=== PATIENT | female | born 1985 | race Caucasian/White ===

== ENCOUNTER 2020-07-24 12:47 | Outpatient (REF) | payer MEDICAID, SELFPAY ==
[2020-07-24 14:41] LABS: Hematocrit 38.1 % (37-47); Hemoglobin 12.2 g/dl (12.0-16.0); Mean Corpuscular Volume 93.8 fL (80-98); Platelet Count 293 X10*3/uL (160-400); Red Blood Count 4.06 X10*6/uL (4.20-5.50); Red Cell Distribution Width 12.2 % (11.0-16.0); White Blood Count 8.7 X10*3/uL (4.8-10.8)
[2020-07-24 15:26] LABS: HCG Quantitative < 2 mIU/mL; Thyroid Stimulating Hormone 1.75 mIU/mL (0.32-4.0)
[2020-07-25 22:47] LABS: CA-125 18 U/mL (<35)
== END 2020-07-24 12:48 | disposition home or self-care (01) ==
LOC: HO.LAB 12:47
PROVIDERS: PCP Internal Medicine; Visit Provider Obstetrics & Gynecology
DX: N83.292 Other ovarian cyst, left side (principal); N92.1 Excessive and frequent menstruation with irregular cycle
CPT/HCPCS: 36415; 84443; 84702; 85027; 86304

== ENCOUNTER 2020-08-02 09:42 | Outpatient (REF) | payer MEDICAID, SELFPAY ==
[2020-08-08 07:21] LABS: HPV mRNA E6/E7 rflx Not Detected (Not Detected)
== END 2020-08-02 09:43 | disposition home or self-care (01) ==
LOC: HO.LAB 09:42
PROVIDERS: Visit Provider Advanced Practice Midwife
DX: Z01.419 Encounter for gynecological examination (general) (routine) without abnormal findings (principal); N64.4 Mastodynia; Z20.2 Contact with and (suspected) exposure to infections with a predominantly sexual mode of transmission
CPT/HCPCS: 87624; 87625; 88142

== ENCOUNTER 2020-08-06 09:51 | Outpatient (REF) | payer MEDICAID, SELFPAY | END 2020-08-06 09:52 | disposition home or self-care (01) | LOC: HO.LAB 09:51 | PROVIDERS: Visit Provider Obstetrics & Gynecology | DX: N92.1 Excessive and frequent menstruation with irregular cycle (principal); R31.29 Other microscopic hematuria | CPT/HCPCS: 58100; 81025; 88305 ==

== ENCOUNTER → 2020-08-22 13:30 | Outpatient (BNVA) | payer MEDICAID, SELFPAY | PROVIDERS: Visit Provider Obstetrics & Gynecology | DX: Z76.89 Persons encountering health services in other specified circumstances (principal) ==

== ENCOUNTER 2020-10-17 14:07 | Outpatient (REF) | payer MEDICAID, SELFPAY ==
--- NOTE | 2020-10-17 14:11 | US_ITS ---
EXAMINATION: ULTRASOUND PELVIS CLINICAL INFORMATION: Left ovarian cyst. COMPARISON: None TECHNIQUE: Transabdominal and transvaginal ultrasound of the pelvis is performed. FINDINGS: On transabdominal ultrasound the uterus is retroverted and retroflexed measuring 7.4 cm in length, 4.5 cm in AP and 5.4 cm in transverse dimension. The endometrial thickness is 0.4 cm. The uterus is heterogeneous but no focal lesion seen. Right ovary measures 4.6 x 2.6 x 3.0 cm and volume 18.7 mL. There is an irregular shaped cyst measuring 2.2 x 2.3 x 1.1 cm with internal debris likely a complex cyst. Previously complex cyst measured 2.1 x 1.3 x 1.2 cm. A second complex cyst or paraovarian cyst previously is not visualized. However there is a hyperechoic area seen in the ovary measuring 0.6 x 0.5 x 0.4 cm which could be from resolved previously visualized complex cyst. The left ovary measures 5.5 x 2.3 x 2.6 cm and volume 17.2 mL. There is an anechoic cyst with internal echoes measuring 3.9 x 2.1 x 3.1 cm suggestive of a complex cyst. Previous complex cyst measured 2.6 x 1.6 x 2.4 cm with minimal enlargement on the present scan. A small corpus luteal cyst is seen measuring 1.2 x 1.2 x 1.2 cm. There is no free fluid in cul-de-sac. US/US pelvic complete IMPRESSION: 1. Unremarkable uterus. 2. Bilateral complex ovarian cyst. The right complex cyst is stable. The left lateral complex cyst appears slightly increased in size. 3. There is a hyperechoic area within the left ovary likely resolved previously noted paraovarian cyst or new complex cyst. 4. Recommend follow up ultrasound pelvis after 2-3 cycles.
== END 2020-10-17 14:08 | disposition home or self-care (01) ==
LOC: HO.US 14:07
PROVIDERS: Visit Provider Obstetrics & Gynecology
DX: N83.292 Other ovarian cyst, left side (principal)
CPT/HCPCS: 76830; 76856

== ENCOUNTER → 2020-10-31 14:35 | Outpatient (BNVA) | payer MEDICAID, SELFPAY | PROVIDERS: Visit Provider Obstetrics & Gynecology | DX: N83.291 Other ovarian cyst, right side (principal); N83.292 Other ovarian cyst, left side | CPT/HCPCS: 99212 ==

== ENCOUNTER 2020-11-02 11:03 | Outpatient (REF) | payer MEDICAID, SELFPAY ==
[2020-11-03 09:27] LABS: CA-125 26 U/mL (<35)
[2020-11-05 08:03] LABS: HIV AB/AG Nonreactive (Nonreactive); HIV Num 1 0.05 S/CO (0.00-0.99); ~HepC Num1 0.16 S/CO (0.00-0.79); ~Hepatitis C Antibody Nonreactive (Nonreactive)
[2020-11-05 08:24] LABS: HBsAGNum1 0.13 S/CO (0.00-0.99); Hepatitis B Surface Antigen Negative (Negative)
[2020-11-05 14:24] LABS: Syphilis Screen Nonreactive (Nonreactive)
== END 2020-11-02 11:04 | disposition home or self-care (01) ==
LOC: HO.LAB 11:03
PROVIDERS: Advanced Practice Midwife; PCP Internal Medicine; Visit Provider Obstetrics & Gynecology
DX: N83.292 Other ovarian cyst, left side (principal); Z20.2 Contact with and (suspected) exposure to infections with a predominantly sexual mode of transmission
CPT/HCPCS: 36415; 86304; 86780; 86803; 87340; 87389

== ENCOUNTER → 2021-02-11 11:03 | Outpatient (BNVA) | payer MEDICAID, SELFPAY | PROVIDERS: Visit Provider Obstetrics & Gynecology ==

== ENCOUNTER → 2022-03-27 09:06 | Outpatient (BNVA) | payer MEDICAID, SELFPAY | PROVIDERS: PCP Internal Medicine | DX: N32.81 Overactive bladder (principal); R31.29 Other microscopic hematuria; F17.210 Nicotine dependence, cigarettes, uncomplicated | CPT/HCPCS: 51798; 99202 ==

== ENCOUNTER 2022-05-16 11:56 | Outpatient (REF) | payer MEDICAID, SELFPAY ==
[2022-05-16 15:58] LABS: CT PCR NOT DETECTED (Not Detect.); NG PCR NOT DETECTED (Not Detect.)
[2022-05-22 15:21] LABS: HPV mRNA E6/E7 rflx Not Detected (Not Detected)
== END 2022-05-16 11:57 | disposition home or self-care (01) ==
LOC: HO.LAB 11:56
PROVIDERS: Visit Provider Advanced Practice Midwife
DX: Z01.419 Encounter for gynecological examination (general) (routine) without abnormal findings (principal); Z11.51 Encounter for screening for human papillomavirus (HPV)
CPT/HCPCS: 87491; 87591; 87624; 88142

== ENCOUNTER 2022-05-19 11:19 | Outpatient (REF) | payer MEDICAID, SELFPAY ==
--- NOTE | ~2022-05-19 | US_ITS ---
EXAMINATION: US PELVIS CLINICAL INFORMATION: Pelvic and perineal pain. COMPARISON: Ultrasound pelvis 10/17/2020. TECHNIQUE: Ultrasound of the pelvis is performed using both transabdominal and transvaginal transducers along with Doppler. Transvaginal imaging is performed due to inadequate visualization transabdominally. FINDINGS: Uterus: The uterus is retroverted, retroflexed and measures 7.7 cm in length, 4.0 cm AP and 4.6 cm in transverse dimension. The double wall endometrial thickness is 1.0 cm. The uterus is smooth in contour and has normal myometrial echogenicity. There is a lesion in the right posterior fundus measuring 1.3 x 1.1 x 1.3 cm. There is an anechoic simple cysts in the body of uterus measuring 0.3 x 0.2 x 0.4 cm. Small nabothian cysts seen in the cervix Adnexa: Both ovaries are visualized. There is normal color flow to the adnexa. There is no ovarian torsion. There is no pelvic ascites or fluid collection. There are bilateral cystic structures in the adnexa likely paraovarian cyst or hydrosalpinx. The right adnexa tubular structure measures 6.9 x 3.9 x 5.7 cm and left adnexal tube structure measures 5.3 x 5.3 x 3.6 cm. Right ovary measures 2.8 x 2.8 x 1.9 cm and volume 7.8 mL. There is a dominant follicle. Left ovary measures 1.8 x 2.3 x 1.8 cm and volume 3.9 mL. No focal lesion seen. The bladder wall is trabeculated. There is no free fluid. US/US pelvic and transvaginal IMPRESSION: Bilateral paraovarian cyst or hydrosalpinx in the adnexa. The uterus has a solitary fibroid and a myometrial cyst. Unremarkable left ovary. Enlarged right ovary with likely dominant follicle.
== END 2022-05-19 11:20 | disposition home or self-care (01) ==
LOC: HO.US 11:19
PROVIDERS: Visit Provider Advanced Practice Midwife
DX: R10.2 Pelvic and perineal pain (principal)
CPT/HCPCS: 76830; 76856

== ENCOUNTER → 2022-05-27 10:41 | Outpatient (BNVA) | payer MEDICAID, SELFPAY | PROVIDERS: PCP Internal Medicine; Visit Provider Advanced Practice Midwife | DX: Z71.2 Person consulting for explanation of examination or test findings (principal) | CPT/HCPCS: 99212 ==

== ENCOUNTER 2022-06-04 11:44 | Outpatient (REF) | payer MEDICAID, SELFPAY ==
--- NOTE | ~2022-06-04 | US_ITS ---
EXAMINATION: US RETROPERITONEAL LIMITED (RENAL ONLY) CLINICAL INFORMATION: Microscopic hematuria. COMPARISON: CT abdomen and pelvis 02/03/2020. TECHNIQUE: Real-time imaging of the kidneys. FINDINGS: RIGHT KIDNEY: 10.0 x 3.8 x 3.9 cm (SAG x AP x TRV). The kidney is normal in size, contour, and echogenicity. Renal cortical thickness is normal. No calculi or focal parenchymal lesions. No hydronephrosis. LEFT KIDNEY: 10.7 x 5.3 x 5.4 cm (SAG x AP x TRV). The kidney is normal in size, contour, and echogenicity. Renal cortical thickness is normal. No calculi or focal parenchymal lesions. No hydronephrosis. US/US renal BI IMPRESSION: Normal appearance of both kidneys..
== END 2022-06-04 11:45 | disposition home or self-care (01) ==
LOC: HO.US 11:44
DX: R31.29 Other microscopic hematuria (principal)
CPT/HCPCS: 76775

== ENCOUNTER 2023-05-25 08:03 | Outpatient (REF) | payer MEDICAID, SELFPAY ==
--- NOTE | ~2023-05-25 | US_ITS ---
EXAMINATION: US RETROPERITONEAL LIMITED (RENAL ONLY) CLINICAL INFORMATION: Other microscopic hematuria. COMPARISON: Bilateral renal ultrasound dated 06/04/2022. CT abdomen and pelvis with contrast dated 02/03/2020. TECHNIQUE: Real-time imaging of the kidneys. Limited visualization due to bowel gas. FINDINGS: RIGHT KIDNEY: 10.8 x 4.3 x 6.0 cm (SAG x AP x TRV). No hydronephrosis. No renal calculi. Renal cortical thickness is normal. Limited visualization. LEFT KIDNEY: 10.4 x 5.0 x 6.4 cm (SAG x AP x TRV). No hydronephrosis. No renal calculi. Renal cortical thickness is normal. Limited visualization. US/US renal BI IMPRESSION: No hydronephrosis. No renal calculi. Limited visualization.
== END 2023-05-25 08:04 | disposition home or self-care (01) ==
LOC: HO.US 08:03
PROVIDERS: Visit Provider Nurse Practitioner Family
DX: R31.29 Other microscopic hematuria (principal)
CPT/HCPCS: 76775

== ENCOUNTER 2023-05-28 10:03 | Outpatient (AMB) | payer MEDICAID, SELFPAY ==
--- NOTE | 2023-05-28 10:23 | A.OFFVIS_ITS ---
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 Present ([place]) Allergies ampicillin Allergy (Unknown, Verified 05/28/23 10:30) rash Penicillins [PCN] Allergy (Unknown, Verified 05/28/23 10:30) RASH tuberculin, purified protein deriva [TB TEST] Allergy (Unknown, Verified 05/28/23 10:30) UNK Medication List - Last Reconciled 05/28/23 by Paula Downing CNM cholecalciferol (vitamin D3) 50 mcg PO DAILY ibuprofen 800 mg PO Q8H PNV,calcium [id number] acid 27 mg iron- 1 mg ( Vitamins Plus Low Iron) 1 tab PO DAILY Is last menstrual period known: No (Last month at the end of the month) Post menopausal: No HPI 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 She had her Pap smear done last year and it was negative previous to that it was unsatisfactory but she has no history of abnormal Paps. She had been seen for multiple visits by other providers in this office and had been referred to [facility] for complex ovarian cyst. She says the only thing she ended up taking was an antibiotic for 7 days that was a big pill she did not want to take control pills because she wanted to conceive at that time and she is sort of giving up on that at this time. She says she has with her current partner for 4 years she says she has been having pain in her cervix for 4 years. She says it is there all the time but she also says it comes and goes and she does not notice a pattern although she says it is not when she has her period. She is not contraceptive thing and does not want to contraceptive. She had her only child 21 years ago. [facility] Medical History Chronic pelvic pain in female Complex cyst of both ovaries Surgical History History of surgery of head Family History Maternal Grandmother Diabetes Mother Diabetes Social History (Updated 05/28/23 @ 10:32 by MATHIEU Ledezma) Household Members Other:: daughter Housing: House Alcohol intake: never Patient Tobacco Use Status: Current everyday Tobacco user Cigarettes Per Day: 3 Sexual orientation: Straight/Heterosexual Gender identity: Female Female Reproductive History Menstrual Age of Menarche: 12 Duration of menses: 8-10 days control method: none Total pregnancies: 2 Full term: 1 Number of Living Children: 1 Ab induced: 1 Date of last pap smear: 05/19/22 (negative) History of abnormal pap smear: No Physical Exam Vital Signs: Last Vital Signs BP 114/76 05/28/23 10:25 BMI result Body Mass Index 31.2 Const General: healthy appearing, comfortable, no acute distress, well developed and alert Nutritional Appearance: average body habitus Orientation/consciousness: patient oriented x3 Limitations: no limitations HEENT Head: Yes normocephalic Neck Neck: Yes normal visual inspection Chest Chest palpation & inspection: normal inspection of the chest Breast/axilla inspection: normal inspection of the breasts and normal inspection of the axillae Breast/axilla palpation: normal palpation of the breasts and normal palpation of the axillae Resp Effort & Inspection: normal respiratory effort GI Inspection: Yes normal to inspection, No Abdominal wall edema and No distended Palpation (GI): Soft to palpation and nontender General: Yes bladder normal to palpation External Female Exam: normal external appearance and normal appearance of the urethra Speculum Exam - Vagina: normal appearance of the vagina, normal palpation and normal vaginal discharge Speculum Exam - Cervix: normal appearance of the cervix, normal palpation and nontender Bimanual exam- vagina & uterus: normal bimanual exam, normal palpation, uterine size normal, bladder normal to palpation, consistency normal, normal palpation, uterine mobility normal, uterine shape normal, No Cervical tenderness present, non-tender (Retroverted. Appropriately tender with palpation of corpus/fundus posterio), no cervical motion tenderness and other (Uterus is markedly retroverted , patient is appropriatetly tender at corpus) Bimanual Exam- Adnexa, other: normal adnexae, no masses, normal and No adnexal tenderness Neuro General: patient oriented x3 Results Reviewed Results Reviewed: Previous visits by other providers previous ultrasounds previous Pap smears and previous endometrial biopsies all reviewed.. Assessment & Plan Assessment & Plan (1) Complex cyst of both ovaries: Comment: Persistent with hydrosalpinx Code(s): N83.291 - Other ovarian cyst, right side; N83.292 - Other ovarian cyst, left side (2) Pelvic pain: Code(s): R10.2 - Pelvic and perineal pain (3) Well woman exam with routine gynecological exam: Code(s): Z01.419 - Encounter for gynecological examination (general) (routine) without abnormal findings (4) Dyspareunia in female: Comment: Most likely related to retroverted uterus, previous ultrasound findings appreciated. Code(s): N94.10 - Unspecified dyspareunia Plan -----Discussed in this visit the following: healthy balanced diet, regular and consistent exercise, getting recommended health screens, doing the best she can for her particular health concerns, kegel exercises, pap smear screening and followup recommendations, mammography screening and SBE, normal changes in cycles in her life stage--- . She has her mammogram appointment already set up for after her birthday in [birth year]. She did inquire as to whether not I recommended panty liners and I do not and I gave her the reasons why. I showed her with an anatomical display model why when the body of the uterus is bumped into posteriorly as in with relations that it is so uncomfortable just as it is during a pelvic exam for almost anybody with her retroverted uterus the body of the uterus is much more sensitive than the cervix. Discussed the most likely finding that there is no pathology with her uterus though we will be checking with the ultrasound to see if there is any change with her previously noted complex cysts for which she declined control pill treatment from [facility]. Additionally hydrosalpinx was noted on ultrasound in the past and that certainly could could contribute to discomfort as well but that interventions to manage those things would be invasive and clearly she has dec ided against those be previously. I am ordering a follow-up ultrasound and we will see her after suggested changes in position with intercourse but also if she gets pain not related intercourse in any way to write down when it happens and keep track. We will see her after the ultrasound to review. She noted that the pain did start 4 years ago when she began with this partner and that is when she is again seeking as well. Orders: Orders Bacterial Vaginosis Panel Today Z01.419 - Encounter for gynecological examination (general) (routine) without abnormal findings CT NG by PCR Today Z01.419 - Encounter for gynecological examination (general) (routine) without abnormal findings US pelvic and transvaginal Today N83.291 - Other ovarian cyst, right side, N83.292 - Other ovarian cyst, left side, N94.10 - Unspecified dyspareunia, R10.2 - Pelvic and perineal pain, Z01.419 - Encounter for gynecological examination (general) (routine) without abnormal findings Coding Level of Care Code New Pt Prev Care 18-39yr([id number] Diagnoses Complex cyst of both ovaries N83.291; N83.292 Pelvic pain R10.2 Well woman exam with routine gynecological exam Z01.419 Dyspareunia in female N94.10
[2023-05-28 10:25] VITALS: BP 114/76; BMI 31.2
== END 2023-05-28 11:16 | disposition home or self-care (01) ==
LOC: HO.HWS 10:03
PROVIDERS: PCP Registered Nurse; Visit Provider Advanced Practice Midwife
DX: N83.291 Other ovarian cyst, right side (principal); N83.292 Other ovarian cyst, left side; R10.2 Pelvic and perineal pain; Z01.419 Encounter for gynecological examination (general) (routine) without abnormal findings; N94.10 Unspecified dyspareunia
CPT/HCPCS: 99385

== ENCOUNTER 2023-05-28 10:03 | Outpatient (REF) | payer MEDICAID, SELFPAY ==
[2023-05-29 04:16] LABS: CT PCR NOT DETECTED (Not Detect.); NG PCR NOT DETECTED (Not Detect.)
[2023-05-29 15:42] LABS: BV Int Neg Control Negative (Negative); BV Int Pos Control Positive (Positive)
== END 2023-05-28 10:04 | disposition home or self-care (01) ==
LOC: HO.LNP 10:03
PROVIDERS: PCP Registered Nurse; Visit Provider Advanced Practice Midwife
DX: Z01.419 Encounter for gynecological examination (general) (routine) without abnormal findings (principal); N83.291 Other ovarian cyst, right side; N83.292 Other ovarian cyst, left side; R10.2 Pelvic and perineal pain; N94.10 Unspecified dyspareunia; Z79.899 Other long term (current) drug therapy
CPT/HCPCS: 0353U; 87480; 87510; 87660; 99385

== ENCOUNTER 2023-06-05 10:15 | Outpatient (REF) | payer MEDICAID, SELFPAY ==
[2023-06-05 17:23] LABS: Urine Cytology See Pathology rpt
== END 2023-06-05 10:16 | disposition home or self-care (01) ==
LOC: HO.LNP 10:15
PROVIDERS: Visit Provider Nurse Practitioner Family
DX: R31.29 Other microscopic hematuria (principal); F17.200 Nicotine dependence, unspecified, uncomplicated
CPT/HCPCS: 81003; 88112; 99212

== ENCOUNTER 2023-06-05 10:15 | Outpatient (AMB) | payer MEDICAID, SELFPAY ==
--- NOTE | 2023-06-05 10:18 | MHC.OFFVIS ---
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 Tony. She presents to the office today for follow-up of her microscopic hematuria. In discussion with the patient today she reports to be doing and feeling well. She denies any urinary issues or concerns at this time. She does report a longstanding smoking history since the age of [age] years old on and off. She reports smoking 1-2 packs per day. However more recently has been limiting herself to 2 cigarettes a day. She denies any known chemical exposure. She denies urinary urgency, urinary frequency, incontinence, nocturia, hematuria, dysuria, foul smelling urine, changes to urinary stream, flank pain, fever, and or chills. She is happy with her current voiding parameters. Discussed further microscopic hematuria workup versus surveillance monitoring. Discussed risks and benefits of surveillance monitoring verses further microscopic hematuria workup. In office urinalysis today with 2+ microscopic hematuria. Patient otherwise denies any issues or concerns at this time. [facility] Medical History Chronic pelvic pain in female Complex cyst of both ovaries Surgical History History of surgery of head Family History Maternal Grandmother Diabetes Mother Diabetes Social History (Updated 05/28/23 @ 10:32 by MATHIEU Ledezma) Household Members Other:: daughter Housing: House Alcohol intake: never Patient Tobacco Use Status: Current everyday Tobacco user Cigarettes Per Day: 3 Sexual orientation: Straight/Heterosexual Gender identity: Female Female Reproductive History Menstrual Age of Menarche: 12 Review of Systems Const All systems reviewed & are unremarkable except as noted in HPI and below Physical Exam Const General: cooperative, comfortable, no acute distress, well developed, alert and awake Orientation/consciousness: patient oriented x3 HEENT Head: Yes normal to inspection, Yes normocephalic and Yes atraumatic Ears: hearing grossly normal bilaterally Eyes General: appearance normal, both eyes and all related structures Neck Neck: Yes normal visual inspection and Yes trachea midline Chest Chest palpation & inspection: normal inspection of the chest Resp Effort & Inspection: normal respiratory effort and able to speak in complete sentences Cardio Rate: regular rate GI Inspection: Yes normal to inspection General: Yes no CVA tenderness Back/Spine/Pelvis Back: no CVA tenderness Skin General skin exam: no rashes or lesions noted Neuro General: patient oriented x3 Extrem General: Yes normal to inspection Psych Appearance: grossly normal and well kempt Mental Status: mental status grossly normal Speech and movement: Normal speech and movement present and Clear speech present Affect: normal affect Attitude: cooperative Thought process: Normal thought process present Thought content: Normal thought content present Insight: Good insight present (Psych) Judgement: Good judgement present (Psych) Results AMB Urinalysis, Automated UA Leukoctes 0 Roopa/uL Last Edit by Sudarshan Man on 06/05/23 10:39 UA Nitrite Last Edit by Sudarshan Man on 06/05/23 10:39 UA Urobilinogen 0.2 mg/dL Last Edit by Sudarshan Man on 06/05/23 10:39 UA Protein 0 mg/dL Last Edit by Sudarshan Man on 06/05/23 10:39 UA pH 6.0 Last Edit by Sudarshan Man on 06/05/23 10:39 UA Blood 80 Zeb/uL Last Edit by Sudarshan Man on 06/05/23 10:39 UA Specific [place] 1.020 Last Edit by Sudarshan Man on 06/05/23 10:39 UA Ketone Negative Last Edit by Sudarshan Man on 06/05/23 10:39 UA Bilirubin 0 mg/dL Last Edit by Sudarshan Man on 06/05/23 10:39 UA Glucose 0 mg/dL Last Edit by Sudarshan Man on 06/05/23 10:39 Assessment & Plan Assessment & Plan (1) Microscopic hematuria: Code(s): R31.29 - Other microscopic hematuria (2) Nicotine dependence: Code(s): F17.200 - Nicotine dependence, unspecified, uncomplicated Plan In office urinalysis results reviewed with the patient today; will send for urine cytology. Discussed at length importance of quitting smoking for overall health and well-being. Discussed at length surveillance monitoring verses further microscopic hematuria workup. Will obtain CT urogram for further assessment evaluation. BUN and creatinine ordered for imaging. Discussed, educated, instructed on the importance of drinking plenty of water daily. Patient denies any bothersome urinary issues or concerns at this time. Follow-up in office cystoscopy with imaging to be completed prior; or sooner with any issues, concerns, and or questions. Orders: Orders Urine Cytology Today R31.29 - Other microscopic hematuria Blood Urea Nitrogen Today R31.29 - Other microscopic hematuria Creatinine Today R31.29 - Other microscopic hematuria CT urogram Today F17.200 - Nicotine dependence, unspecified, uncomplicated, R31.29 - Other microscopic hematuria AMB Urinalysis Automated Today Z13.9 - Encounter for screening, unspecified Patient Instructions: The patient had an opportunity to ask questions regarding the treatment plan. All questions were answered. Physical exam, labs, and imaging were discussed and reviewed in detail. As well as risks, benefits, and discussion of treatment choices. No major barriers to understanding were identified. The patient expressed understanding and agreement with the above treatment plan. The patient was made aware they should contact our office by phone for worsening of their current condition, the appearance of new symptoms, or with any questions or concerns. Compliance is encouraged with any medications and follow up testing that is ordered. It is a privilege to be allowed the opportunity to participate in? your urological care.? Again, if you have any questions or concerns If you have any questions or concerns please do not hesitate to contact me. The office is [phone]. This note is constructed using voice recognition software. While every effort has been made to ensure accuracy car framer errors may have been included. Yours sincerely, LUCITA Johnson Coding Level of Care Code New Pt Level 3 (22325) Diagnoses Microscopic hematuria R31.29 Nicotine dependence F17.200
== END 2023-06-05 10:50 | disposition home or self-care (01) ==
PROVIDERS: PCP Registered Nurse; Visit Provider Nurse Practitioner Family
DX: R31.29 Other microscopic hematuria (principal); F17.200 Nicotine dependence, unspecified, uncomplicated; Z13.9 Encounter for screening, unspecified
CPT/HCPCS: 99203

== ENCOUNTER 2023-06-23 10:27 | Outpatient (REF) | payer MEDICAID, SELFPAY ==
--- NOTE | ~2023-06-23 | US_ITS ---
EXAMINATION: US PELVIS CLINICAL INFORMATION: Pelvic pain, ovarian cyst. COMPARISON: Ultrasound pelvis 05/19/2022. TECHNIQUE: Ultrasound of the pelvis is performed using both transabdominal and transvaginal transducers along with Doppler. Transvaginal imaging is performed due to inadequate visualization transabdominally. FINDINGS: Uterus: The uterus is retroverted, retroflexed and measures 8.3 x 4.5 x 5.7 cm. 1.6 x 1.2 x 1.2 cm fibroid was not identified on the prior exam. 2.3 x 2.4 x 2.0 cm fibroid previously measured 1.3 x 0.2 x 0.4 cm. Small amount of free fluid in the pelvis. Endometrial thickness is 1.2 cm. Small nabothian cysts in the cervix. Right ovary is seen only on transabdominal ultrasound images and measures 2.2 x 1.7 x 2.4 cm, volume 4.7 mL. Visualization of the right ovary is limited. 5.5 x 4.9 x 5.6 cm right adnexal tubular/complex cystic, septated structure redemonstrated adjacent to the right ovary, previously 6.9 x 3.9 x 5.7 cm. Left ovary measures 3.2 x 2.1 x 2.5 cm, volume 8.8 mL. Mildly complex 1.9 x 0.7 x 1.5 cm left ovarian cyst with a few low-level internal echoes was not previously identified. Correlation with menstrual history recommended to determine further management, although this is likely physiologic and, in this case, in a premenopausal patient, there would be no indication for followup imaging. Left adnexal tubular/complex cystic, septated structure measures 5.4 x 5.2 x 4.6 cm, previously 5.3 x 5.3 x 3.6 cm. US/US pelvic and transvaginal IMPRESSION: 1. Persistent large bilateral adnexal tubular/complex cystic structures. Differential considerations include hydrosalpinx or paraovarian/ovarian cyst. MRI could be considered for further evaluation. 2. Fibroid uterus. 3. Endometrial thickness is 1.2 cm. 4. Limited visualization of the right ovary. 5. Mildly complex 1.9 cm left ovarian cyst was not previously identified. Recommend gynecologic consultation and correlation with menstrual history to determine further management.
== END 2023-06-23 10:28 | disposition home or self-care (01) ==
LOC: HO.US 10:27
PROVIDERS: PCP Registered Nurse; Visit Provider Advanced Practice Midwife
DX: N94.10 Unspecified dyspareunia (principal); N83.291 Other ovarian cyst, right side; N83.292 Other ovarian cyst, left side; R10.2 Pelvic and perineal pain
CPT/HCPCS: 76830; 76856

== ENCOUNTER 2023-07-01 14:58 | Outpatient (REF) | payer MEDICAID, SELFPAY ==
--- NOTE | ~2023-07-01 | CT_ITS ---
EXAMINATION: CT ABDOMEN AND PELVIS WITHOUT AND WITH CONTRAST CLINICAL INFORMATION: Microscopic hematuria COMPARISON: Renal ultrasound from 05/25/[address] scan of the abdomen and pelvis from 02/03/2020 TECHNIQUE: Noncontrast CT of the abdomen and pelvis is performed followed by split bolus contrast-enhanced images using 85 mL Omnipaque 350 contrast.? Postcontrast imaging is performed during the combined nephrogram and excretion phase. Sagittal and coronal reformatted images were obtained on the technologist's workstation for both the precontrast and postcontrast phases. This CT examination was performed using dose optimization techniques as appropriate, variously including the following: *Automated exposure control *Adjustment of mA and/or kV according to patient size (this includes techniques or standardized protocols for targeted exams where dose is matched to indication/reason for exam; i.e. extremities or head) *Use of iterative reconstruction technique DLP: 807 mGy-cm FINDINGS: LUNG BASES: The visualized lung bases are unremarkable. LIVER, GALLBLADDER, AND BILIARY TREE: The liver is normal in size, shape, and attenuation. No focal hepatic lesion or biliary ductal dilatation is present. The gallbladder is unremarkable with no evidence of radiopaque gallstones, gallbladder wall thickening, or obvious pericholecystic inflammatory changes. PANCREAS: Unremarkable. SPLEEN: Unremarkable. ADRENAL GLANDS: Unremarkable. KIDNEYS AND URETERS: The kidneys are normal in size, shape, and attenuation. No hydronephrosis, hydroureter, or calculi seen. No perinephric stranding. BLADDER: Unremarkable. GASTROINTESTINAL TRACT: The small and large bowel are unremarkable. The appendix is unremarkable. ABDOMINAL WALL: No significant hernia is appreciated. LYMPH NODES: Normal. VASCULAR: Unremarkable. PELVIC VISCERA: There is stable appearance of retroverted uterus and several adnexal cysts with septations mostly on the left, the largest cystic component in front of the uterus measured 5.0 x 3.5 cm AVM component to the left of the uterus measured 3.0 x 2.9 cm findings most likely due to hydrosalpinx and stable. Right adnexa is unremarkable. There is no fluid in the pelvis. OSSEUS STRUCTURES: Unremarkable. CT/CT urogram IMPRESSION: Chronic hydrosalpinx on the left. Unremarkable kidneys ureters and urinary bladder.
[2023-07-01] MEDS: iohexoL 350 MG/ML 100 ML INFUS..BTL IV (16:00)
== END 2023-07-01 14:59 | disposition home or self-care (01) ==
LOC: HO.CT 14:58
PROVIDERS: PCP Registered Nurse; Visit Provider Nurse Practitioner Family
DX: R31.29 Other microscopic hematuria (principal); F17.200 Nicotine dependence, unspecified, uncomplicated
CPT/HCPCS: 74178; Q9967

== ENCOUNTER 2023-07-15 12:46 | Outpatient (AMB) | payer MEDICAID, SELFPAY ==
--- NOTE | 2023-07-15 12:54 | A.OFFVIS_ITS ---
Intake Intake Visit Reasons: cysto/CT Intake Note: Patient presents today for a CYSTOSCOPY Procedure, CT Scan booked on 07/01/2023: Meds: None Allergies to Antibiotic: Ampicillin & Penicillin Blood Thinner: None Urinalysis test cleared for Cysto Disposable Uro-G Cystoscope Cannula: Lot: [id number] Exp: 02/15/2025 Plc Controls Engineer Required: Yes Plc Controls Engineer Language: [place] Information Interpreted: non-clinical & clinical Accompanied by: Self / Same As Patient Allergies ampicillin Allergy (Unknown, Verified 07/15/23 12:55) rash Penicillins [PCN] Allergy (Unknown, Verified 07/15/23 12:55) RASH tuberculin, purified protein deriva [TB TEST] Allergy (Unknown, Verified 07/15/23 12:55) UNK HPI cysto/CT HPI Details Carolyn Araya is a 37-year-old female who presents today to the office for a follow up Cysto/CT scan. 07/15/23 ? A certified building maintenance supervisor was present during the visit. The patient was previously last seen by Kerri Mondragon NP, on 06/05/23 for microscopic hematuria and nephrolithiasis. Co-morbidity nicotine dependence since the age of [age] years old on and off. She reports smoking 1-2 packs per day. However, more recently, she has been limiting herself to two cigarettes a day. She has occasional urinary incontinence with urgency, which is not significantly bothersome, and wears a pad every day. She noticed an occasional odor from her urine, but when checked, she was told she did not have a UTI. I have discussed that it may be that the urine is concentrated, and I have encouraged her to increase her water intake. We discussed avoiding dietary bladder irritants today. 07/01/23 ? CT urogram result reviewed -- The kidneys are normal in size, shape, and attenuation. No hydronephrosis, hydroureter, or calculi seen. 06/10/23: Urine Cytology result reviewed -- Negative for high-grade urothelial carcinoma. Evaluation today-- Blood: 0 Zeb/uL, leukocytes: 0. Proteins: 15 ml/dl. Cystoscopy findings? There is a mild bladder wall thickening. There is no suspicious bladder lesions noted. Plan: The patient will follow up in one year with Kerri Mondragon, and will monitor urinalysis, and repeat urine cytology PRN. PFSH Medical History (Updated 07/15/23 @ 14:12 by Rafat Walter) Bladder wall thickening Chronic pelvic pain in female Complex cyst of both ovaries Surgical History (Updated 07/15/23 @ 12:56 by MATHIEU Gorman) Hx of cystoscopy History of surgery of head Family History Maternal Grandmother Diabetes Mother Diabetes Social History Household Members Other:: daughter Housing: House Alcohol intake: never Patient Tobacco Use Status: Current everyday Tobacco user Cigarettes Per Day: 3 Sexual orientation: Straight/Heterosexual Gender identity: Female Female Reproductive History Menstrual Age of Menarche: 12 Review of Systems Const All systems reviewed & are unremarkable except as noted in HPI and below Reports no additional complaints Eyes Reports no additional complaints ENT Reports no additional complaints Card Reports no additional complaints Resp Reports no additional complaints GI Reports no additional complaints Musc Reports no additional complaints Skin/Breast Reports system reviewed and no additional complaints, except as documented Neuro Reports no additional complaints Psych Reports no additional complaints Endo Reports no additional complaints Rojas/Lymph Reports no additional complaints Aller/Immun Reports no additional complaints Physical Exam Const General: healthy appearing, no acute distress and well developed Orientation/consciousness: patient oriented x3 HEENT Head: Yes normocephalic and Yes atraumatic Eyes Conjunctivae: conjunctivae normal Neck Neck: Yes normal visual inspection Chest Chest palpation & inspection: normal inspection of the chest Resp Effort & Inspection: normal respiratory effort Cardio Rate: regular rate GI Inspection: Yes normal to inspection Other: pelvic floor well supported. Skin General skin exam: no rashes or lesions noted Neuro General: patient oriented x3 Extrem General: Yes no pedal edema Psych Appearance: grossly normal Affect: normal affect Office Procedures Cystoscopy Consent Discussed risk and benefit or proposed procedure with the patient. Information consent for procedure given to the patient. Discussed technical aspects, risks, benefits and alternatives in full. Addressed all of the patient's questions and concerns regarding the procedure. The patient demonstrated knowledge and understanding. They wish to proceed with this procedure. Preparation The patient was prepped in the usual manner. A shotblast operator was present and in the room. Genitalia was prepped with betadine solution in a sterile manner. Lidocaine Jelly 2% was placed into the urethra and 16Fr flexible Olympus cystoscope was inserted into the meatus after adequate lubrication. Procedure Time out per protocol performed. Bladder Inspection Bladder Inspection: The bladder was inspected in its entirety with utilization retroflexion displaying: Tumor(s): none visualized Trabeculation: mild to moderate Mucosal Erthema: N/A Orifices: normal shape and position Urethra: normal Cystoscopy findings: no suspicious bladder lesions visualized [id number] DISPOSABLE SCOPE URO-G FLEXIBLE SCOPE Procedure code (CPT) selection complete Office Meds lidocaine HCl 2 % mucosal jelly in applicator Performing Provider: Jaren Hunter MD [facility] Administered by: Tricia Soto RN on 07/15/23 13:47 Dose Route Admin Location Dispensed Lot Number Expiration Date NDC Telehealth Nurse 10 mL intra-urethral 20 mL naproxen 500 mg tablet Performing Provider: Jaren Hunter MD Performing Location[facility] Administered by: Tricia Soto RN on 07/15/23 13:47 Dose Route Admin Location Dispensed Lot Number Expiration Date NDC Telehealth Nurse 500 mg PO 1 tab ciprofloxacin HCl 500 mg tablet Performing Provider: Jaren Hunter MD Performing Location: [facility] Administered by: Tricia Soto RN on 07/15/23 13:47 Dose Route Admin Location Dispensed Lot Number Expiration Date NDC Telehealth Nurse 500 mg PO 1 tab Results AMB Urinalysis, Automated UA Leukoctes 0 Roopa/uL Last Edit by MATHIEU Gorman on 07/15/23 13:22 UA Nitrite Negative Last Edit by MATHIEU Gorman on 07/15/23 13:22 UA Urobilinogen 0.2 mg/dL Last Edit by MATHIEU Gorman on 07/15/23 13:2 2 UA Protein 15 mg/dL Last Edit by Brittany Valentine A on 07/15/23 13:22 UA pH 7.0 Last Edit by Brittany Valentine Virgie on 07/15/23 13:22 UA Blood 0 Zeb/uL Last Edit by Brittany Valentine A on 07/15/23 13:22 UA Specific [place] 1.020 Last Edit by Brittany [facility] on 07/15/23 13: 22 UA Ketone Positive Last Edit by Brittany [facility] on 07/15/23 13:22 5 mg/dL Brittany Valentine 07/15/23 13:22 UA Bilirubin 1 mg/dL Last Edit by Brittany Valentine Virgie on 07/15/23 13:22 1+ Brittany Valentine 07/15/23 13:22 UA Glucose 0 mg/dL Last Edit by Brittany Valentine Virgie on 07/15/23 13:22 Results Reviewed Results Reviewed: Laboratory Last Values Urine pH (Auto) 7.0 07/15/23 12:56 Specific [place] (Auto) 1.020 07/15/23 12:56 Urine Protein (Auto) 15 mg/dL 07/15/23 12:56 Glucose (UA)(Auto) 0 mg/dL 07/15/23 12:56 Urine Ketones (Auto) Positive 07/15/23 12:56 Urine Blood (Auto) 0 Zeb/uL 07/15/23 12:56 Urine Nitrite (Auto) Negative 07/15/23 12:56 Urine Bilirubin (Auto) 1 mg/dL 07/15/23 12:56 Urine Urobilinogen (Auto) 0.2 mg/dL 07/15/23 12:56 Leukocyte Esterase (Auto) 0 Roopa/uL 07/15/23 12:56 07/01/23: CT ABDOMEN AND PELVIS WITHOUT AND WITH CONTRAST. FINDINGS: LUNG BASES: The visualized lung bases are unremarkable. LIVER, GALLBLADDER, AND BILIARY TREE: The liver is normal in size, shape, and attenuation. No focal hepatic lesion or biliary ductal dilatation is present. The gallbladder is unremarkable with no evidence of radiopaque gallstones, gallbladder wall thickening, or obvious pericholecystic inflammatory changes. PANCREAS: Unremarkable. SPLEEN: Unremarkable. ADRENAL GLANDS: Unremarkable. KIDNEYS AND URETERS: The kidneys are normal in size, shape, and attenuation. No hydronephrosis, hydroureter, or calculi seen. No perinephric stranding. BLADDER: Unremarkable. GASTROINTESTINAL TRACT: The small and large bowel are unremarkable. The appendix is unremarkable. ABDOMINAL WALL: No significant hernia is appreciated. LYMPH NODES: Normal. VASCULAR: Unremarkable. PELVIC VISCERA: There is stable appearance of retroverted uterus and several adnexal cysts with septations mostly on the left, the largest cystic component in front of the uterus measured 5.0 x 3.5 cm AVM component to the left of the uterus measured 3.0 x 2.9 cm findings most likely due to hydrosalpinx and stable. Right adnexa is unremarkable. There is no fluid in the pelvis. OSSEUS STRUCTURES: Unremarkable. IMPRESSION: Chronic hydrosalpinx on the left. Unremarkable kidneys ureters and urinary bladder. 06/23/23: US PELVIC FINDINGS: Uterus: The uterus is retroverted, retroflexed and measures 8.3 x 4.5 x 5.7 cm. 1.6 x 1.2 x 1.2 cm fibroid was not identified on the prior exam. 2.3 x 2.4 x 2.0 cm fibroid previously measured 1.3 x 0.2 x 0.4 cm. Small amount of free fluid in the pelvis. Endometrial thickness is 1.2 cm. Small nabothian cysts in the cervix. Right ovary is seen only on transabdominal ultrasound images and measures 2.2 x 1.7 x 2.4 cm, volume 4.7 mL. Visualization of the right ovary is limited. 5.5 x 4.9 x 5.6 cm right adnexal tubular/complex cystic, septated structure redemonstrated adjacent to the right ovary, previously 6.9 x 3.9 x 5.7 cm. Left ovary measures 3.2 x 2.1 x 2.5 cm, volume 8.8 mL. Mildly complex 1.9 x 0.7 x 1.5 cm left ovarian cyst with a few low-level internal echoes was not previously identified. Correlation with menstrual history recommended to determine further management, although this is likely physiologic and, in this case, in a premenopausal patient, there would be no indication for followup imaging. Left adnexal tubular/complex cystic, septated structure measures 5.4 x 5.2 x 4.6 cm, previously 5.3 x 5.3 x 3.6 cm. IMPRESSION: 1. Persistent large bilateral adnexal tubular/complex cystic structures. Differential considerations include hydrosalpinx or paraovarian/ovarian cyst. MRI could be considered for further evaluation. 2. Fibroid uterus. 3. Endometrial thickness is 1.2 cm. 4. Limited visualization of the right ovary. 5. Mildly complex 1.9 cm left ovarian cyst was not previously identified. 06/10/23: Urine Cytology result reviewed. Collected: 06/05/23 and Received: 06/10/23 Finding: Negative for high-grade urothelial carcinoma. Assessment & Plan Assessment & Plan (1) Microscopic hematuria: Code(s): R31.29 - Other microscopic hematuria (2) Bladder wall thickening: Code(s): N32.89 - Other specified disorders of bladder (3) Urinary urgency: Code(s): R39.15 - Urgency of urination (4) Sensation of pressure in bladder area: Code(s): R39.89 - Other symptoms and signs involving the genitourinary system Plan The patient will follow up in one year with Kerri Mondragon, and will monitor urinalysis, and repeat urine cytology PRN. Orders: Orders AMB Urinalysis Automated Today Z13.9 - Encounter for screening, unspecified AMB Cystoscopy Today R31.29 - Other microscopic hematuria Patient Instructions: The patient had an opportunity to ask questions regarding treatment plan. All questions were answered. Imaging, Laboratory studies and physical exam results were discussed and reviewed in detail. No major barriers to understanding were identified. The patient expressed understanding and agreement with the above treatment plan. The patient is aware they should contact our office by phone for worsening of their current condition or the appearance of new symptoms. Compliance is encouraged with any medications and followup testing that is ordered. It is a privilege to be allowed the opportunity to participate in the urologic care of your patient. If you have any questions or concerns regarding treatment for the above conditions please do not hesitate to contact me. The office telephone contact is [phone]. This note is constructed in part using voice recognition software. While every effort has been made to ensure accuracy civil clerk errors may have been included. Yours sincerely, Jaren Hunter MD Coding Level of Care Code Procedure Only Diagnoses Microscopic hematuria R31.29 Bladder wall thickening N32.89 Urinary urgency R39.15 Sensation of pressure in bladder area R39.89 CPT Codes Cystoscopy - CPT: 09495-[id number] ([id number])
== END 2023-07-15 14:12 | disposition home or self-care (01) ==
PROVIDERS: PCP Registered Nurse; Visit Provider Urology
DX: R31.29 Other microscopic hematuria (principal); N32.89 Other specified disorders of bladder; R39.15 Urgency of urination; R39.89 Other symptoms and signs involving the genitourinary system; Z13.9 Encounter for screening, unspecified
CPT/HCPCS: 52000

== ENCOUNTER → 2023-07-15 12:46 | Outpatient (BNVA) | payer MEDICAID, SELFPAY | PROVIDERS: PCP Registered Nurse; Visit Provider Urology | DX: R31.29 Other microscopic hematuria (principal); R39.15 Urgency of urination; R39.89 Other symptoms and signs involving the genitourinary system; N32.89 Other specified disorders of bladder | CPT/HCPCS: 52000; 81003 ==

== ENCOUNTER 2023-07-28 08:41 | Outpatient (REF) | payer MEDICAID, SELFPAY ==
--- NOTE | ~2023-07-28 | US_ITS ---
EXAMINATION: MM DIAGNOSTIC DIGITAL BREAST TOMOSYNTHESIS, BILATERAL CLINICAL INFORMATION: Patient complains of diffuse bilateral breast pain. COMPARISON: Mammography: This study is a baseline mammogram. MAMMOGRAM: TECHNIQUE: Digital breast tomosynthesis is performed in both the craniocaudal and mediolateral oblique views along with computer-aided detection (CAD). Synthesized 2D images are generated from the tomosynthesis. Bilateral views of each breast were also performed. FINDINGS: There are scattered areas of fibroglandular density (ACR BI-RADS breast composition Category b). There are no significant masses, abnormal calcifications, or other abnormalities. ULTRASOUND: Bilateral whole breast sonography was performed. FINDINGS: There are no solid masses. There are a few clustered benign cysts in the 1:00 region of the left breast, 2 cm from the nipple. This group of cysts spans approximately 2.2 cm. The individual cysts in this region are all less than 5 mm in size each. There is no focal tenderness over this portion of the breast when the patient is scanned. US/US breast BI limited mamm only IMPRESSION: No mammographic or sonographic signs of malignancy. Incidental, small benign cysts in the 1:00 region of the left breast. Clinical follow-up for the patient's complaint of diffuse bilateral breast pain is advised. ASSESSMENT: BI-RADS BI-RADS 2 - Benign Findings RECOMMENDATION: 1 year F/U Results were provided to the patient at time of visit by the technologist. This patient's information was entered into a reminder system with a target due date for their next mammogram.
== END 2023-07-28 08:42 | disposition home or self-care (01) ==
LOC: HO.MAMMO 08:41
PROVIDERS: PCP Registered Nurse; Visit Provider Registered Nurse
DX: N64.4 Mastodynia (principal)
CPT/HCPCS: 76642; 77062; 77066

== ENCOUNTER → 2023-07-28 09:00 | Outpatient (BNV) | payer MEDICAID, SELFPAY | PROVIDERS: PCP Registered Nurse; Visit Provider Radiology Diagnostic Radiology | DX: N64.4 Mastodynia (principal) | CPT/HCPCS: 76642; 77062; 77066 ==

== ENCOUNTER 2023-08-14 10:19 | Outpatient (AMB) | payer MEDICAID, SELFPAY ==
--- NOTE | 2023-08-14 10:41 | A.OFFVIS_ITS ---
Intake Vital Signs 08/14/23 10:43 Height 5 ft 3 in Weight 183 lb BMI 32.4 BP 118/70 Intake Visit Reasons: US follow up Allergies ampicillin Allergy (Unknown, Verified 08/14/23 10:50) rash Penicillins [PCN] Allergy (Unknown, Verified 08/14/23 10:50) RASH tuberculin, purified protein deriva [TB TEST] Allergy (Unknown, Verified 08/14/23 10:50) UNK Is last menstrual period known: Yes Last menstrual period: 07/25/23 HPI US follow up HPI Details Patient is here to review the ultrasound which was done to explore some of her issues which it turns out she already knew about. She has complex structures and her tubes and a small cyst in 1 ovary that was present along with a thickened lining of the uterus however that was 3 days before the start of her period on June 26. She also had a period in July from July 24 to . She has been trying to get she has a retroverted uterus she has fibroids that were noted in this ultrasound. In discussing that she should have follow-up with Dr. Meneses for the next step to see what is going on with her tubes and discussed the fibroids. The patient stated that she already knew about these things and that she had been to [facility] reproductive endocrinology and they had done the test to see if the dye would passed through her tubes and it did not pass. She said that they told her that the only thing to do is tying her tubes. [facility] she is [facility] . She said that they told her there is nothing to do. She does think that there is a surgery to change her retroverted uterus to an anteverted uterus because her friend in [place] had that surgery. And she is interested in that. She says ever since she has been with this partner sex has been more uncomfortable. She does have children. She says her periods are not heavy so if she had fibroids they would be very heavy so she is finding that fact in conflict [facility] Medical History (Updated 08/14/23 @ 11:21 by Paula Downing CNM) Bladder wall thickening Chronic pelvic pain in female Complex cyst of both ovaries Surgical History Hx of cystoscopy History of surgery of head Family History Maternal Grandmother Diabetes Mother Diabetes Social History Household Members Other:: daughter Housing: House Alcohol intake: never Patient Tobacco Use Status: Current everyday Tobacco user Cigarettes Per Day: 3 Sexual orientation: Straight/Heterosexual Gender identity: Female Female Reproductive History Menstrual Age of Menarche: 12 Duration of menses: 6-7 days Date of last menstrual period: 07/25/23 Physical Exam Vital Signs: Last Vital Signs BP 118/70 08/14/23 10:43 BMI result Body Mass Index 32.4 Results Reviewed Results Reviewed: [address] [address] Ultrasound Report Signed Patient: Carolyn Campbell MR#: [id number] : 1985 Acct:[id number] Age/Sex: 37 / F ADM Date: 06/23/23 Loc: HO.US Attending Dr: Paula Downing CNM Ordering Physician: Puala Downing CNM Date of Service: 06/23/23 Procedure(s): US pelvic and transvaginal Accession Number(s): [id number] cc: Paula Downing CNM; Eulalia Tony~ EXAMINATION: US PELVIS CLINICAL INFORMATION: Pelvic pain, ovarian cyst. COMPARISON: Ultrasound pelvis 05/19/2022. TECHNIQUE: Ultrasound of the pelvis is performed using both transabdominal and transvaginal transducers along with Doppler. Transvaginal imaging is performed due to inadequate visualization transabdominally. FINDINGS: Uterus: The uterus is retroverted, retroflexed and measures 8.3 x 4.5 x 5.7 cm. 1.6 x 1.2 x 1.2 cm fibroid was not identified on the prior exam. 2.3 x 2.4 x 2.0 cm fibroid previously measured 1.3 x 0.2 x 0.4 cm. Small amount of free fluid in the pelvis. Endometrial thickness is 1.2 cm. Small nabothian cysts in the cervix. Right ovary is seen only on transabdominal ultrasound images and measures 2.2 x 1.7 x 2.4 cm, volume 4.7 mL. Visualization of the right ovary is limited. 5.5 x 4.9 x 5.6 cm right adnexal tubular/complex cystic, septated structure redemonstrated adjacent to the right ovary, previously 6.9 x 3.9 x 5.7 cm. Left ovary measures 3.2 x 2.1 x 2.5 cm, volume 8.8 mL. Mildly complex 1.9 x 0.7 x 1.5 cm left ovarian cyst with a few low-level internal echoes was not previously identified. Correlation with menstrual history recommended to determine further management, although this is likely physiologic and, in this case, in a premenopausal patient, there would be no indication for followup imaging. Left adnexal tubular/complex cystic, septated structure measures 5.4 x 5.2 x 4.6 cm, previously 5.3 x 5.3 x 3.6 cm. US/US pelvic and transvaginal IMPRESSION: 1. Persistent large bilateral adnexal tubular/complex cystic structures. Differential considerations include hydrosalpinx or paraovarian/ovarian cyst. MRI could be considered for further evaluation. 2. Fibroid uterus. 3. Endometrial thickness is 1.2 cm. 4. Limited visualization of the right ovary. 5. Mildly complex 1.9 cm left ovarian cyst was not previously identified. Recommend gynecologic consultation and correlation with menstrual history to determine further management. Dictated By: Zuleyma Schmitt MD Signed By: <Electronically signed by Zuleyma Schmitt MD in OV> 06/24/23 1545 DD/ 1115 Assessment & Plan Assessment & Plan (1) Encounter to discuss test results: Code(s): Z71.2 - Person consulting for explanation of examination or test findings (2) Complex cyst of both ovaries: Comment: Persistent with hydrosalpinx; 08/14/23-patient states she was at [facility] reproductive endocrinology 2021 and they did a hysterosalpingogram but the dye did not pass and they told her there was nothing to be done. Code(s): N83.291 - Other ovarian cyst, right side; N83.292 - Other ovarian cyst, left side (3) Bladder wall thickening: Code(s): N32.89 - Other specified disorders of bladder (4) Dyspareunia in female: Comment: Most likely related to retroverted uterus, previous ultrasound findings appreciated. Code(s): N94.10 - Unspecified dyspareunia (5) Sensation of pressure in bladder area: Code(s): R39.89 - Other symptoms and signs involving the genitourinary system Plan Patient is here to review the ultrasound which was done to explore some of her issues which it turns out she already knew about. She has complex structures and her tubes and a small cyst in 1 ovary that was present along with a thickened lining of the uterus however that was 3 days before the start of her period on June 26. She also had a period in July from July 24 to . She has been trying to get she has a retroverted uterus she has fibroids that were noted in this ultrasound. In discussing that she should have follow-up with Dr. Meneses for the next step to see what is going on with her tubes and discussed the fibroids. The patient stated that she already knew about these things and that she had been to [facility] reproductive endocrinology and they had done the test to see if the dye would passed through her tubes and it did not pass. She said that they told her that the only thing to do is tying her tubes. She has [employer] and she is seeking a . She said that they told her there is nothing to do. She does think that there is a surgery to change her retroverted uterus to an anteverted uterus because her friend in [place] had that surgery. And she is interested in that. She says ever since she has been with this partner sex has been more uncomfortable. She does have children. She says her periods are not heavy so if she had fibroids they would be very heavy so she is finding that fact in conflict She thinks the doctors at [facility] just did not want to do anything I did tell her that IVF is an expensive procedure and most insurances do not cover and [facility] probably does not and that is unfortunately a reality Patient has been seen by other specialties as well including Urology for abdominal issues and there is a note about bladder wall thickening but the patient states she was told to come back in a year. I did tell the patient that I did not think there was a surgery just to change the direction of the uterus but that sometimes when other surgeries are done scar tissue can sometimes alter the position anatomically but usually with other effects as well Coding Level of Care Code Est Pt Level 3 (50875) Diagnoses Encounter to discuss test results Z71.2 Complex cyst of both ovaries N83.291; N83.292 Bladder wall thickening N32.89 Dyspareunia in female N94.10 Sensation of pressure in bladder area R39.89
[2023-08-14 10:43] VITALS: BP 118/70; BMI 32.4
== END 2023-08-14 12:14 | disposition home or self-care (01) ==
PROVIDERS: PCP Registered Nurse; Visit Provider Advanced Practice Midwife
DX: Z71.2 Person consulting for explanation of examination or test findings (principal); N83.291 Other ovarian cyst, right side; N83.292 Other ovarian cyst, left side; N32.89 Other specified disorders of bladder; N94.10 Unspecified dyspareunia; R39.89 Other symptoms and signs involving the genitourinary system
CPT/HCPCS: 99213

== ENCOUNTER → 2023-08-14 10:19 | Outpatient (BNVA) | payer MEDICAID, SELFPAY | PROVIDERS: PCP Registered Nurse; Visit Provider Advanced Practice Midwife | DX: Z71.2 Person consulting for explanation of examination or test findings (principal); N83.291 Other ovarian cyst, right side; N83.292 Other ovarian cyst, left side; N32.89 Other specified disorders of bladder; N94.10 Unspecified dyspareunia; R39.89 Other symptoms and signs involving the genitourinary system | CPT/HCPCS: 99212 ==

== ENCOUNTER 2023-08-21 12:22 | Outpatient (REF) | payer MEDICAID, SELFPAY ==
--- NOTE | ~2023-08-21 | XR_ITS ---
EXAMINATION: XR LUMBOSACRAL SPINE CLINICAL INFORMATION: Lower back pain. COMPARISON: None available. TECHNIQUE: AP and lateral views of the lumbar spine and lateral view of the lumbosacral junction. FINDINGS: Vertebral body heights and alignment are normal. The lower thoracic and lumbar disc spaces are well-maintained. No acute fracture or spondylolisthesis is seen. There is multi-level mild lower thoracic and lumbar spondylosis. The posterior elements are intact. There is facet arthropathy at L5-S1. The paravertebral soft tissues are unremarkable. XR/XR lumbar spine 2-3V IMPRESSION: 1. No acute fracture or spondylolisthesis is seen. 2. The lower thoracic and lumbar disc spaces are well-maintained. 3. There is multi-level mild thoracolumbar spondylosis. 4. There is facet arthropathy at L5-S1.
== END 2023-08-21 12:23 | disposition home or self-care (01) ==
LOC: HO.XRAY 12:22
PROVIDERS: PCP Registered Nurse; Visit Provider Registered Nurse
DX: M54.50 Low back pain, unspecified (principal)
CPT/HCPCS: 72100

== ENCOUNTER 2023-10-12 11:07 | Outpatient (AMB) | payer MEDICAID, SELFPAY ==
--- NOTE | 2023-10-12 11:10 | MHC.OFFVIS ---
Intake Vital Signs 10/12/23 11:17 Height 5 ft 3 in Weight 183 lb BMI 32.4 BP 122/78 Intake Visit Reasons: Consult for thickened lining of uterus Inside Outside Sales Representative Required: Yes Inside Outside Sales Representative Language: Software Tester Name: Tristan [id number] Information Interpreted: non-clinical & clinical Tooth Cutter Contact Wheel: Tooth Cutter Contact Wheel Present (Aidyn) Allergies ampicillin Allergy (Unknown, Verified 10/12/23 11:18) rash Penicillins [PCN] Allergy (Unknown, Verified 10/12/23 11:18) RASH tuberculin, purified protein deriva [TB TEST] Allergy (Unknown, Verified 10/12/23 11:18) UNK Is last menstrual period known: Yes Last menstrual period: 09/18/23 Post menopausal: No Patient : No HPI HPI Comments History of Present Illness Details Presenting referred from Paula Downing CNM regarding abnormal pelvic ultrasound findings. The patient is complaining of 3 year history of pelvic pain no associated vaginal discharge, urinary or GI symptoms. Pelvic ultrasound done in 06/27 showed the following: Uterus: The uterus is retroverted, retroflexed and measures 8.3 x 4.5 x 5.7 cm. 1.6 x 1.2 x 1.2 cm fibroid was not identified on the prior exam. 2.3 x 2.4 x 2.0 cm fibroid previously measured 1.3 x 0.2 x 0.4 cm. Small amount of free fluid in the pelvis. Endometrial thickness is 1.2 cm. Small nabothian cysts in the cervix. Right ovary is seen only on transabdominal ultrasound images and measures 2.2 x 1.7 x 2.4 cm, volume 4.7 mL. Visualization of the right ovary is limited. 5.5 x 4.9 x 5.6 cm right adnexal tubular/complex cystic, septated structure redemonstrated adjacent to the right ovary, previously 6.9 x 3.9 x 5.7 cm. Left ovary measures 3.2 x 2.1 x 2.5 cm, volume 8.8 mL. Mildly complex 1.9 x 0.7 x 1.5 cm left ovarian cyst with a few low-level internal echoes was not previously identified. Correlation with menstrual history recommended to determine further management, although this is likely physiologic and, in this case, in a premenopausal patient, there would be no indication for followup imaging. Left adnexal tubular/complex cystic, septated structure measures 5.4 x 5.2 x 4.6 cm, previously 5.3 x 5.3 x 3.6 cm. GC/CT were done in 05/27 were negative The patient was seen by [facility] for evaluation infertility and was diagnose bilateral hydrosalpinx, according to the patient attempted cannulation of bilateral fallopian tubes failed, the recommendation was for bilateral salpingectomy and infertility treatment, the PD thinking about [facility] Medical History (Updated 10/12/23 @ 11:19 by Don Meneses MD) Bladder wall thickening Chronic pelvic pain in female Complex cyst of both ovaries Surgical History Hx of cystoscopy History of surgery of head Family History Maternal Grandmother Diabetes Mother Diabetes Social History Household Members Other:: daughter Housing: House Alcohol intake: never Patient Tobacco Use Status: Current everyday Tobacco user Cigarettes Per Day: 3 Sexual orientation: Straight/Heterosexual Gender identity: Female Female Reproductive History Menstrual Age of Menarche: 12 Date of last menstrual period: 09/18/23 control method: none Review of Systems Const All systems reviewed & are unremarkable except as noted in HPI and below Physical Exam Vital Signs: Last Vital Signs BP 122/78 10/12/23 11:17 BMI result Body Mass Index 32.4 General: Yes no CVA tenderness External Female Exam: normal external appearance and normal appearance of the urethra Speculum Exam - Vagina: normal appearance of the vagina, normal palpation, no lesions and no masses Speculum Exam - Cervix: normal appearance of the cervix, normal palpation, no lesions, no masses and nontender Bimanual exam- vagina & uterus: normal bimanual exam, normal palpation, uterine size normal, normal palpation, uterine shape normal, No Cervical tenderness present and non-tender Bimanual Exam- Adnexa, other: normal adnexae Back/Spine/Pelvis Back: no CVA tenderness Results AMB Test Urine AMB Test Urine Negative Last Edit by MATHIEU Ledezma on 10/12/23 11:24 Assessment & Plan Assessment & Plan (1) Adnexal mass: Comment: Bilateral adnexal complex structures possible Hydrosalpinx/ paraovarian/complex ovarian cysts Code(s): N94.89 - Other specified conditions associated with female genital organs and menstrual cycle Plan: UPT done in the office was negative Discussed with the patient the finding on ultrasound showing bilateral adnexal structures. Discussed with the patient the Ultrasound findings, the main limitation of transvaginal ultrasonography alone as a diagnostic tool to distinguish benign from malignant masses relates to its lack of specificity and low positive predictive value for cancer. The differential diagnosis discussed with the patient includes the following but not limited to: benign and malignant gynecological and non-gynecological causes. L Will order pelvic MRI and treat accordingly Instructions given the patient to schedule a 2 week follow-up MRI appointment. All questions were answered & the patient verbalized understanding and agreed with the plan. (2) Uterine myoma: Code(s): D25.9 - Leiomyoma of uterus, unspecified Plan: Discussed with the patient the results of the ultrasound and the size of the myomas has increased in size from 2.2 cm in February of 2020 up to 3.4 cm in 01/24. Discussed with the patient risk of myosarcoma and symptoms that are caused by myomas including but not limited to pelvic pain, pressure symptoms, abnormal uterine bleeding. In addition discussed with the patient options of treatment for myomas including: Serial ultrasounds periodically to follow-up on the size of the myoma while targeting the treatment against fibroids related symptoms ( control pills, Mirena IUD, progesterone treatment, GnRH agonist/antagonist) versus surgical treatment including myomectomy or hysterectomy once the patient completes her family. All pros and cons, risks and benefits of all options were discussed with the patient. The patient understands that delay in surgical treatment in case of myosarcoma can affect her prognosis, after further discussion, the patient decided to think about it and get back to us next visit Orders: Orders AMB HCG Urine Test Today Z32.02 - Encounter for test, result negative MR pelvis wo/w con Today N83.299 - Other ovarian cyst, unspecified side Coding Level of Care Code Est Pt Level 3 (35845) Diagnoses Adnexal mass N94.89 Uterine myoma D25.9
[2023-10-12 11:17] VITALS: BP 122/78; BMI 32.4
== END 2023-10-12 11:39 | disposition home or self-care (01) ==
LOC: HO.HWS 11:07
PROVIDERS: PCP Registered Nurse; Visit Provider Obstetrics & Gynecology
DX: N94.89 Other specified conditions associated with female genital organs and menstrual cycle (principal); D25.9 Leiomyoma of uterus, unspecified; Z32.02 Encounter for pregnancy test, result negative
CPT/HCPCS: 99213

== ENCOUNTER → 2023-10-12 11:07 | Outpatient (BNVA) | payer MEDICAID, SELFPAY | PROVIDERS: PCP Registered Nurse; Visit Provider Obstetrics & Gynecology | DX: D25.9 Leiomyoma of uterus, unspecified (principal); N94.89 Other specified conditions associated with female genital organs and menstrual cycle | CPT/HCPCS: 81025; 99212 ==

== ENCOUNTER 2023-11-25 09:50 | Outpatient (REF) | payer MEDICAID, SELFPAY ==
--- NOTE | ~2023-11-25 | MR_ITS ---
EXAMINATION: MRI PELVIS WITH AND WITHOUT CONTRAST CLINICAL INFORMATION: Reason for Exam N83.299 - Other ovarian cyst, unspecified side COMPARISON: CT urogram 07/01/2023 Pelvic ultrasound 06/23/2023 TECHNIQUE: Multiple routine MRI sequences through the pelvis were obtained on a high-field 1.5 Lise MRI before and after the uneventful administration of 8.5 mL of Gadavist gadolinium-based IV contrast. FINDINGS: UTERUS: The uterus is retroverted. The uterus measures 8.1 x 4.2 x 5.3 cm. Junctional zone is preserved. The endometrial stripe measures 4 mm in thickness. Fundal posterior fibroid measures 1.1 x 1.0 x 1.2 cm. Anterior subserosal fibroid measures 2.2 x 2.2 x 2.3 cm. CERVIX: Nabothian cyst. VAGINA: Unremarkable. RIGHT OVARY: The right ovary is unremarkable. Dilated tubular structure in the right adnexa measuring up to 4.0 cm with evidence of T1 hyperintensity. No thick septations or mural nodules or abnormal enhancement. LEFT OVARY: The left ovary is unremarkable. Dilated tubular structure in the left adnexa measuring up to 3.1 cm with evidence of T1 hyperintensity. No thick septations or mural nodules or abnormal enhancement. KIDNEYS: Two normally positioned kidneys are seen. No hydronephrosis. BLADDER: Decompressed. PELVIC FREE FLUID: Small ascites. LYMPH NODES: No pathologically enlarged lymph nodes. MR/MR pelvis wo/w con IMPRESSION: Pedunculated anterior subserosal fibroid measures 2.3 x 2.3 x 2.3 cm. Bilateral hematosalpinx.
[2023-11-25] MEDS: gadobutroL 10 ML VIAL IVPUSH (10:39)
== END 2023-11-25 09:51 | disposition home or self-care (01) ==
LOC: HO.MRI 09:50
PROVIDERS: PCP Registered Nurse; Visit Provider Obstetrics & Gynecology
DX: N83.209 Unspecified ovarian cyst, unspecified side (principal)
CPT/HCPCS: 72197; A9585

== ENCOUNTER 2023-12-15 14:40 | Outpatient (REF) | payer MEDICAID, SELFPAY ==
[2023-12-15 16:33] LABS: Mean Corpuscular HGB Conc 32.5 g/dl (31.0-35.0); Red Cell Distribution Width 13.8 % (11.0-16.0); SCAN SMEAR FLAG 1
[2023-12-15 16:35] LABS: Basophils Absolute Auto 0.1 X10*3/uL (0.0-0.2); Basophils Percent Auto 0.8 % (0-2); Eosinophils Absolute Auto 0.2 X10*3/uL (0.0-0.4); Eosinophils Percent Auto 1.6 % (0-4); Hematocrit 41.8 % (37.0-47.0); Hemoglobin 13.6 g/dl (12.0-16.0); Imm Gran Abs Auto 0.04 X10*3/uL (0.00-0.03); Imm Gran Pct Auto 0.4 % (0.0-0.4); Lymphocytes Absolute Auto 2.8 X10*3/uL (1.2-4.9); MANUAL DIFF FLAG SCAN; Mean Corpuscular Hemoglobin 28.6 pg (27.0-33.0); Mean Corpuscular Volume 87.8 fL (80.0-98.0); Mean Platelet Volume 13.2 fL (9.4-12.3); Monocytes Absolute Auto 0.5 X10*3/uL (0.1-1.2); Monocytes Percent Auto 5.2 % (2-11); Neutrophils Absolute Auto 6.6 x10*3/uL (2.0-8.3); Platelet Count 286 X10*3/uL (160-400); Red Blood Count 4.76 X10*6/uL (4.20-5.50); White Blood Count 10.2 X10*3/uL (4.8-10.8)
[2023-12-15 16:39] LABS: PLT ABN DIST 1
[2023-12-15 17:16] LABS: SLIDE REVIEW VERIFIED
[2023-12-15 17:36] LABS: Alanine Aminotransferase 19 U/L (0-31); Albumin Level 4.7 g/dL (3.5-5.0); Alkaline Phosphatase 101 U/L (39-117); Anion Gap 9 (12-20); Aspartate Amino Transferase 20 U/L (5-31); Bilirubin Total 0.2 mg/dL (0.0-1.0); Blood Urea Nitrogen 9 mg/dL (9-16); Carbon Dioxide 28 mmol/L (22-29); Chloride 106 mmol/L (96-108); Cholesterol 213 mg/dL (<200); Estimated Glomerular Filt Rate > 60; Glucose Random 101 mg/dL (60-115); HDL Cholesterol 42 mg/dL (>40); LDL Cholesterol Calculated 132 mg/dL (<100); Potassium 3.9 mmol/L (3.3-5.1); Sodium 139 mmol/L (135-145); Total Protein 8.1 g/dL (6.5-8.0); Triglycerides 198 mg/dL (<150)
[2023-12-16 04:52] LABS: HIV AB/AG Nonreactive (Nonreactive); HIV Num 1 0.05 S/CO (0.00-0.99); ~HepC Num1 0.14 S/CO (0.00-0.79); ~Hepatitis C Antibody Nonreactive (Nonreactive)
[2023-12-16 05:48] LABS: CT PCR NOT DETECTED (Not Detect.); NG PCR NOT DETECTED (Not Detect.)
[2023-12-17 07:39] LABS: RPR Rapid Plasma Reagin NON-REACTIVE (NON-REACTIVE)
== END 2023-12-15 14:41 | disposition home or self-care (01) ==
LOC: HO.HHCL 14:40
PROVIDERS: Visit Provider Nurse Practitioner Family
DX: Z00.00 Encounter for general adult medical examination without abnormal findings (principal); R10.84 Generalized abdominal pain; N64.4 Mastodynia
CPT/HCPCS: 0353U; 36415; 80053; 80061; 85025; 86592; 86803; 87389

== ENCOUNTER 2023-12-16 13:52 | Outpatient (REF) | payer MEDICAID, SELFPAY | END 2023-12-16 13:53 | disposition home or self-care (01) | LOC: HO.HHCLNP 13:52 | PROVIDERS: Visit Provider Nurse Practitioner Family | DX: R10.84 Generalized abdominal pain (principal) | CPT/HCPCS: 87338 ==

== ENCOUNTER 2023-12-22 10:26 | Outpatient (AMB) | payer MEDICAID, SELFPAY ==
--- NOTE | 2023-12-22 10:27 | MHC.OFFVIS ---
Intake Vital Signs 12/22/23 10:29 Height 5 ft 3 in BP 110/68 Intake Visit Reasons: MRI Results Banquet Supervisor Required: Yes Banquet Supervisor Language: Forensic Engineer Name: Harleen MURDOCK Information Interpreted: non-clinical & clinical Accompanied by: Self / Same As Patient Allergies ampicillin Allergy (Unknown, Verified 12/22/23 10:29) rash Penicillins [PCN] Allergy (Unknown, Verified 12/22/23 10:29) RASH tuberculin, purified protein deriva [TB TEST] Allergy (Unknown, Verified 12/22/23 10:29) UNK Is last menstrual period known: Yes Last menstrual period: 11/23/23 HPI HPI Comments History of Present Illness Details Presenting for follow-up after pelvic MRI. Doing well with no complaints. Pelvic MRI showed the following: IMPRESSION: Pedunculated anterior subserosal fibroid measures 2.3 x 2.3 x 2.3 cm. Bilateral hematosalpinx. The patient does not have any pelvic pain abnormal uterine bleeding or pelvic pressure PFSH Medical History Bladder wall thickening Chronic pelvic pain in female Complex cyst of both ovaries Surgical History Hx of cystoscopy History of surgery of head Family History Maternal Grandmother Diabetes Mother Diabetes Social History Household Members Other:: daughter Housing: House Alcohol intake: never Patient Tobacco Use Status: Current everyday Tobacco user Cigarettes Per Day: 3 Sexual orientation: Straight/Heterosexual Gender identity: Female Female Reproductive History Menstrual Age of Menarche: 12 Date of last menstrual period: 11/23/23 Review of Systems Const All systems reviewed & are unremarkable except as noted in HPI and below Reports as per HPI and Reports no additional complaints GI Reports no additional complaints Reports no additional complaints Physical Exam Vital Signs: Last Vital Signs BP 110/68 12/22/23 10:29 Assessment & Plan Assessment & Plan (1) Uterine myoma: Code(s): D25.9 - Leiomyoma of uterus, unspecified Plan: Discussed with the patient the findings on pelvic ultrasound & the risk of myosarcoma; discussed with the patient the options of treatment including expectant management versus hysterectomy; the pros and cons, risks benefits of each approach were discussed with the patient including the fact that in cases of myosarcoma, surgical treatment can lead to early diagnosis and positively affects the prognosis; after further discussion, the patient decided to proceed with expectant management. Will repeat pelvic ultrasound periodically. Instructions given to patient to call in case any of the following occurs: pressure symptoms, abnormal uterine bleeding, pelvic pain; and to schedule a future office follow-up appointment for reassessment and to order a repeat ultrasound . All questions answered, the patient verbalized understanding and agreed with the plan . (2) Hydrosalpinx: Comment: Bilateral Code(s): N70.11 - Chronic salpingitis Plan: Discussed with the patient the finding on MRI showing bilateral hydrosalpinx, differential diagnosis discussed with the patient including adhesions, history of PID or other, instructions given the patient to call in case of fever above 100.4, pelvic pain then will treat accordingly. All questions answered, the patient verbalized understanding. Coding Level of Care Code Est Pt Level 3 (02514) Diagnoses Uterine myoma D25.9 Hydrosalpinx N70.11
[2023-12-22 10:29] VITALS: BP 110/68
== END 2023-12-22 16:17 | disposition home or self-care (01) ==
LOC: HO.HWS 10:26
PROVIDERS: PCP Registered Nurse; Visit Provider Obstetrics & Gynecology
DX: D25.9 Leiomyoma of uterus, unspecified (principal); N70.11 Chronic salpingitis
CPT/HCPCS: 99213

== ENCOUNTER → 2023-12-22 10:26 | Outpatient (BNVA) | payer MEDICAID, SELFPAY | PROVIDERS: PCP Registered Nurse; Visit Provider Obstetrics & Gynecology | DX: D25.9 Leiomyoma of uterus, unspecified (principal); N70.11 Chronic salpingitis | CPT/HCPCS: 99212 ==

== ENCOUNTER 2023-12-23 10:17 | Outpatient (AMB) | payer MEDICAID, SELFPAY ==
--- NOTE | 2023-12-23 07:16 | MHC.OFFVIS ---
Intake Vital Signs 12/23/23 10:20 Height 5 ft 3 in Weight 183 lb BMI 32.4 BP 120/82 Blood Pressure Location Lt brachial Position Sitting Respiration 12 Pulse 88 Pulse Source Pulse Oximeter Pulse Oximetry (%) 99 Oxygen Delivery Method Room Air Intake Visit Reasons: Spondylosis Thoracolumbar Region Calender Roll Operator Required: Yes Calender Roll Operator Name: Senia Allergies ampicillin Allergy (Unknown, Verified 12/23/23 10:22) rash Penicillins [PCN] Allergy (Unknown, Verified 12/23/23 10:22) RASH tuberculin, purified protein deriva [TB TEST] Allergy (Unknown, Verified 12/23/23 10:22) UNK Medication List - Last Reconciled 12/23/23 by Kenisha Rawls LPN cholecalciferol (vitamin D3) 50 mcg PO DAILY [id number] fum-folic ac-om3 [id number] mg-mcg-mg (One Daily ) pkgs PO HPI Spondylosis Thoracolumbar Region HPI Details A certified shirt trimmer was present during the visit. 38-year-old female who presents today to the office for evaluation of low back pain. She presents with more than 3 month history of low back pain. She had an x-ray that showed lumbar facet arthritis around L5-S1. She was referred to physical therapy, which did not help her. She describes the pain as a sharp stabbing pain, greater than 7/10 in intensity. She denies any injury or trauma, bladder dysfunction or paresthesia. Pain is mostly localized to the right lower back area. It does not radiate down her lower extremities. History is notable for 1 vaginal delivery. [facility] Medical History Bladder wall thickening Chronic pelvic pain in female Complex cyst of both ovaries Surgical History Hx of cystoscopy History of surgery of head Family History Maternal Grandmother Diabetes Mother Diabetes Social History Household Members Other:: daughter Housing: House Alcohol intake: never Patient Tobacco Use Status: Current everyday Tobacco user Cigarettes Per Day: 3 Sexual orientation: Straight/Heterosexual Gender identity: Female Female Reproductive History Menstrual Age of Menarche: 12 Review of Systems Const All systems reviewed & are unremarkable except as noted in HPI and below Physical Exam Vital Signs: Last Vital Signs Pulse 88 12/23/23 10:20 Resp 12 12/23/23 10:20 BP 120/82 12/23/23 10:20 Pulse Ox 99 12/23/23 10:20 Oxygen Delivery Method Room Air 12/23/23 10:20 BMI result Body Mass Index 32.4 On exam today: Appears afebrile. Alert and oriented. Mood and affect appropriate. Follows and participates in conversation appropriately. Respiratory effort is unlabored. Able to transition from sit to stand unassisted. Ambulates with bilaterally normal heel strike and toe off. Able to stand and walk on toes and heels. There is tenderness to superficial as well as deep palpation overlying the right sacroiliac joint. No significant tenderness overlying the left sacroiliac joint. DERIK, SI joint thrust and SI joint compression, Gaenslen's and SI joint distraction are all positive. Results Reviewed Results Reviewed: 11/25/23: MRI PELVIS WITH AND WITHOUT CONTRAST FINDINGS: Personal review of the pelvic MRI shows high intensity signal within the right SI joint cavity. 08/21/23: XR LUMBOSACRAL SPINE FINDINGS: Vertebral body heights and alignment are normal. The lower thoracic and lumbar disc spaces are well-maintained. No acute fracture or spondylolisthesis is seen. There is multi-level mild lower thoracic and lumbar spondylosis. The posterior elements are intact. There is facet arthropathy at L5-S1. The paravertebral soft tissues are unremarkable. IMPRESSION: 1. No acute fracture or spondylolisthesis is seen. 2. The lower thoracic and lumbar disc spaces are well-maintained. 3. There is multi-level mild thoracolumbar spondylosis. 4. There is facet arthropathy at L5-S1. Assessment & Plan Assessment & Plan (1) Sacroiliac joint dysfunction: Code(s): M53.3 - Sacrococcygeal disorders, not elsewhere classified Plan I recommended trying an SI joint compression belt. We will plan for a diagnostic SI join injection with local anesthetic. If she has a positive response to the diagnostic injection we will plan for a steroid injection 2-3 weeks later. Recommended continuing combination of bracing and injection therapy at this time. Scribed for Dr. Buchanan by Jackeline Fish, nuclear medicine medical director, on 12/23/2023. I, Dr. Buchanan, have personally reviewed and agree with the information entered by the scribe. Coding Level of Care Code New Pt Level 4 (47039) Diagnoses Sacroiliac joint dysfunction M53.3
[2023-12-23 10:20] VITALS: BP 120/82; PULSE 88; RESP 12; O2SAT 99; BMI 32.4
== END 2023-12-23 10:40 | disposition home or self-care (01) ==
LOC: HO.PMC 10:17
PROVIDERS: PCP Registered Nurse; Referring Provider Registered Nurse; Visit Provider Internal Medicine
DX: M53.3 Sacrococcygeal disorders, not elsewhere classified (principal)
CPT/HCPCS: 99204

== ENCOUNTER → 2023-12-23 10:17 | Outpatient (BNVA) | payer MEDICAID, SELFPAY | PROVIDERS: PCP Registered Nurse; Referring Provider Registered Nurse; Visit Provider Internal Medicine | DX: M47.815 Spondylosis without myelopathy or radiculopathy, thoracolumbar region (principal); M53.3 Sacrococcygeal disorders, not elsewhere classified | CPT/HCPCS: 99202 ==

== ENCOUNTER 2024-01-05 12:28 | Outpatient (REF) | payer MEDICAID, SELFPAY ==
[2024-01-05 19:26] LABS: Anion Gap 12 (12-20); Blood Urea Nitrogen 10 mg/dL (9-16); Calcium 9.6 mg/dL (8.4-10.2); Carbon Dioxide 24 mmol/L (22-29); Chloride 107 mmol/L (96-108); Estimated Glomerular Filt Rate > 60; Glucose Random 92 mg/dL (60-115); Sodium 139 mmol/L (135-145)
[2024-01-08 08:04] LABS: TS Negative Control Passed; TS Panel A 38; TS Panel B 32; TS Positive Control Passed; TSpotTB Positive (Negative)
== END 2024-01-05 12:29 | disposition home or self-care (01) ==
LOC: HO.HHCL 12:28
PROVIDERS: Visit Provider Nurse Practitioner Family
DX: Z00.00 Encounter for general adult medical examination without abnormal findings (principal); N64.4 Mastodynia; Z11.1 Encounter for screening for respiratory tuberculosis
CPT/HCPCS: 36415; 80048; 86481

== ENCOUNTER 2024-01-11 14:24 | Outpatient (REF) | payer MEDICAID, SELFPAY | END 2024-01-11 14:25 | disposition home or self-care (01) | LOC: HO.HHCLNP 14:24 | PROVIDERS: Visit Provider Nurse Practitioner Family | DX: A04.8 Other specified bacterial intestinal infections (principal) | CPT/HCPCS: 87338 ==

== ENCOUNTER 2024-01-19 13:07 | Outpatient (REF) | payer MEDICAID, SELFPAY ==
--- NOTE | ~2024-01-19 | XR_ITS ---
EXAMINATION: XR CHEST CLINICAL INFORMATION: Positive T Spot, high risk of TB COMPARISON: None available. TECHNIQUE: 2 views of the chest were obtained. FINDINGS: No significant abnormality is noted involving the heart, lungs, mediastinum, bony thorax or soft tissues. XR/XR chest 2V IMPRESSION: Unremarkable examination.
== END 2024-01-19 13:08 | disposition home or self-care (01) ==
LOC: HO.HHCX 13:07
PROVIDERS: Visit Provider Nurse Practitioner Family
DX: Z91.89 Other specified personal risk factors, not elsewhere classified (principal)
CPT/HCPCS: 71046

== ENCOUNTER 2024-02-11 06:15 | Outpatient (REF) | payer MEDICAID, SELFPAY | END 2024-02-11 06:16 | disposition home or self-care (01) | LOC: CF 06:15 | PROVIDERS: Visit Provider Internal Medicine | DX: Z13.89 Encounter for screening for other disorder (principal) ==

== ENCOUNTER 2024-02-22 14:30 | Outpatient (REF) | payer MEDICAID, SELFPAY ==
[2024-02-23 08:59] LABS: Bacterial Vaginosis PCR POSITIVE (Negative); Candida Group PCR DETECTED (Not Detect); Candida glab krusei PCR NOT DETECTED (Not Detect); Trichomonas vaginalis PCR NOT DETECTED (Not Detect)
[2024-02-23 10:23] LABS: CT PCR NOT DETECTED (Not Detect.); NG PCR NOT DETECTED (Not Detect.)
== END 2024-02-22 14:31 | disposition home or self-care (01) ==
LOC: HO.CHCLNP 14:30
PROVIDERS: Visit Provider Registered Nurse
DX: N89.8 Other specified noninflammatory disorders of vagina (principal)
CPT/HCPCS: 0352U; 0353U

== ENCOUNTER 2024-02-23 09:55 | Outpatient (REF) | payer MEDICAID, SELFPAY | END 2024-02-23 09:56 | disposition home or self-care (01) | LOC: HO.CHCLNP 09:55 | PROVIDERS: Visit Provider Registered Nurse | DX: A04.8 Other specified bacterial intestinal infections (principal) | CPT/HCPCS: 87338 ==

== ENCOUNTER 2024-02-25 06:07 | Outpatient (REF) | payer MEDICAID, SELFPAY ==
--- NOTE | ~2024-02-25 | FL_ITS ---
EXAMINATION: XR FLUOROSCOPY WITH IMAGES CLINICAL INFORMATION: Sacrococcygeal disorders. COMPARISON: None available. TECHNIQUE: Fluoroscopy Supervised By: Dr. Sergio Buchanan. Fluoroscopy Time: 0.1 minute. Cumulative Dose: 1.38 mGy. DAP: 0.32979 Gycm2. Images: 2. FINDINGS: Intraoperative fluoroscopy and spot films were performed during a procedure in the OR. A needle is seen overlying the region of the right SI joint. Please see Dr. Sergio Buchanan's report for complete details. FL/FL guidance in treatment room IMPRESSION: Intraoperative fluoroscopy and spot films were obtained. Please see Dr. Sergio Buchanan's report for complete details.
== END 2024-02-25 06:08 | disposition home or self-care (01) ==
LOC: CF 06:07
PROVIDERS: Visit Provider Internal Medicine
DX: M53.3 Sacrococcygeal disorders, not elsewhere classified (principal)
CPT/HCPCS: 27096; J2795; Q9967

== ENCOUNTER 2024-02-25 07:39 | Outpatient (AMB) | payer MEDICAID, SELFPAY ==
--- NOTE | 2024-02-25 08:08 | A.OFFVIS_ITS ---
Vital Signs 02/25/24 08:52 02/25/24 08:53 Height 5 ft 3 in Weight 183 lb BMI 32.4 BP 116/68 122/78 Blood Pressure Location Lt brachial Lt brachial Position Sitting Sitting Respiration 18 18 Pulse 64 68 Pulse Source Pulse Oximeter Pulse Oximeter Pulse Oximetry (%) 98 96 Oxygen Delivery Method Room Air Room Air Comment Pre-Op Post-Op Intake Visit Reasons: RIGHT DIAGNOSTIC SIJ INJECTION Allergies ampicillin Allergy (Unknown, Verified 12/23/23 10:22) rash Penicillins [PCN] Allergy (Unknown, Verified 12/23/23 10:22) RASH tuberculin, purified protein deriva [TB TEST] Allergy (Unknown, Verified 12/23/23 10:22) UNK HPI HPI RIGHT DIAGNOSTIC SIJ INJECTION: Details: Patient presents for scheduled procedure. Denies any recent cough, cold, infection, fever or other significant changes in medical history since last office visit. [facility] Medical History Bladder wall thickening Chronic pelvic pain in female Complex cyst of both ovaries Surgical History Hx of cystoscopy History of surgery of head Family History Maternal Grandmother Diabetes Mother Diabetes Social History Household Members Other:: daughter Housing: House Alcohol intake: never Patient Tobacco Use Status: Current everyday Tobacco user Cigarettes Per Day: 3 Sexual orientation: Straight/Heterosexual Gender identity: Female Female Reproductive History Menstrual Age of Menarche: 12 Physical Exam Vital Signs: Last Vital Signs Pulse 68 02/25/24 08:53 Resp 18 02/25/24 08:53 BP 122/78 02/25/24 08:53 Pulse Ox 96 02/25/24 08:53 Oxygen Delivery Method Room Air 02/25/24 08:53 BMI result Body Mass Index 32.4 Office Procedures Joint Injection/Drain Joint Injection/Drain Details: Diagnostic Sacroiliac Joint Injection, Right The procedure, its benefits, and its risks were explained and written informed consent was obtained from the patient. Immediately prior to starting the procedure, a time-out safety check was conducted. The patient's identification, procedure name, procedure site, and procedure laterality were confirmed with the patient. ? Patient was placed prone on the fluoroscopy table and the lumbosacral area was prepped using ChloraPrep and draped with sterile drapein standard fashion. The C-arm was rotated in a contralateral oblique fashion until the medial border of the iliac crest no longer foreshadowed the posterior sacroiliac joint line. The skin and subcutaneous tissue was anesthetized using 1 mL of 0.75% plain lidocaine with 1.5-inch 25-gauge needle in the middle region of the joint line.? A 3.5-inch 22-gauge spinal needle with small bend on the tip was slowly advanced towards the joint line, coaxial to the x-ray beam. Once bony content was obtained, the needle was easily slid into the intra-articular space.? Intra- articular needle position was confirmed using lateral fluoroscopy.? A total volume of 2.5mL of solution 0.5% ropivacaine was injected intra-articularly. The stylet was reinserted and needle was removed. The patient tolerated the procedure well. Patient denied any lower extremity weakness or numbness. Patient was observed for 30 min and was discharged after fulfilling the standard discharge criteria. Coding 70732 - Sacroiliac Procedure code (CPT) selection complete Assessment & Plan Assessment & Plan (1) Sacroiliac joint dysfunction: Code(s): M53.3 - Sacrococcygeal disorders, not elsewhere classified Category: Medical Plan Patient is status post right diagnostic sacroiliac joint injection. Patient tolerated procedure well and was discharged home in stable condition with discharge instructions. All questions were answered. We will follow-up via telephone or in clinic to assess response to therapy. A follow-up appointment was made during today's visit. Orders: Orders FL guidance in treatment room Today M53.3 - Sacrococcygeal disorders, not elsewhere classified Coding Level of Care Code Procedure Only Diagnoses Sacroiliac joint dysfunction M53.3 CPT Codes Coding - Joint 9: 42278 - Sacroiliac ([id number])
[2024-02-25 08:52] VITALS: BP 116/68; PULSE 64; RESP 18; O2SAT 98; BMI 32.4
[2024-02-25 08:53] VITALS: BP 122/78; PULSE 68; RESP 18; O2SAT 96
== END 2024-02-25 08:57 | disposition home or self-care (01) ==
LOC: HO.PMCPRC 07:39
PROVIDERS: PCP Registered Nurse; Visit Provider Internal Medicine
DX: M53.3 Sacrococcygeal disorders, not elsewhere classified (principal)
CPT/HCPCS: 27096

== ENCOUNTER 2024-02-26 09:49 | Outpatient (AMB) | payer MEDICAID, SELFPAY ==
--- NOTE | 2024-02-26 09:52 | MHC.OFFVIS ---
Vital Signs 02/26/24 09:53 Height 5 ft 3 in Weight 174 lb BMI 30.8 BP 132/80 Blood Pressure Location Rt brachial Position Sitting Respiration 14 Pulse 62 Pulse Source Pulse Oximeter Pulse Oximetry (%) 100 Oxygen Delivery Method Room Air Intake Visit Reasons: RIGHT DIAGNOSTIC SIJ INJECTION Ornamental Metal Fabricator Apprentice Required: Yes Ornamental Metal Fabricator Apprentice Name: Senia #[id number] Allergies ampicillin Allergy (Unknown, Verified 02/26/24 09:55) rash Penicillins [PCN] Allergy (Unknown, Verified 02/26/24 09:55) RASH tuberculin, purified protein deriva [TB TEST] Allergy (Unknown, Verified 02/26/24 09:55) UNK Medication List - Last Reconciled 02/26/24 by Kenisha Rawls LPN cholecalciferol (vitamin D3) 50 mcg PO DAILY [id number] fum-folic ac-om3 [id number] mg-mcg-mg (One Daily ) pkgs PO HPI HPI RIGHT DIAGNOSTIC SIJ INJECTION: Details: 38-year-old female who presents today to the office for a right diagnostic SIJ injection. A certified assistant store manager operations was present during the visit. The patient reports 50% relief following the procedure. She has not started using the compression belts yet. Past procedures 02/25/24: Diagnostic Sacroiliac Joint Injection, Right: 50% relief. [facility] Medical History Bladder wall thickening Chronic pelvic pain in female Complex cyst of both ovaries Surgical History Hx of cystoscopy History of surgery of head Family History Maternal Grandmother Diabetes Mother Diabetes Social History Household Members Other:: daughter Housing: House Alcohol intake: never Patient Tobacco Use Status: Current everyday Tobacco user Cigarettes Per Day: 3 Sexual orientation: Straight/Heterosexual Gender identity: Female Female Reproductive History Menstrual Age of Menarche: 12 Review of Systems Const All systems reviewed & are unremarkable except as noted in HPI and below Physical Exam Vital Signs: Last Vital Signs Pulse 62 02/26/24 09:53 Resp 14 02/26/24 09:53 BP 132/80 02/26/24 09:53 Pulse Ox 100 02/26/24 09:53 Oxygen Delivery Method Room Air 02/26/24 09:53 BMI result Body Mass Index 30.8 General: Appears afebrile. Alert and oriented. Mood and affect appropriate. Follows and participates in conversation appropriately. Respiratory effort is unlabored. Able to transition from sit to stand unassisted. Ambulates with bilaterally normal heel strike and toe off. Results Reviewed Results Reviewed: No imaging is available for review. Assessment & Plan Assessment & Plan (1) Sacroiliac joint dysfunction: Code(s): M53.3 - Sacrococcygeal disorders, not elsewhere classified Category: Medical Plan Will schedule her for a right therapeutic sacroiliac joint injection. Discussed the risks and benefits of the procedure with the patient in detail. All questions were answered. The patient is on board with the plan. Justification for interventional therapy: ? Patient with average pain > 6/10 ? Patient unable to tolerate physical therapy due to pain. ? Diagnostic injection provided 50% relief . Patient has a good understanding of their pain condition and has appropriate mental and social support Scribed for Dr. Buchanan by Rafat Walter, quality engineer medical device, on 02/26/2024. I, Dr. Buchanan, have personally reviewed and agree with the information entered by the scribe. Coding Level of Care Code Est Pt Level 3 (84957) Diagnoses Sacroiliac joint dysfunction M53.3
[2024-02-26 09:53] VITALS: BP 132/80; PULSE 62; RESP 14; O2SAT 100; BMI 30.8
== END 2024-02-26 10:24 | disposition home or self-care (01) ==
PROVIDERS: PCP Registered Nurse; Visit Provider Internal Medicine
DX: M53.3 Sacrococcygeal disorders, not elsewhere classified (principal)
CPT/HCPCS: 99213

== ENCOUNTER → 2024-02-26 09:49 | Outpatient (BNVA) | payer MEDICAID, SELFPAY | PROVIDERS: PCP Registered Nurse; Visit Provider Internal Medicine | DX: M53.3 Sacrococcygeal disorders, not elsewhere classified (principal) | CPT/HCPCS: 99212 ==

== ENCOUNTER 2024-03-07 11:21 | Outpatient (REF) | payer MEDICAID, SELFPAY | END 2024-03-07 11:22 | disposition home or self-care (01) | LOC: HO.LNP 11:21 | PROVIDERS: PCP Registered Nurse; Visit Provider Obstetrics & Gynecology | DX: N93.9 Abnormal uterine and vaginal bleeding, unspecified (principal) | CPT/HCPCS: 81025; 99212 ==

== ENCOUNTER 2024-03-07 11:21 | Outpatient (AMB) | payer MEDICAID, SELFPAY ==
[2024-03-07 11:22] VITALS: BP 114/70; BMI 30.8
--- NOTE | 2024-03-07 11:22 | MHC.OFFVIS ---
Vital Signs 03/07/24 11:22 Height 5 ft 3 in Weight 174 lb BMI 30.8 BP 114/70 Blood Pressure Location Lt brachial Position Sitting Intake Visit Reasons: AUB Allergies ampicillin Allergy (Unknown, Verified 03/07/24 11:27) rash Penicillins [PCN] Allergy (Unknown, Verified 03/07/24 11:27) RASH tuberculin, purified protein deriva [TB TEST] Allergy (Unknown, Verified 03/07/24 11:27) UNK HPI Comments Details: Presenting complaining of irregular menstrual cycles over the last few months. Last co testing was in 05/26 was negative Last mammogram was in 07/27 was BI-RADS 2 [facility] Medical History Bladder wall thickening Chronic pelvic pain in female Complex cyst of both ovaries Surgical History Hx of cystoscopy History of surgery of head Family History Maternal Grandmother Diabetes Mother Diabetes Social History Household Members Other:: daughter Housing: House Alcohol intake: never Patient Tobacco Use Status: Current everyday Tobacco user Cigarettes Per Day: 3 Sexual orientation: Straight/Heterosexual Gender identity: Female Female Reproductive History Menstrual Age of Menarche: 12 Review of Systems Const All systems reviewed & are unremarkable except as noted in HPI and below Physical Exam Vital Signs: Last Vital Signs BP 114/70 03/07/24 11:22 BMI result Body Mass Index 30.8 General: Yes no CVA tenderness External Female Exam: normal external appearance and normal appearance of the urethra Speculum Exam - Vagina: normal appearance of the vagina, normal palpation, no lesions and no masses Speculum Exam - Cervix: normal appearance of the cervix, normal palpation, no lesions, no masses and nontender Bimanual exam- vagina & uterus: normal bimanual exam, normal palpation, uterine size normal, normal palpation, uterine shape normal, No Cervical tenderness present and non-tender Bimanual Exam- Adnexa, other: normal adnexae Back/Spine/Pelvis Back: no CVA tenderness Results AMB Test Urine AMB Test Urine Negative Last Edit by Yulisa Landis CMA on 03/07/24 11:28 Results Reviewed Results Reviewed: Laboratory Last Values Tst Clinic Negative 03/07/24 11:28 Assessment & Plan Assessment & Plan (1) Abnormal uterine bleeding: Code(s): N93.9 - Abnormal uterine and vaginal bleeding, unspecified Category: Medical Plan: GC and chlamydia taken CBC, TSH, prolactin, HCG, and pelvic ultrasound ordered. Discussed with the patient the different causes of abnormal bleeding including thyroid disorders, uterine and ovarian pathology, endometrial hyperplasia, carcinoma and other potential causes. Discussed with the patient the work up including CBC (to r/o anemia), TSH, prolactin, pelvic Ultrasound, endometrial biopsy to r/o endometrial pathology. All questions answered and the patient verbalized understanding. Instructed the patient to schedule an appointment for an endometrial biopsy in 2 weeks. Orders: Orders TSH reflex Free T4 Today N93.9 - Abnormal uterine and vaginal bleeding, unspecified Complete Blood Count no Diff Today N93.9 - Abnormal uterine and vaginal bleeding, unspecified US pelvic and transvaginal Today N93.9 - Abnormal uterine and vaginal bleeding, unspecified CT NG by PCR Today N93.9 - Abnormal uterine and vaginal bleeding, unspecified AMB HCG Urine Test Today Z32.02 - Encounter for test, result negative Prolactin Today N93.9 - Abnormal uterine and vaginal bleeding, unspecified HCG Quantitative Today N93.9 - Abnormal uterine and vaginal bleeding, unspecified Coding Level of Care Code Est Pt Level 3 (89511) Diagnoses Abnormal uterine bleeding N93.9
== END 2024-03-07 11:47 | disposition home or self-care (01) ==
PROVIDERS: PCP Registered Nurse; Referring Provider Registered Nurse; Visit Provider Obstetrics & Gynecology
DX: N93.9 Abnormal uterine and vaginal bleeding, unspecified (principal); Z32.02 Encounter for pregnancy test, result negative
CPT/HCPCS: 99213

== ENCOUNTER 2024-03-07 11:49 | Outpatient (REF) | payer MEDICAID, SELFPAY ==
[2024-03-07 12:41] LABS: Hematocrit 37.4 % (37.0-47.0); Hemoglobin 12.2 g/dl (12.0-16.0); Mean Corpuscular HGB Conc 32.6 g/dl (31.0-35.0); Mean Corpuscular Hemoglobin 29.2 pg (27.0-33.0); Mean Corpuscular Volume 89.5 fL (80.0-98.0); Mean Platelet Volume 12.3 fL (9.4-12.3); Platelet Count 285 X10*3/uL (160-400); Red Blood Count 4.18 X10*6/uL (4.20-5.50); Red Cell Distribution Width 13.6 % (11.0-16.0); White Blood Count 8.9 X10*3/uL (4.8-10.8)
[2024-03-07 13:29] LABS: HCG Quantitative < 2 mIU/mL; TSH reflex Free T4 1.07 uIU/mL (0.32-4.0)
[2024-03-07 16:06] LABS: CT PCR NOT DETECTED (Not Detect.); NG PCR NOT DETECTED (Not Detect.)
[2024-03-09 01:03] LABS: Prolactin 7.9 ng/mL
== END 2024-03-07 11:50 | disposition home or self-care (01) ==
LOC: HO.LAB 11:49
PROVIDERS: PCP Registered Nurse; Visit Provider Obstetrics & Gynecology
DX: N93.9 Abnormal uterine and vaginal bleeding, unspecified (principal)
CPT/HCPCS: 0353U; 81025; 84146; 84443; 84702; 85027; 99212

== ENCOUNTER 2024-03-09 12:17 | Outpatient (REF) | payer MEDICAID, SELFPAY | END 2024-03-09 12:18 | disposition home or self-care (01) | LOC: HO.MRI 12:17 | PROVIDERS: PCP Registered Nurse; Visit Provider Registered Nurse | DX: Z13.89 Encounter for screening for other disorder (principal) ==

== ENCOUNTER 2024-03-15 11:20 | Outpatient (REF) | payer MEDICAID, SELFPAY ==
--- NOTE | ~2024-03-15 | US_ITS ---
EXAMINATION: US PELVIS CLINICAL INFORMATION: Abnormal uterine and vaginal bleeding, last menstrual period 02/29/2024. COMPARISON: MR pelvis 11/25/2023, ultrasound 06/23/2023, CT urogram 07/01/2023, pelvic ultrasound 06/23/2023. TECHNIQUE: Ultrasound of the pelvis is performed using both transabdominal and transvaginal transducers along with Doppler. Transvaginal imaging is performed due to inadequate visualization transabdominally. FINDINGS: The uterus is retroverted and measures 8.8 x 4.6 x 5.4 cm, volume of 114 mL. Endometrium is echogenic with thickness of 16 mm. 0.8 x 0.6 x 0.9 cm fibroid, previously 1.6 x 1.2 x 1.2 cm. 1.4 x 1.7 x 1.3 cm fibroid was not measured on prior ultrasound. 3.0 x 1.9 x 2.4 cm possible fibroid versus ovary previously measured 2.3 x 2.4 x 2.0 cm. Discrete right ovarian tissue not visualized with confidence. Redemonstration of a dilated tubular structure in the right adnexa. Structure felt to represent the left ovary measures 3.5 x 1.8 x 2.5 cm, volume 8.5 mL. Redemonstration of dilated large tubular structure in the left adnexa. US/US pelvic and transvaginal IMPRESSION: 1. Large tubular structures in the bilateral adnexal regions. Pelvic MR of 11/25/2023 demonstrated dilated tubular structures in the bilateral adnexa felt to represent hematosalpinges. Discrete right ovarian tissue not visualized with confidence. 2. Endometrium is echogenic with thickness of 16 mm. 3. Fibroid uterus. This study was presented today, April 11, 2024, for interpretation. Stat results provided at this time as requested by referring provider.
== END 2024-03-15 11:21 | disposition home or self-care (01) ==
LOC: HO.US 11:20
PROVIDERS: PCP Registered Nurse; Visit Provider Obstetrics & Gynecology
DX: N93.9 Abnormal uterine and vaginal bleeding, unspecified (principal)
CPT/HCPCS: 76830; 76856

== ENCOUNTER 2024-03-17 06:15 | Outpatient (REF) | payer MEDICAID, SELFPAY | END 2024-03-17 06:16 | disposition home or self-care (01) | LOC: CF 06:15 | PROVIDERS: Visit Provider Internal Medicine | DX: Z13.89 Encounter for screening for other disorder (principal) ==

== ENCOUNTER 2024-03-31 06:16 | Outpatient (REF) | payer MEDICAID, SELFPAY ==
--- NOTE | ~2024-03-31 | FL_ITS ---
EXAMINATION: XR FLUOROSCOPY WITH IMAGES CLINICAL INFORMATION: Sacrococcygeal disorder. COMPARISON: None available. TECHNIQUE: Fluoroscopy Supervised By: Dr. Buchanan. Fluoroscopy Time: 0.1 min. Cumulative Dose: 2.48 mGy. DAP: 0.190 Gycm2. Images: 2. FINDINGS: Intraoperative fluoroscopy and spot films were performed during a procedure in the OR. The needle overlies the mid right SI joint. Please correlate with Dr. Buchanan' report for complete details. FL/FL guidance in treatment room IMPRESSION: Intraoperative fluoroscopy and spot films were obtained. Please see Dr. Buchanan' report for complete details.
== END 2024-03-31 06:17 | disposition home or self-care (01) ==
LOC: CF 06:16
PROVIDERS: Visit Provider Internal Medicine
DX: M53.3 Sacrococcygeal disorders, not elsewhere classified (principal)
CPT/HCPCS: 27096; J2795; J3301

== ENCOUNTER 2024-04-05 13:38 | Outpatient (REF) | payer MEDICAID, SELFPAY ==
--- NOTE | ~2024-04-05 | MR_ITS ---
EXAMINATION: MR BREAST WITHOUT AND WITH CONTRAST, BILATERAL CLINICAL INFORMATION: left breat burning sensation COMPARISON: 05/28/2023 TECHNIQUE: Imaging was performed with a dedicated breast coil. Prior to the administration of contrast, bilateral axial T1 and bilateral axial T2 weighted sequences were obtained. After the uneventful administration of?8 mL of Gadavist, dynamic contrast-enhanced VIBRANT series through the breasts in the axial plane were performed. Subtracted images were performed and reviewed. A delayed sagittal sequence through both breasts was acquired. Additionally, CAD post-processing, including maximum intensity projections, 3-D reconstructions and kinetic analysis, were performed an independent workstation and reviewed by the interpreting radiologist is a portion of this exam. FINDINGS: The patient's fibroglandular tissue is heterogeneously dense and demonstrates significant background enhancement. Scattered T2 hyperintense masses in the bilateral breasts, consistent with cysts. LEFT BREAST: No suspicious masslike or non-masslike enhancement. No abnormal skin thickening or nipple retraction. Review of the T2 weighted images and kinetic images reveals no additional suspicious findings. RIGHT BREAST: No suspicious masslike or non-masslike enhancement. No abnormal skin thickening or nipple retraction. Review of the T2 weighted images and kinetic images reveals no additional suspicious findings. There is no suspicious internal mammary chain or axillary adenopathy. Limited views of the chest and abdomen are unremarkable. MR/MR breast BI wo/w con IMPRESSION: Significant background parenchymal enhancement somewhat limits evaluation of this exam. No MR specific evidence of malignancy. ASSESSMENT: LEFT BREAST: BI-RADS 1-Negative RIGHT BREAST: BI-RADS 1-Negative RECOMMENDATIONS: Clinical follow-up. Continued annual mammographic surveillance.
[2024-04-05] MEDS: gadobutroL 10 ML VIAL IVPUSH (14:41)
== END 2024-04-05 13:39 | disposition home or self-care (01) ==
LOC: HO.MRI 13:38
PROVIDERS: PCP Registered Nurse; Visit Provider Registered Nurse
DX: N64.4 Mastodynia (principal)
CPT/HCPCS: 77049; A9585

== ENCOUNTER 2024-04-29 10:21 | Outpatient (AMB) | payer MEDICAID, SELFPAY ==
--- NOTE | 2024-04-29 10:32 | A.OFFVIS_ITS ---
Vital Signs 04/29/24 10:36 Height 5 ft 3 in Weight 173 lb BMI 30.6 BP 134/82 Blood Pressure Location Lt brachial Position Sitting Pulse 61 Pulse Source Pulse Oximeter Pulse Oximetry (%) 98 Oxygen Delivery Method Room Air Intake Visit Reasons: RIGHT THERAPEUTIC SIJ INJECTION Intake Note: Pain today 12/12 Data Processing Systems Project Planner Required: Yes Data Processing Systems Project Planner Language: Jordanian Accompanied by: Self / Same As Patient Allergies ampicillin Allergy (Unknown, Verified 04/29/24 10:36) rash Penicillins [PCN] Allergy (Unknown, Verified 04/29/24 10:36) RASH tuberculin, purified protein deriva [TB TEST] Allergy (Unknown, Verified 04/29/24 10:36) UNK HPI HPI RIGHT THERAPEUTIC SIJ INJECTION: Details: 38-year-old female who presents today to the office for a right therapeutic SIJ injection. A certified product development chemist was present during the visit. The patient reports ongoing 70% relief following the procedure. She has significant relief. Past procedures 03/31/24: Sacroiliac Joint Injection, right: 70% relief. 02/25/24: Diagnostic Sacroiliac Joint Injection, Right: 50% relief. [facility] Medical History Bladder wall thickening Chronic pelvic pain in female Complex cyst of both ovaries Surgical History Hx of cystoscopy History of surgery of head Family History Maternal Grandmother Diabetes Mother Diabetes Social History Household Members Other:: daughter Housing: House Alcohol intake: never Patient Tobacco Use Status: Current everyday Tobacco user Cigarettes Per Day: 3 Sexual orientation: Straight/Heterosexual Gender identity: Female Female Reproductive History Menstrual Age of Menarche: 12 Review of Systems Const All systems reviewed & are unremarkable except as noted in HPI and below Physical Exam Vital Signs: Last Vital Signs Pulse 61 04/29/24 10:36 BP 134/82 04/29/24 10:36 Pulse Ox 98 04/29/24 10:36 Oxygen Delivery Method Room Air 04/29/24 10:36 BMI result Body Mass Index 30.6 General: Appears afebrile. Alert and oriented. Mood and affect appropriate. Follows and participates in conversation appropriately. Respiratory effort is unlabored. Able to transition from sit to stand unassisted. Ambulates with bilaterally normal heel strike and toe off. Results Reviewed Results Reviewed: No imaging is available for review. Assessment & Plan Assessment & Plan (1) Sacroiliac joint dysfunction: Code(s): M53.3 - Sacrococcygeal disorders, not elsewhere classified Category: Medical Plan Excellent response to therapeutic sacroiliac joint injection. Patient is satisfied with her level of pain relief at this point. Follow up as needed. Scribed for Dr. Buchanan by Rafat Walter medical library assistant, on 04/29/2024. I, Dr. Buchanan, have personally reviewed and agree with the information entered by the scribe. Coding Level of Care Code Est Pt Level 3 (89097) Diagnoses Sacroiliac joint dysfunction M53.3
[2024-04-29 10:36] VITALS: BP 134/82; PULSE 61; O2SAT 98; BMI 30.6
== END 2024-04-29 10:56 | disposition home or self-care (01) ==
PROVIDERS: PCP Registered Nurse; Visit Provider Internal Medicine
DX: M53.3 Sacrococcygeal disorders, not elsewhere classified (principal)
CPT/HCPCS: 99213

== ENCOUNTER → 2024-04-29 10:21 | Outpatient (BNVA) | payer MEDICAID, SELFPAY | PROVIDERS: PCP Registered Nurse; Visit Provider Internal Medicine | DX: M53.3 Sacrococcygeal disorders, not elsewhere classified (principal) | CPT/HCPCS: 99212 ==

== ENCOUNTER 2024-06-10 15:40 | Outpatient (REF) | payer MEDICAID, SELFPAY ==
[2024-06-10 18:13] LABS: Influenza A PCR NEGATIVE (Negative); Influenza B PCR NEGATIVE (Negative); Resp Syncy Virus RNA Qual PCR NEGATIVE (Negative); SARS COV2 PCR INHOUSE NEGATIVE (Negative)
[2024-06-11 03:36] LABS: CT PCR NOT DETECTED (Not Detect.); NG PCR NOT DETECTED (Not Detect.)
[2024-06-11 10:34] LABS: Bacterial Vaginosis PCR NEGATIVE (Negative); Candida Group PCR NOT DETECTED (Not Detect); Candida glab krusei PCR NOT DETECTED (Not Detect); Trichomonas vaginalis PCR NOT DETECTED (Not Detect)
== END 2024-06-10 15:41 | disposition home or self-care (01) ==
LOC: HO.CHCLNP 15:40
PROVIDERS: Visit Provider Registered Nurse
DX: R09.81 Nasal congestion (principal); N94.9 Unspecified condition associated with female genital organs and menstrual cycle
CPT/HCPCS: 0241U; 0352U; 87491; 87591

== ENCOUNTER 2024-07-11 11:27 | Outpatient (AMB) | payer MEDICAID, SELFPAY ==
--- NOTE | 2024-07-11 11:30 | MHC.OFFVIS ---
Vital Signs 07/11/24 11:32 Height 5 ft 3 in Weight 173 lb BMI 30.6 BP 110/72 Blood Pressure Location Lt brachial Position Sitting Respiration 14 Pulse 71 Pulse Source Pulse Oximeter Pulse Oximetry (%) 99 Oxygen Delivery Method Room Air Intake Visit Reasons: low back pain Laboratory Sample Carrier Required: Yes Laboratory Sample Carrier Name: [id number] Allergies ampicillin Allergy (Unknown, Verified 07/11/24 11:34) rash Penicillins [PCN] Allergy (Unknown, Verified 07/11/24 11:34) RASH tuberculin, purified protein deriva [TB TEST] Allergy (Unknown, Verified 07/11/24 11:34) UNK Medication List - Last Reconciled 07/11/24 by Kenisha Rawls LPN cholecalciferol (vitamin D3) 50 mcg PO DAILY -npfz fum-folic ac-om3 28-800-440 mg-mcg-mg (One Daily ) pkgs PO HPI HPI low back pain: Details: 38-year-old female who presents today to the office for low back pain. A certified per diem interpreter was present during the visit. The last injection provided 80% relief for three months and now her pain symptoms are starting to return on the right lower back similar to before, but less than intensity. She reports worsening of the low back pain when she tried to resume her job. She also reports burning pain in her neck region. She is amenable to repeat her last injection. She also requested some muscle relaxant medication for pain. Past procedures 03/31/24: Sacroiliac Joint Injection, right: 80% relief for three months. 02/25/24: Diagnostic Sacroiliac Joint Injection, Right: 50% relief. [facility] Medical History Bladder wall thickening Chronic pelvic pain in female Complex cyst of both ovaries Surgical History Hx of cystoscopy History of surgery of head Family History Maternal Grandmother Diabetes Mother Diabetes Social History Household Members Other:: daughter Housing: House Alcohol intake: never Patient Tobacco Use Status: Current everyday Tobacco user Cigarettes Per Day: 3 Sexual orientation: Straight/Heterosexual Gender identity: Female Female Reproductive History Menstrual Age of Menarche: 12 Review of Systems Const All systems reviewed & are unremarkable except as noted in HPI and below Physical Exam Vital Signs: Last Vital Signs Pulse 71 07/11/24 11:32 Resp 14 07/11/24 11:32 BP 110/72 07/11/24 11:32 Pulse Ox 99 07/11/24 11:32 Oxygen Delivery Method Room Air 07/11/24 11:32 BMI result Body Mass Index 30.6 General: Appears afebrile. Alert and oriented. Mood and affect appropriate. Follows and participates in conversation appropriately. Respiratory effort is unlabored. Able to transition from sit to stand unassisted. Ambulates with bilaterally normal heel strike and toe off. Results Reviewed Results Reviewed: No imaging is available for review. Assessment & Plan Assessment & Plan (1) Degenerative cervical disc: Code(s): M50.30 - Other cervical disc degeneration, unspecified cervical region Category: Medical Plan A referral was provided to physical therapy for neck pain secondary to cervical degeneration. The patient will receive a call to schedule an appointment. I also prescribed a trial of cyclobenzaprine 5 mg for neck and back pain. If her pain gets better with muscle relaxant, she can call and cancel the injection. We will schedule her for repeat right therapeutic sacroiliac joint injection. Discussed the risks and benefits of the procedure with the patient in detail. All questions were answered. The patient is on board with the plan. Justification for interventional therapy: ? Patient with average pain > 6/10 ? Patient has exhausted conservative therapy ? Patient unable to tolerate physical therapy due to pain. ? Previous injection provided 80% relief x 3 months. . Patient has a good understanding of their pain condition and has appropriate mental and social support. Scribed for Dr. Buchanan by Rafat Walter, medical driver, on 07/11/2024. I, Dr. Buchanan, have personally reviewed and agree with the information entered by the scribe. Orders: Orders PT Evaluation and Treatment 07/11/24 M50.30 - Other cervical disc degeneration, unspecified cervical region Medications: New cyclobenzaprine 5 mg PO TID PRN 90 tabs 0RF muscle spasm Coding Level of Care Code Est Pt Level 3 (61767) Diagnoses Degenerative cervical disc M50.30
[2024-07-11 11:32] VITALS: BP 110/72; PULSE 71; RESP 14; O2SAT 99; BMI 30.6
== END 2024-07-11 11:47 | disposition home or self-care (01) ==
PROVIDERS: PCP Registered Nurse; Visit Provider Internal Medicine
DX: M50.30 Other cervical disc degeneration, unspecified cervical region (principal)
CPT/HCPCS: 99213

== ENCOUNTER → 2024-07-11 11:27 | Outpatient (BNVA) | payer MEDICAID, SELFPAY | PROVIDERS: PCP Registered Nurse; Visit Provider Internal Medicine | DX: M50.30 Other cervical disc degeneration, unspecified cervical region (principal); M54.50 Low back pain, unspecified | CPT/HCPCS: 99212 ==

== ENCOUNTER 2024-10-06 14:04 | Outpatient (RCR) | payer MEDICAID, SELFPAY ==
--- NOTE | 2024-09-07 14:36 | MHC.PT.EP ---
[facility] [place] Office [place] Office [place] Office [address] Yo Valenzuela [address] [phone] F: [phone] F: [phone] F: [phone] F: [phone] Physical Therapy Plan of Care Date of Evaluation: 09/07/24 Date of Surgery: Diagnosis: Degenerative cervical disc (per MD) Cervicothoracic pain d/t postural dysfunction Assessment: Carolyn is a 39 yo Chinese speaking female who was referred by Dr. Sergio Buchanan MD of [facility], for Dx of degenerative cervical disc. PT diagnosis is cervicothoracic pain d/t postural dysfunction. Impairments include decreased cervical and thoracic ROM, decreased shoulder strength, TTP neck and upper back musculature resulting in their inability to drive, lift, or turn head without pain. 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 Pt will benefit from skilled PT to address impairments and meet their goals. Frequency and Duration: The patient will be seen 1x/week for 4 weeks Short Term Goals: 2 weeks Patient will be able to perform HEP to independently manage condition. Patient will be able to demonstrate proper neck and shoulder sitting posture to relieve symptoms while driving. Retail Brand Ambassador Goals: 4 weeks Patient will increase cervical rotation ROM to 60 deg b/l to be able to turn head while driving. Patient will increase shoulder flexion strength to 4+/5 b/l to be able to lift 10 lbs without limitation. Treatment Plan: Modalities to reduce pain, spasms and effusion. Manual therapy to restore motion and function. Therapeutic exercise to improve strength and flexibility. Neuromuscular re-education for posture and balance. Therapeutic activities to return to functional activities of daily living. Electronically signed by: Devyn Knight, PT, DPT Please sign and return to therapist. Thank you for your referral.
--- NOTE | 2024-11-15 13:54 | MHC.PT.DC ---
[facility] [place] Office [place] Office [place] Office [address] Yo Valenzuela [address] [phone] F: [phone] F: [phone] F: [phone] F: [phone] Physical Therapy Discharge Report Diagnosis: Degenerative cervical disc (per MD) Cervicothoracic pain d/t postural dysfunction Date of Surgery: Date of Evaluation: 09/07/24 Date of Discharge: 11/15/24 Treatments to Date: 3 Cancellations to Date: 1 No Shows to Date: 1 Discharge Status: Independent with HEP Patient Elected to Stop Discharge Summary: Carolyn reported some reduction of pain level in her neck with PT interventions and exercises for 3 sessions she attended, but she ceased attending PT on her own accord after PT session on 10/06/24. Electronically signed by: Devyn Knight, PT, DPT Please sign and return to therapist. Thank you for your referral.
== END 2024-11-15 13:54 | disposition home or self-care (01) ==
LOC: HO.PT 14:04
PROVIDERS: PCP Registered Nurse; Visit Provider Internal Medicine
DX: M50.30 Other cervical disc degeneration, unspecified cervical region (principal)
CPT/HCPCS: 97110; 97140; 97161; 97535

== ENCOUNTER 2024-12-05 13:18 | Outpatient (REF) | payer MEDICAID, SELFPAY ==
--- OUTSIDE RECORDS SUMMARY | 2024-12-05 15:35 | XMS_ITS | Encounter Summary ---
Author Organization [employer] Address [address] [facility] [address] [place] [address] Care Team Providers Care Workers Compensation Claims Examiner Name Role Phone Eulalia Tony Primary Care Provider Encounter Details Date Type Department Care Team ([facility] st Contact Info) Description 02/24/2024 Orders Only [facility] MED [facility] PEDS [address] [place], [place] [id number] Eulalia Tony FNP [address] [place] [address] Bacterial vaginitis (Primary Dx) Social History Tobacco Use Types Packs/Day Years Used Date Smoking Tobacco: Former Cigarettes Passive Smoke Exposure: Current Smokeless Tobacco: Never Passive Exposure Comments:katiana yfriend Alcohol Use Standard Drinks/Week Comments Not Currently 0 (1 standard drink = 0.6 oz pur e alcohol) Depression Answer Date Recorded Patient Health Questionnaire-9 Score 15 12/15/2023 Patient Health Questionnaire-9 Score 15 12/15/2023 Last PHQ-9: Questionnaire Data Not on file 0 12/15/2023 Housing Stability Answer Date Recorded What is your housing situation today? I do not have housing (Staying with others, in a hotel, in a prison, living outside on the street, on a beach, in a car, or in a park 02/22/[address] you li ve. Do you have problems with any of the following? None of the above 02/22/2024 Food Insecurity Answer Date Recorded Within the past 12 months, y ou worried that your food would run out before you got money to buy more: Often true 02/22/2024 Within the past 12 months,th e food you bought just didn't last and you didn't have enough money to get more: Often true Transportation Answer Date Recorded In the past 12 months, has l ack of transportation kept you from medical appts, meetings, work or from getting things needed for daily living? No 02/22/2024 Utilities Answer Date Recorded In the past 12 months, has t he electric, gas, oil or water company threatened to shut off services in your home? No 02/22/2024 Depression Answer Date Recorded Patient Health Questionnaire-2 Score 3 12/15/2023 Comments Unknown Sex and Gender Information Value Date Recorded Sex Assigned at Female 08/04/2022 10:16 AM EDT Legal Sex Female 10:16 AM EDT Gender Identity Female 08/04/2022 10:16 AM EDT Sexual Orientation Straight 08/04/2022 10 :16 AM EDT documented as of this encounter Plan of Treatment Upcoming Encounters Date Type Department Care Team (Late st Contact Info) Description 02/06/2025 1:15 PM EDT Office Visit [facility] MED & PEDS [address] [place] [address] Eulalia Tony FNP [address] [place] [address] documented as of this encounter Visit Diagnoses Diagnosis Bacterial vaginitis- Primary Unspecified vaginitis and vulvovaginitis documented in this encounter Additional Health Concerns Assessment Noted Time PHQ-9 Depression Total Score: 15 024 1:51 PM EDT documented as of this encounter Care Teams Workers Compensation Claims Examiner Relationship Specialty Start Date End Date Eulalia Tony FNP [address] [place] [address] PCP - General Family Medicine 02/19/23 documented as of this encounter
--- OUTSIDE RECORDS SUMMARY | 2024-12-05 15:35 | XMS_ITS | Encounter Summary ---
Author Organization [employer] Address [address] [facility] [address] [place] [address] Care Team Providers Care Automatic I Threading Machine Feeder Name Role Phone Eulalia Tony GURVINDER Primary Care Provider [phone] Encounter Details Date Type Department Care Team (Latest Contact Info) Description 12/05/2024 Travel Social History Tobacco Use Types Packs/Day Years Used Date Smoking Tobacco: Former Passive Smoke Exposure: Current Smokeless Tobacco: Never Passive Exposure Comments:katiana yfriend Alcohol Use Standard Drinks/Week Comments Not Currently 0 (1 standard drink = 0.6 oz pur e alcohol) Depression Answer Date Recorded Patient Health Questionnaire-9 Score 12 08/29/2024 Patient Health Questionnaire-9 Score 12 08/29/2024 Last PHQ-9: Questionnaire Data Not on file 1 10/29/2023 Housing Stability Answer Date Recorded What is your housing situation today? I do not have housing (Staying with others, in a hotel, in a alf, living outside on the street, on a [...] Answer Date Recorded Patient Health Questionnaire-2 Score 2 08/29/2024 Comments No Sex and Gender Information Value Date Recorded Sex Assigned at Female 08/04/2022 10:16 AM EDT Legal Sex Female 10:16 AM EDT Gender Identity Female 08/04/2022 10:16 AM EDT Sexual Orientation Straight 08/04/2022 10 :16 AM EDT documented as of this encounter Plan of Treatment Upcoming Encounters Date Type Department Care Team (Late st Contact Info) Description 02/06/2025 1:15 PM EDT Office Visit [facility] MED & PEDS [address] [place] [address] Eulalia Tony FNP [address] [place] [address] documented as of this encounter Visit Diagnoses Not on filedocumented in this encounter Additional Health Concerns Assessment Noted Time PHQ-9 Depression Total Score: 12 024 10:15 AM EST documented as of this encounter Care Teams Automatic I Threading Machine Feeder Relationship Specialty Start Date End Date Eulalia Tony FNP [address] [place] [address] PCP - General Family Medicine 02/19/23 documented as of this encounter
--- OUTSIDE RECORDS SUMMARY | 2024-12-05 15:35 | XMS_ITS | Encounter Summary ---
Author Organization [employer] Address [address] [facility] [address] [place] [address] Care Team Providers Care Roller Stitcher Name Role Phone Eulalia Tony Primary Care Provider [phone] Reason for Visit * Reason Onset Date Comments Nurse Triage 12/05/2024 Encounter Details Date Type Department Care Team ([facility] st Contact Info) Description 12/05/2024 Telephone [facility] [address] [place] [address] Eulalia Tony FNP [address] [place] [address] Nurse Triage Social History Tobacco Use Types Packs/Day Years [...] with others, in a hotel, in a fci, living outside on the street, on a [...] AM EDT documented as of this encounter Miscellaneous Notes * Telephone Encounter - Rowan Rizzo LPN - 12/05/2024 8:36 AM EST Triage call returned with BLS # [id number] Adrienne. Patient reports several months of flank pain has warsened over last several days. Patient reportsthat she has had noted scant blood in urine and has burning withurination. Patient reports that shehas been seen in the past for similar symptoms with no known cause. No fever at time of call but reports significant pain and worse laying down. Disposition reviewed and patient in agreement with plan. ASK/PCP Ashlee today at 11am @ [facility]. Reviewed with patient home care recommendations and reasonsto call back. Pt verbalized understanding and agrees. Protocol Used: Flank Pain (Adult) Protocol-Based Disposition: Go to Office or Video Visit Now Video visit not offered Positive Triage Question: * Pain or burning with passing urine (urination) * All higher-acuity triage questions were negative Care Advice Discussed: * Reasons To Call Back - Fever over 100.4 F (38.0 C) - Burning with urination or blood in urine - Pain lasts over 3 days - You become worse * Telephone Encounter - Aarti Sánchez - 12/05/2024 8:20 AM EST Symptom: Flank Pain Outcome: Schedule a same-day appointment or talk to a nurse or provider today Reason: Caller denied all higher acuity questions The caller accepted this outcome. [phone] Liberian documented in this encounter Plan of Treatment Upcoming Encounters Date Type Department Care Team ([facility] st Contact Info) Description 02/06/2025 1:15 PM EDT Office Visit [facility] MED & PEDS [address] [place] [address] Eulalia Tony FNP [address] [place] [address] documented as of this encounter Visit Diagnoses Not on filedocumented in this encounter Additional Health Concerns Assessment Noted Time PHQ-9 Depression Total Score: 12 024 10:15 AM EST documented as of this encounter Care Teams Roller Stitcher Relationship Specialty Start Date End Date Eulalia Tony FNP [address] [place] [id number] PCP - General Family Medicine 02/19/23 documented as of this encounter
--- OUTSIDE RECORDS SUMMARY | 2024-12-05 15:35 | XMS_ITS | Encounter Summary ---
Author Organization [employer] Address [address] [facility] [address] [place] [address] Care Team Providers Care Cardiology Consultant Name Role Phone PapitoEulalia calvo GURVINDER Primary Care Provider [phone] Encounter Details Date Type Department Care Team ([facility] st Contact Info) Description 11/08/2024 10:00 AM EST Office Visit [facility] MED & PEDS [address] [place] [address] Marie Torrez MD [address] [place] [address] dermatosis papulosa nigra (Primary Dx) Social History Tobacco Use Types [...] with others, in a hotel, in a [facility], living outside on the street, on a [...] AM EDT documented as of this encounter Last Filed Vital Signs Vital Sign Reading Time Taken Comments Blood Pressure 127/79 11/08/2024 9:53 AM EST Pulse 64 11/08/2024 9:53 AM EST Temperature 36.8 ??C (98.2 ??F) 11/08/2024 9:53 AM ES T Respiratory Rate 21 11/08/2024 9:53 AM EST Oxygen Saturation 100% 11/08/2024 9:53 AM EST Inhaled Oxygen Concentration - - Weight 81.2 kg (179 lb) 11/08/2024 9:53 AM EST Height 160 cm (5' 3 ) 11/08/2024 9:53 AM EST Body Mass Index 31.71 11/08/2024 9:53 AM EST documented in this encounter Progress Notes * Marie Torrez MD - 11/08/2024 10:00 AM EST Subjective Patient ID: Carolyn Araya is a 39 y.o. female who presents for No chief complaint on file.. HPI Concerned about small skin tags of the eyelid that she removes by herself Also concerned about some small similar hyperpigmented lesions under the breasts. No personal h/o cancer or family h/o cancer. Patient Active Problem List Diagnosis Trichilemmal cyst Infertility of tubal origin Overactive bladder Mood disorder ([facility]) Smoker Healthcare maintenance Ovarian cyst Hydrosalpinx Mastodynia, female Lumbar facet arthropathy Generalized abdominal pain Vertigo Fibroid SI (sacroiliac) joint dysfunction Chronic pelvic pain in female Abnormal uterine bleeding Current Outpatient Medications on File Prior to Visit Medication Sig Dispense Refill cholecalciferol (Vitamin D-3) 50 MCG (2000 UT) tablet take 1 tablet by oral route every day 90 tablet 1 fluconazole (Diflucan) 150 MG tablet Take 1 tablet by mouth 1 time for 1 dose. Repeat in 72 hours if symptoms persist. 2 tablet 0 ibuprofen 800 MG tablet 1 tablet every 8 hours with food x 7 days 21 tablet 0 metroNIDAZOLE (Metrogel) 0.75 % vaginal gel Insert one applicator into vagina at bedtime for 5 nights 45 g 0 nicotine (Nicoderm CQ) 7 MG/24HR patch Place 1 patch on the skin 1 (one) time each day at the same time. 30 patch 0 nicotine polacrilex (Nicorette) 4 MG gum Chew 1 each (4 mg) if needed for smoking cessation. 100 each 1 polyvinyl alcohol (Liquifilm Tears) 1.4 % ophthalmic solution one drop in each eye 3-4 times per day Vit-Fe Fumarate-FA (PNV Plus Multivitamin) 27-1 MG tablet Take 1 tablet by mouth daily 90 tablet 3 tolterodine LA (Detrol LA) 2 MG 24 hr capsule take 1 capsule by oral route every day No current facility-administered medications on file prior to visit. Allergies Allergen Reactions Penicillins Other reaction(s): Rash Review of Systems Constitutional: Negative for appetite change, chills and diaphoresis. Eyes: Negative for photophobia, pain and redness. Respiratory: Negative for cough, choking and shortness of breath. Musculoskeletal: Negative for back pain, gait problem and joint swelling. Objective BP 127/79 (BP Location: Left arm, Patient Position: Sitting, BP Cuff Size: Adult long) Pulse 64 Temp 98.2 ??F (36.8 ??C) (Oral) Resp 21 Ht 5' 3 (1.6 m) Wt 179 lb (81.2 kg) SpO2 100% BMI 31.71 kg/m?? Physical Exam Constitutional: General: She is not in acute distress. Appearance: Normal appearance. She is not ill-appearing, toxic-appearing or diaphoretic. Pulmonary: Effort: Pulmonary effort is normal. Skin: Comments: Multiple 1 x 1 x 1 mm pedunculated lesions of the eyelids and cheeks and under the breasts. Neurological: Mental Status: She is alert. Assessment/Plan Diagnoses and all orders for this visit: dermatosis papulosa nigra Comments: Reassurance No malignant potential Pt advised to keep her skin well moisturized. RTC prn. documented in this encounter Plan of Treatment Upcoming Encounters Date Type Department Care Team ([facility] st Contact Info) Description 02/06/2025 1:15 PM EDT Office Visit [facility] MED & PEDS [address] [place] [address] Eulalia Tony FNP [address] [place] [address] documented as of this encounter Visit Diagnoses Diagnosis dermatosis papulosa nigra- Primary documented in this encounter Additional Health Concerns Assessment Noted Time PHQ-9 Depression Total Score: 12 024 10:15 AM EST documented as of this encounter Care Teams Cardiology Consultant Relationship Specialty Start Date End Date Eullaia Tony FNP [address] [place] [address] PCP - General Family Medicine 02/19/23 documented as of this encounter
--- OUTSIDE RECORDS SUMMARY | 2024-12-05 15:35 | XMS_ITS | Clinical Summary ---
Author Organization [employer] Address [address] [facility] 7 [place] [address] Care Team Providers Care Ob/Gyn Doctor Name Role Phone Eulalia Tony GURVINDER Primary Care Provider [phone] Allergies Active Allergy Reactions Criticality Noted Date Comments Penicillins 10/09/2017 Other reaction(s): Rash Medications polyvinyl alcohol (Liquifilm Tears) 1.4 % ophthalmic solution one drop in each eye 3-4 times per day 9 Active tolterodine LA (Detrol LA) 2 MG 24 hr capsule take 1 capsule by oral route every day 2 Active cholecalciferol (Vitamin D-3) 50 MCG (1999 UT) tablet take 1 tablet by oral route every day 90 tablet 1 3 Active Vit-Fe Fumarate-FA (PNV Plus Multivitamin) 27-1 MG tablet Take 1 tablet by mouth daily 90 tablet 3 3 Active nicotine (Nicoderm CQ) 7 MG/24HR patch Place 1 patch on the skin 1 (one) time each day at the same time. 30 patch 4 Active nicotine polacrilex (Nicorette) 4 MG gum Chew 1 each (4 mg) if needed for smoking cessation. 100 each 1 4 Active ibuprofen 800 MG tablet 1 tablet every 8 hours with food x 7 days 21 tablet 4 Active metroNIDAZOLE (Metrogel) 0.75 % vaginal gelIndications: Bacterial Vaginosis Insert one applicator into vagina at bedtime for 5 nights 45 g 4 Active fluconazole (Diflucan) 150 MG tabletIndicatio ns:Vaginal itching Take 1 tablet by mouth 1 time for 1 dose. Repeat in 72 hours if symptoms persist. 2 tablet 4 Active Active Problems Problem Noted Date Diagnosed Date Chronic pelvic pain in female 06/12/2024 Overview (12/05/2024): Following with [facility] Hx of hydrosalpinx, AUB, fibroids, possible ovarian cyst Assessment & Plan (12/05/2024 1:50 PM EST): - MANAGER FUNCTIONAL consult Sep 2024, discussed consideration of hysterectomy. Pt is considering. Encouraged to follow up as scheduled with [facility], sooner PRN. Abnormal uterine bleeding 06/12/2024 Overview (12/05/2024): Followed by [facility] - Dr. Meneses beginning of 2023, with plan to transition to [facility] fall. Last pap May 2022 NILM, HPV neg 09/14/24: EMB completed at [facility] - late endometrium with stromal breakdown 03/15/24: US pelvis. 1. Large tubular structures in the bilateral adnexal regions. Pelvic MR of 11/25/2023 demonstrated dilated tubular structures in the bilateral adnexa felt to represent hematosalpinges. Discrete right ovarian tissue not visualized with confidence. 2. Endometrium is echogenic with thickness of 16 mm. 3. Fibroid uterus. SI (sacroiliac) joint dysfunction 02/23/2024 Overview (06/12/2024): Following with [facility] - Dr. Buchanan Recommendation per consult December 2023 for diagnostic SI joint injection with local anesthesia, and SI joint compression belt 02/25/24: Diagnostic SIJ injection (right): 50% pain relief. 03/31/24: Therapeutic SIJ injection (right): 70% pain relief Assessment & Plan (09/04/2024 9:01 PM EST): - Referred to physical therapy by [facility] (reports consult scheduled for 09/09/24) - Scheduled for repeat right therapeutic SI joint injection Fibroid 02/22/2024 Overview (02/22/2024): 11/25/23: MRI pelvis wo/w contrast ordered by Dr. Meneses. Impression: pedunculated anterior subserosal fibroid measures 2.3 x 2.3 x 2.3 cm. Bilateral hematosalpinx. Per MANAGER FUNCTIONAL consult December 2023 - discussed findings as well as risk of myosarcoma (malignant muscle tumor) Plan: repeat pelvic US periodically, appt sooner if symptomatic Generalized abdominal pain 12/15/2023 Assessment & Plan (12/15/2023 4:18 PM EDT): Pt endorses pain with swallowing and epigastric pain with food, endorses intermittent bloating, rx famotidine, h pylori stool test ordered, pt aware to not start med until sample is collected, has scheduled follow up with PCP Vertigo 12/15/2023 Assessment & Plan (12/15/2023 4:21 PM EDT): Intermittent vertigo with no associated symptoms, reviewed signs symptoms to report, meclizine offered as well as PT, pt opts for PT trial reassuring neuro exam today Lumbar facet arthropathy 12/08/2023 Assessment & Plan (02/22/2024 6:41 AM EDT): Lumbar XR from Aug 2023 with the following IMPRESSION: 1. No acute fracture or spondylolisthesis is seen. 2. The lower thoracic and lumbar disc spaces are well-maintained. 3. There is multi-level mild thoracolumbar spondylosis. 4. There is facet arthropathy at L5-S1. Referrals: - Physical therapy sessions w/o noted improvement - [facility]: consult December 2023 with diagnosis SI joint dysfunction. Recommended SI joint compression belt, diagnostic SI joint injection. Cont with symptomatic management at home, reviewed red flag symptoms Assessment & Plan (12/08/2023 2:42 PM EST): Lumbar XR from Aug 2023 with the following IMPRESSION: 1. No acute fracture or spondylolisthesis is seen. 2. The lower thoracic and lumbar disc spaces are well-maintained. 3. There is multi-level mild thoracolumbar spondylosis. 4. There is facet arthropathy at L5-S1. Referrals: - Physical therapy sessions w/o noted improvement - Referral to [facility] on 12/08/23 for further eval Cont with symptomatic management at home, reviewed red flag symptoms Hydrosalpinx 08/22/2023 Overview (08/22/2023): ?? Chronic hydrosalpinx of left ovary noted CT Urogram Jun 2023 ?? Following with [facility] OBGYN Assessment & Plan (12/08/2023 2:40 PM EST): 11/25/23: MRI pelvis wo/w contrast ordered by Dr. Meneses. Impression: pedunculated anterior subserosal fibroid measures 2.3 x 2.3 x 2.3 cm. Bilateral hematosalpinx. Mastodynia, female 08/22/2023 Overview (12/08/2023): Chronic, intermittent, left > right Diagnostic mammo Jul 2023 with the following impression: No mammographic or sonographic signs of malignancy. Incidental, small benign cysts in the 1:00 region of the left breast. Clinical follow-up for the patient's complaint of diffuse bilateral breast pain is advised. BI-RADS 2 Symptomatic > 5 months, MRI ordered 12/08/23 for further eval. 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 Referred to [facility] for complex ovarian cyst in May 2023. -Upcoming CT scheduled 07/01/23 likely ordered by [facility] US completed 06/23/23 with the following impression: 1. Persistent large bilateral adnexal tubular/complex cystic structures. Differential considerations include hydrosalpinx or paraovarian/ovarian cyst. 2. Fibroid uterus. 3. Endometrial thickness is 1.2 cm. 4. Limited visualization of the right ovary. 5. Mildly complex 1.9 cm left ovarian cyst was not previously identified. Mood disorder 03/28/2023 Assessment & Plan (12/15/2023 4:19 PM EDT): Endorses depressed mood, but reports feels supported in therapy, has visit tomorrow Assessment & Plan (03/28/2023 2:02 PM EDT): -Followed by Dr. Garay -Continues on the following med regimen through psych: ?? Prazosin nightly ?? Escitalopram daily Smoker 03/28/2023 Assessment & Plan (12/15/2023 4:19 PM EDT): Motivated to quit, reviewed support options, pt opts for nicotine patch and gum, medication indication, side effects and usage reviewed, questions answered. Pt aware to call if side effects occur Assessment & Plan (08/22/2023 10:19 AM EST): ?? Currently smoking 3 cigg/day ?? Encouraged smoking cessation resources such as pharmacomtherapy, [facility] smoking cessation group, and [facility] pharmacy smoking cessation clinic ?? Pre-contemplation phase Assessment & Plan (06/26/2023 9:14 PM EDT): ?? Currently smoking 2 cigg/day ?? Encouraged smoking cessation resources such as pharmacomtherapy, [facility] smoking cessation group, and [facility] pharmacy smoking cessation clinic Assessment & Plan (03/28/2023 2:07 PM EDT): ?? Currently smoking 2 cigg/day ?? Encouraged smoking cessation resources such as pharmacomtherapy, [facility] smoking cessation group, and [facility] pharmacy smoking cessation clinic Healthcare maintenance 03/28/2023 Overview (06/12/2024): Last PE: 12/15/23 ([facility]) Pap: 05/16/22 NILM HPV neg Mammo: left breast MRI April 2024 w/o evidence of malignancy. Colonoscopy: routine screening at 43 y/o Dental: [facility] Dental referral 02/22/24 BMD: starting at 65 y/o Assessment & Plan (12/15/2023 4:20 PM EDT): Pt utd with routine screening including pap, mammogram, requesting blood work today. 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 However, declines IVF at this time. Overactive bladder 03/27/2023 Assessment & Plan (03/27/2023 7:24 AM EDT): Followed by [facility] ([facility]viously [facility]) Tx with Detrol LA Trichilemmal cyst 01/05/2019 Resolved Problems Problem Noted Date Diagnosed Date Resolved Date Tuberculosis high risk 01/08/202402/21 H. pylori infection 12/28/2023 06/12/20 Assessment & Plan (06/12/2024 4:43 PM EDT): -Tx with quadruple therapy December 2023 -VANDANA negative: 01/11/24 -Pt would like to repeat test as concerned about quality of sample she provided. Ordered. -VANDANA repeat negative: 02/23/24 Assessment & Plan (02/23/2024 10:41 AM EDT): -Tx with quadruple therapy December 2023 -VANDANA negative: 01/11/24 -Pt would like to repeat test as concerned about quality of sample she provided. Ordered. Assessment & Plan (01/09/2024 1:35 PM EDT): Reviewed management, pt to start quadruple therapy, Medication Indications, side effects and duration of therapy reviewed, pt aware to call clinic for worsening symptoms or failure to resolve Test of cure ordered If not improvement or failure to resolve, referral to [facility] infection, oral 12/15/2023 05/2 Assessment & Plan (12/15/2023 4:22 PM EDT): medication indication, side effects and usage reviewed, questions answered. Pt aware to call if side effects occur Dental plaque 03/13/2023 03/28/2023 Encounters Date Type Department Care Team Description 12/05/2024 11:00 AM EST Office Visit [facility] [address] [place] [address] Eulalia Tony FNP Urinary symptom or sign (Primary Dx); Right flank pain; Vaginal symptom; Chronic pelvic pain in female; Abnormal uterine bleeding 12/05/2024 Travel 12/05/2024 Telephone [facility] MED[facility] [address] [place] [address] Eulalia Tony FNP Nurse Triage 11/08/2024 10:00 AM EST Office Visit [facility] [address] [place] [address] Marie Torrez MD dermatosis papulosa nigra (Primary Dx) 11/08/2024 Travel from Last 3 Months Immunizations Name Administration Dates Next Due Pfizer Covid-19 Vaccine 12+ 11/09/2021 Pfizer Covid-19 Vaccine 12+ reji-sucrose (Booth C ap) 11/09/2021 Pneumococcal Conjugate PCV 20 03/27/2023 Tdap 01/17/2022 Family History Medical History Relation Name Comments No Known Problems Brother Diabetes Maternal Grandfather Diabetes Maternal Grandmother Hypertension Maternal Grandmother myocadial infarction Maternal Grandmother HIV Mother Hyperlipidemia Mother Hypertension Mother Relation Name Status Comments Brother Maternal Grandfather Maternal Grandmother Mother Social History Tobacco Use Types Packs/Day Years Used Date Smoking Tobacco: Former Passive Smoke Exposure: Current Smokeless Tobacco: Never Tobacco Cessation:Counseling Given: Not Answered Passive Exposure Comments:boyfriend Alcohol Use Standard Drinks/Week Comments Not Currently [...] with others, in a hotel, in a fpc, living outside on the [address], on a [...] Orientation Straight 08/04/2022 10 :16 AM EDT Last Filed Vital Signs Vital Sign Reading Time Taken Comments Blood Pressure 124/84 12/05/2024 10:53 AM EST Pulse 64 12/05/2024 10:53 AM EST Temperature 36.8 ??C (98.2 ??F) 12/05/2024 10:[address] Respiratory Rate 20 12/05/2024 10:53 AM EST Oxygen Saturation 99% 12/05/2024 10:53 AM EST Inhaled Oxygen Concentration - - Weight 82.3 kg (181 lb 6.4 oz) 12/05/2024 10:53 AM EST Height 165.1 cm (5' 5 ) 12/05/2024 10:53 AM EST Body Mass Index 30.19 12/05/2024 10:53 AM EST Plan of Treatment Upcoming Encounters Date Type Department Care Team (Late st Contact Info) Description 02/06/2025 1:15 PM EDT Office Visit [facility] [address] [place] [address] Eulalia Tony, LEGAL INSTRUCTOR [address] [place] [address] Health Maintenance Due Date Last Done Comments Hepatitis B Vaccines (1 of 3 - 19+ 3-dose series) 2002 Dental Prophylaxis 12/18/2021 06/19/2021, 1 , 01/14/2019 Dental Oral Exam 09/13/2023 03/13/2023, , 10/28/2018, Additional history exists Dental X-Ray: Bitewings 03/14/2024 03/13/20 23, 06/19/2021, 10/28/2018, Additional history exists Dental X-Ray: Full Mouth 06/20/2024 06/19/2021, 02/2018 SDOH Screening 02/21/2025 02/22/2024 Depression Monitoring (PHQ-9) 02/26/2025 08/29/2024, 08/29/2024 Influenza Vaccine (#1) 2025 Postp oned from 06/05/2024 (Patient Refused) Family Planning (PISQ) 05/16/2025 05/16/2024 Depression Screening 08/29/2025 08/29/2024, 08/29/20 24 COVID-19 Vaccine ( season) 2025 01/30/2022, 11/09/2021, 11/09/2021 Postponed from 06/05/2024 (Patient Refused) Tobacco Screening 11/08/2025 11/08/2024 Alcohol/Substance Use Screening 12/05/2025 12/05/2024 Mammogram 04/05/2026 04/05/2024, 07/06, 07/28/2023 Cervical Cancer Screening 05/16/2027 HPV/Cotest 05/16/2027 05/16/2022, 05/05, 08/02/2020, Additional history exists Pap Smear 05/16/2027 05/16/2022 DTaP/Tdap/Td Vaccines (2 - Td or Tdap) 01/18/2032 01/17/2022 Zoster Vaccines (1 of 2) 2033 RSV Patients and Patients Aged 60 years or older (1 - 1-dose 75+ series) 2058 Pneumococcal Vaccine: Pediatrics (0 to 5 Years) and At-Risk Patients (6 to 49) Years) Aged Out 03/27/2023 No longer eligible based on patient's age to complete this topic HIV Screening Completed 12/15/2023, 01/03, 11/02/2020 Hepatitis C Screening Completed 12/15/2023, 021 HIB Vaccines Aged Out No longer eligi ble based on patient's age to complete this topic HPV Vaccines Aged Out No longer eligi ble based on patient's age to complete this topic Hepatitis A Vaccines Aged Out No long er eligible based on patient's age to complete this topic IPV Vaccines Aged Out No longer eligi ble based on patient's age to complete this topic Meningococcal Vaccine Aged Out No lise mary ann eligible based on patient's age to complete this topic RSV under 20 months Aged Out No longe r eligible based on patient's age to complete this topic Rotavirus Vaccines Aged Out No longer eligible based on patient's age to complete this topic Procedures Procedure Name Priority Date/Time Associated Diagnosis Comments POCT URINALYSIS DIPSTICK Routine 12/05/2024 11:38 AM EST Urinary symptom or sign BI MR BREAST W AND WO CONTRAST BILATERAL Routine 04/05/2024 2:45 PM EDT Mastodynia, female HEPATITIS C ANTIBODY Routine 12/15/2023 2:43 PM EDT Healthcare maintenance HIV 1/2 ANTIGEN/ANTIBODY, FOURTH GENERATION W/RFL Routine 12/15/2023 2:43 PM EDT Healthcare maintenance BITEWINGS - 4 RADIOGRAPHIC IMAGES Routine 03/13/2023 10:00 AM EDT PERIODIC ORAL EVALUATION - ESTABLISHED PATIENT Routine 03/13/2023 10:00 AM EDT ZZZ HISTORICAL HPV E6/E7 RFLX CARLOS 16 18/45 Routine 05/16/2022 11:56 AM EDT PAP SMEAR Routine 05/16/2022 12:00 AM EDT PROPHYLAXIS - ADULT Routine 06/19/2021 1 2:00 AM EDT INTRAORAL - COMPLETE SERIES OF RADIOGRAPHIC IMAGES Routine 06/19/2021 12:00 AM EDT from Last 3 Months or Most Recently Relevant to Health Maintenance Results * POCT Urinalysis (12/05/2024 11:38 AM EST) Color, UA Yellow Clarity, UA Clear Glucose, UA Negative Bilirubin, UA Negative Ketones, UA Negative Spec Grav, UA 1.030 Blood, UA Negative Negative, None Detected pH, UA 7.0 Protein, UA Negative Urobilinogen, UA 0.2 Leukocytes, UA Negative Negative, Rare, Trace Nitrite, UA Negative Negative, None Detected Appearance, UA clear QC Media Lot # [id number] Lot# Expiration Date Urine 12/05/2024 11:3 8 AM EST Eulalia Tony LEGAL INSTRUCTOR POINT OF CARE TEST ENTER/EDIT ORDERABLES Final Result * BI MR Breast w and w/o Contrast Bilateral (04/05/2024 2:45 PM EDT) Anatomical Region Laterality Modality Breast Bilateral Magnetic Resonan ce 04/05/2024 2:45 PM EDT Narrative 04/14/2024 4:20 PM EDT ? [facility] ?[address] ?[place] [address] ? Magnetic Resonance Report ? Signed ? Patient: Kaye Araya,Carolyn ?MR# ?? : [id number] ? : 1985 ?Acct:[id number] ? Age/Sex: 38 / F ?ADM Date: 04/05/24 ? Loc: HO.MRI ? Attending Dr: Eulalia Tony LEGAL INSTRUCTOR ? Ordering Physician: Jose Bhagat MD ?? Date of Service: 04/05/24 ?? Procedure(s): MR breast BI wo/w con ?? Accession Number(s): [id number] ? cc: Jose Bhagat MD; Eulalia Tony ? EXAMINATION: ?? MR BREAST WITHOUT AND WITH CONTRAST, BILATERAL ? CLINICAL INFORMATION: ?? left breat burning sensation ? COMPARISON: ?? 05/28/2023 ? TECHNIQUE: ?? Imaging was performed with a dedicated breast coil. Prior to the ?? administration of contrast, bilateral axial T1 and bilateral axial T2 ?? weighted sequences were obtained. After the uneventful administration ?? of?8 mL of Gadavist, dynamic contrast-enhanced VIBRANT series through ?? the breasts in the axial plane were performed. Subtracted images were ?? performed and reviewed. A delayed sagittal sequence through both ?? breasts was acquired. Additionally, CAD post-processing, including ?? maximum intensity projections, 3-D reconstructions and kinetic ?? analysis, were performed an independent workstation and reviewed by the ?? interpreting radiologist is a portion of this exam. ? FINDINGS: ?? The patient's fibroglandular tissue is heterogeneously dense and ?? demonstrates significant background enhancement. ? Scattered T2 hyperintense masses in the bilateral breasts, consistent ?? with cysts. ? LEFT BREAST: No suspicious masslike or non-masslike enhancement. No ?? abnormal skin thickening or nipple retraction. Review of the T2 ?? weighted images and kinetic images reveals no additional suspicious ?? findings. ? RIGHT BREAST: No suspicious masslike or non-masslike enhancement. No ?? abnormal skin thickening or nipple retraction. Review of the T2 ?? weighted images and kinetic images reveals no additional suspicious ?? findings. ? There is no suspicious internal mammary chain or axillary adenopathy. ? Limited views of the chest and abdomen are unremarkable. ? MR/MR breast BI wo/w con ?? IMPRESSION: ?? Significant background parenchymal enhancement somewhat limits ?? evaluation of this exam. ?? No MR specific evidence of malignancy. ? ASSESSMENT: ?? LEFT BREAST: BI-RADS 1-Negative ? RIGHT BREAST: BI-RADS 1-Negative ? RECOMMENDATIONS: ?? Clinical follow-up. Continued annual mammographic surveillance. ? Dictated By: ?Jc,Hafsa ? Signed By: ?<Electronically signed by Hafsa Greene in [place]> ?04/14/24 1616 ? DD/ 1445 ? TD/TT: ? Animal Ride Manager: ? Procedure Note Donmathieuter, Image - 04/14/[address] [address] Magnetic Resonance Report Signed Patient: Cami Campbell# : [id number] : 1985Acct:[id number] Age/Sex: 38 / FADM Date: 04/05/24 Loc: HO.MRI Attending Dr: Eulalia Tony LEGAL INSTRUCTOR Ordering Physician: Jose Bahgat MD Date of Service: 04/05/24 Procedure(s): MR breast BI wo/w con Accession Number(s): [id number] cc: Jose Bhagat MD; Eulalia Tony EXAMINATION: MR BREAST WITHOUT AND WITH CONTRAST, BILATERAL CLINICAL INFORMATION: left breat burning sensation COMPARISON: 05/28/2023 TECHNIQUE: Imaging was performed with a dedicated breast coil. Prior to the administration of contrast, bilateral axial T1 and bilateral axial T2 weighted sequences were obtained. After the uneventful administration of?8 mL of Gadavist, dynamic contrast-enhanced VIBRANT series through the breasts in the axial plane were performed. Subtracted images were performed and reviewed. A delayed sagittal sequence through both breasts was acquired. Additionally, CAD post-processing, including maximum intensity projections, 3-D reconstructions and kinetic analysis, were performed an independent workstation and reviewed by the interpreting radiologist is a portion of this exam. FINDINGS: The patient's fibroglandular tissue is heterogeneously dense and demonstrates significant background enhancement. Scattered T2 hyperintense masses in the bilateral breasts, consistent with cysts. LEFT BREAST: No suspicious masslike or non-masslike enhancement. No abnormal skin thickening or nipple retraction. Review of the T2 weighted images and kinetic images reveals no additional suspicious findings. RIGHT BREAST: No suspicious masslike or non-masslike enhancement. No abnormal skin thickening or nipple retraction. Review of the T2 weighted images and kinetic images reveals no additional suspicious findings. There is no suspicious internal mammary chain or axillary adenopathy. Limited views of the chest and abdomen are unremarkable. MR/MR breast BI wo/w con IMPRESSION: Significant background parenchymal enhancement somewhat limits evaluation of this exam. No MR specific evidence of malignancy. ASSESSMENT: LEFT BREAST: BI-RADS 1-Negative RIGHT BREAST: BI-RADS 1-Negative RECOMMENDATIONS: Clinical follow-up. Continued annual mammographic surveillance. Dictated By: Hafsa Greene Signed By: <Electronically signed by Hafsa Greene in [place]> 04/14/24 1616 DD/ 1445 TD/TT: Animal Ride Manager: us Jose Philippe MD IMG MRI PROCEDURES Final Result * Hepatitis C Ab (12/15/2023 2:43 PM EDT) Hepatitis C Antibody Nonreactive Nonreactive [facility] Comment:Antibodies to HCV no t detected; does not exclude early acuteHCV infection. Blood Venous blood specimen / Unknown 12/15/2023 2:43 PM EDT 12/15/2023 4:06 PM EDT us Eli Villegas NP LAB BLOOD ORDERABLES Final Resul t [facility] [address] [place] [phone] * HIV-1/2 Antigen and Antibodies, Fourth Generation, with Reflexes (12/15/2023 2:43 PM EDT) HIV AB/AG Nonreactive Nonreactive [facility] Comment:HIV-1 p24 Ag and/or HIV-1/HIV-2 Ab not detected.A test result that is nonreactive does not exclude thepossibility of exposure to or infection with HIV-1 and/orHIV-2. Nonreactive results in this assay for individualswith prior exposure to HIV-1 and/or HIV-2 may be due toantigen and antibody levels that are below the limit ofdetection of this assay.The [employer] Alinity HIV Ag/Ab Combo assay result andsupplemental assay results should be interpreted inconjunction with the patient's clinical presentation,history and other laboratory results. If the results areinconsistent with clinical evidence, additional testing issuggested to confirm the result. Blood Venous blood specimen / Unknown 12/15/2023 2:43 PM EDT 12/15/2023 4:06 PM EDT us Eli Villegas NP LAB BLOOD ORDERABLES Final Resul t Performing Organization Address [facility]/ZIP Co de Phone Number [facility] [address] [place] [address] [phone] * HPV E6/E7 RFLX CARLOS 16 18/45 (05/16/2022 11:56 AM EDT) [facility] [facility] HPV mRNA E6/E7 rflx Not Detected Not Detected [employer] Comment: Methodology: Knockout Worker-Mediated Amplification This assay detects E6/E7 viral messenger RNA (mRNA) from 14 high-risk HPV types (16,18,31,33,35,39,45,51,52,56,58,59,66,68). Cervical sources are required for HPV testing. If a vaginal source from a patient who has had a total hysterectomy with removal of cervix was submitted, please contact the testing laboratory for alternative testing options. For additional information, please refer to http://education.[employer]/faq/SID506t2 (This link if provided for information/ educational purposes only.) THIS TEST WAS PERFORMED AT: [facility] [address] [facility] [address]RD FLOOR,[address] [place], [place] ??[address] DOT KAUFMAN MD 05/16/2022 11:5 6 AM EDT us Emma Dudley HISTORICAL/NON ORDERABLE LABS Fi nal Result [facility] [address] [place] [address], * Pap Smear (05/16/2022 12:00 AM EDT) Swab us Historical Provider LAB CYTOLOGY ORDERABLES F inal Result EXTERNAL LAB from Last 3 Months or Most Recently Relevant to Health Maintenance Insurance [facility] C3 DENTAL-[facility] MEDICAID STAND ADULT Care Teams Ob/Gyn Doctor Relationship Specialty Start Date End Date Eulalia Tony FNP [address] [place] [address] PCP - General Family Medicine 02/19/23
--- OUTSIDE RECORDS SUMMARY | 2024-12-05 15:35 | XMS_ITS | Encounter Summary ---
Author Organization [employer] Address [address] [place] [address] Care Team Providers Care Project Administrative Assistant Name Role Phone ChavoEulalia DIGITAL MARKETING PROJECT MANAGER Primary Care Provider [phone] Reason for Referral * Imaging (Routine) - Closed Specialty Diagnoses / Procedures Referred By Contac t Referred To Contact Radiology Diagnoses Mastodynia, female Procedures BI MR Breast w and w/o Contrast Bilateral Jose Bhagat MD [address] [place] [address] Phone: tel: fax: [address] Phone: tel: fax: Referral ID Status Reason Start Date Expiration Date Visits Re quested Visits Authorized [id number] Closed 03/08/2024 03/08/2025 1 1 Encounter Details Date Type Department Care Team (Late st Contact Info) Description 03/08/2024 Orders Only [facility] CH[facility] MED & PEDS [address] [place] [address] Jose Bhagat MD [address] [place] [address] Mastodynia, female (Primary Dx) Social History Tobacco Use Types [...] with others, in a hotel, in a senior care, living outside on the street, on a [...] Description 02/06/2025 1:15 PM EDT Office Visit [facility] CHC MED & PEDS [address] [place] [address] Eulalia Tony FNP [address] [place] [address] documented as of this encounter Procedures Procedure Name Priority Date/Time Associated Diagnosis Comments BI MR BREAST W AND WO CONTRAST BILATERAL Routine 04/05/2024 2:45 PM EDT Mastodynia, female documented in this encounter Results * BI MR Breast w and w/o Contrast Bilateral (04/05/2024 2:45 PM EDT) Anatomical Region Laterality Modality Breast Bilateral Magnetic Resonan ce 04/05/2024 2:45 PM EDT Narrative 04/14/2024 4:20 PM EDT ? [facility] ?[address] ?[place] [address] ? Magnetic Resonance Report ? Signed ? Patient: Carolyn Campbell ?MR# ?? : [id number] ? : 1985 ?Acct:[id number] ? Age/Sex: 38 / F ?ADM Date: 04/05/24 ? Loc: HO.MRI ? Attending Dr: Eulalia HOLLINS ? Ordering Physician: Jose Bhagat MD ?? Date of Service: 04/05/24 ?? Procedure(s): MR breast BI wo/w con ?? Accession Number(s): [id number] ? cc: Jose Bhagat MD; Eulalia Tony [...] Continued annual mammographic surveillance. ? Dictated By: ?Hafsa Greene ? Signed By: ?<Electronically signed by Hafsa Greene in OV> ?04/14/24 1616 ? DD/ 1445 ? TD/TT: ? Gas Meter Mechanic: ? Procedure Note Linnea, Image - 04/14/2024 [place] [address] Magnetic Resonance Report Signed Patient: Carolyn Campbell# : [id number] : 1985Acct:[id number] Age/Sex: 38 / FADM Date: 04/05/24 Loc: HO.MRI Attending Dr: Eulalia Tony DIGITAL MARKETING PROJECT MANAGER Ordering Physician: Jose Bhagat MD Date of Service: 04/05/24 Procedure(s): MR breast BI wo/w con Accession Number(s): [id number] cc: Jose Bhagat MD; Eulalia Tony EXAMINATION: [...] in OV> 04/14/24 1616 DD/ 1445 TD/TT: Gas Meter Mechanic: Jose Philippe MD [facility] MRI PROCEDURES Final Result documented in this encounter Visit Diagnoses Diagnosis Mastodynia, female- Primary documented in this encounter Additional Health Concerns Assessment Noted Time PHQ-9 Depression Total Score: 15 024 1:51 PM EDT documented as of this encounter Care Teams Project Administrative Assistant Relationship Specialty Start Date End Date Eulalia Tony FNP [address] [place] [address] PCP - General Family Medicine 02/19/23 documented as of this encounter
--- OUTSIDE RECORDS SUMMARY | 2024-12-05 15:35 | XMS_ITS | Clinical Summary ---
Author Organization [employer] [facility] Address [address] [place] [address] Care Team Providers Care Emissions Repair Technician Name Role Phone Unavailable Primary Care Provider Unavailabl e Social History Tobacco Use Types Packs/Day Years Used Date Smoking Tobacco: Never Assessed Comments Unknown Sex and Gender Information Value Date Recorded Sex Assigned at Not on file Legal Sex Female 11:03 PM EST Gender Identity Not on file Sexual Orientation Not on file Plan of Treatment Health Maintenance Due Date Last Done Comments Breast Cancer Screening 1985 DTaP,Tdap,and Td Vaccines (1 - Tdap) 2002 Hepatitis B Vaccines (1 of 3 - 19+ 3-dose series) 2002 Cervical Cancer Screening: P ap Smear 2004 Depression Screening 09/07/2022 HIV Screening 09/07/2022 Hepatitis C Screening 09/07/2022 Social Influencers of Health Screening 09/07/2022 COVID-19 Vaccine (2023-2 5 season) 2024 Influenza Vaccine (#1) 2024 HIB Vaccines Aged Out No longer eligi [...] on patient's age to complete this topic MMR Vaccines Aged Out No longer eligi ble based on patient's age to complete this topic Meningococcal ACWY Vaccine Aged Out N o longer eligible based on patient's age to complete this topic Meningococcal B Vacine Aged Out No lo nger eligible based on patient's age to complete this topic Pneumococcal Vaccine: Pediat rics (0 to 5 Years) and At-Risk Patients (6 to 64 Years) Aged Out No longer eligible b ased on patient's age to complete this topic RSV Immunization Patients Un keenan 20 months Aged Out No longer eligible b ased on patient's age to complete this topic Varicella Vaccines Aged Out No longer eligible based on patient's age to complete this topic
--- OUTSIDE RECORDS SUMMARY | 2024-12-05 15:35 | XMS_ITS | Encounter Summary ---
Author Organization [employer] Address [address] [place] [address] Care Team Providers Care Pie Crust Mixer Name Role Phone Eulalia Tony GURVINDER Primary Care Provider [phone] Encounter Details Date Type Department Care Team (Latest Contact Info) Description 11/08/2024 Travel Social History Tobacco Use Types Packs/Day [...] with others, in a hotel, in a half-way, living outside on the street, on a [...] Description 02/06/2025 1:15 PM EDT Office Visit [facility] CHC MED & PEDS [address] [place] [address] Eulalia Tony FNP [address] [place] [address] documented as of this encounter Visit Diagnoses Not on filedocumented in this encounter Additional Health Concerns Assessment Noted Time PHQ-9 Depression Total Score: 12 024 10:15 AM EST documented as of this encounter Care Teams Pie Crust Mixer Relationship Specialty Start Date End Date Eulalia Tony FNP [address] [place] [address] PCP - General Family Medicine 02/19/23 documented as of this encounter
--- OUTSIDE RECORDS SUMMARY | 2024-12-05 15:35 | XMS_ITS | Encounter Summary ---
Author Organization [facility] Address [address] [place] [address] [facility] [place] [address] Care Team Providers Care Customs Compliance Manager Name Role Phone Patrick Guardado MD Primary Care Provider Nia Ferris Primary Care Provider [phone] Eulalia Tony Primary Care Provider [phone] Encounter Details Date Type Department Care Team (Latest Contact Info) Description 06/19/2021 Abstract [facility] CONVERSIONS Dental, Provider, DDS Social History Tobacco Use Types Packs/Day Years [...] Description 02/06/2025 1:15 PM EDT Office Visit [facility] CHC MED & PEDS [address] [place] [address] Eulalia Tony FNP [address] [place] [address] documented as of this encounter Visit Diagnoses Not on filedocumented in this encounter Care Teams Customs Compliance Manager Relationship Specialty Start Date End Date Patrick Guardado MD PCP - General Family Medicine 07/19/19 08/31/22 Nia Edouard FNP PCP - General Family Medicine 09/01/22 02/18/23 Eulalia Tony FNP [address] [place] [address] PCP - General Family Medicine 02/19/23 documented as of this encounter
--- OUTSIDE RECORDS SUMMARY | 2024-12-05 15:35 | XMS_ITS | Encounter Summary ---
Author Organization [employer] Address [address] [facility] 7 [place] [address] Care Team Providers Care Montessori Paraprofessional Name Role Phone Eulalia Tony Primary Care Provider [phone] Reason for Visit * Reason Onset Date Comments Appointment Request 12/14/2023 Encounter Details Date Type Department Care Team ([facility] Contact Info) Description 12/14/2023 Telephone [facility] MEDICINE [address] [place] [address] Eulalia Tony FNP [address] [place] [address] Appointment Request Social History Tobacco Use Types Packs/Day Years Used Date Smoking Tobacco: Every Day Cigarettes Passive Smoke Exposure: Current Smokeless Tobacco: [...] in a car, or in a park 07/14/[address] you li ve. Do you have problems with any of the following? None of the above 07/14/2023 Food Insecurity Answer Date Recorded Within the past 12 months, y ou worried that your food would run out before you got money to buy more: Never True 08/01/2023 Within the past 12 months,th e food you bought just didn't last and you didn't have enough money to get more: Never True Transportation Answer Date Recorded In the past 12 months, has l ack of transportation kept you from medical appts, meetings, work or from getting things needed for daily living? No 08/01/2023 Utilities Answer Date Recorded In the past 12 months, has t he electric, gas, oil or water company threatened to shut off services in your home? No 08/01/2023 Depression Answer Date Recorded Patient Health Questionnaire-2 Score 3 12/15/2023 Comments Unknown Sex and Gender Information Value Date Recorded Sex Assigned at Female 08/04/2022 10:16 AM EDT Legal Sex Female 10:16 AM EDT Gender Identity Female 08/04/2022 10:16 AM EDT Sexual Orientation Straight 08/04/2022 10 :16 AM EDT documented as of this encounter Miscellaneous Notes * Telephone Encounter - Chaim Blair - 12/14/2023 10:17 AM EDT Tc from pt needs PE for work by 12/16. Sales Team Recruiter found no availability. Please contact pt at [phone]. documented in this encounter Plan of Treatment Upcoming Encounters Date Type Department Care Team ([facility] st Contact Info) Description 02/06/2025 1:15 PM EDT Office Visit [facility] MED & PEDS [address] [place] [address] Eulalia Tony FNP [address] [place] [address] documented as of this encounter Visit Diagnoses Not on filedocumented in this encounter Additional Health Concerns Assessment Noted Time PHQ-9 Depression Total Score: 7 03/27/20 23 9:58 AM EDT documented as of this encounter Care Teams Montessori Paraprofessional Relationship Specialty Start Date End Date Eulalia Tony FNP [address] [place] [address] PCP - General Family Medicine 02/19/23 documented as of this encounter
--- OUTSIDE RECORDS SUMMARY | 2024-12-05 15:35 | XMS_ITS | Encounter Summary ---
Author Organization [employer] Address [address] [place] [address] [facility] [place] [address] Care Team Providers Care Chief Credit Officer Name Role Phone Eulalia Tony Primary Care Provider [phone] Reason for Referral * Imaging (STAT) - Authorized Specialty Diagnoses / Procedures Referred By Contdanitza t Referred To Contact Radiology Diagnoses Right flank pain Procedures US Renal Complete Eulalia Tony FNP [address] [place] [address] Phone: tel: fax: [address] Phone: tel: fax: Referral ID Status Reason Start Date Expiration Date V isits Requested Visits Authorized [id number] Authorized 12/05/2024 12/05/2025 1 1 Encounter Details Date Type Department Care Team (Late st Contact Info) Description 12/05/2024 11:00 AM EST Office Visit [facility] CHC MED & PEDS [address] [place] [address] Eulalia Tony FNP [address] [place], [place] [id number] Urinary symptom or sign (Primary Dx); Right flank pain; Vaginal symptom; Chronic pelvic pain in female; Abnormal uterine bleeding Social History Tobacco Use Types Packs/Day Years Used Date Smoking Tobacco: Former Passive Smoke Exposure: Current Smokeless Tobacco: Never Passive Exposure Comments:katiana connellend Alcohol Use Standard Drinks/Week Comments Not Currently [...] with others, in a hotel, in a custodial, living outside on the street, on a [...] Mass Index 30.19 12/05/2024 10:53 AM EST documented in this encounter Progress Notes * Eulalia Tony, WELL SERVICES OPERATOR - 12/05/2024 11:00 AM EST Subjective: Carolyn Araya is a 39 y.o. female w/ PMH chronic pelvic pain, hydrosalpinx, lumbar facetarthropathy, fibroids, and mood disorder, who presents to the office for a sick visit: right flank pain and chronic pelvic pain. HPI Last PCP visit: 08/29/24 Carolyn has a history of chronic pelvic pain with a history of known fibroids, hydrosalpinx, overactive bladder, and abnormal uterine bleeding. Following with [facility] MANAGER CIVIL. Review of last consultnote from 09/14/2024 includes endometrial biopsy that demonstrated late endometrium with stromal breakdown. No indication of malignancy. AUB-plan for TXA to decrease bleeding while on menses. Not interested in hysterectomy. No longer interested in conceiving, may consider surgery in the future. She reports chronic, intermittent discomfort with urination. History of overactive bladder. Previously referred to urogyn, although appears referral canceled due to duplication with MANAGER CIVIL. Today: reports right flank pain that has worsened over the past 2-3 days. Question of hematuria. Denies any fevers, chills, nausea, vomiting, diarrhea. Baseline vaginal discharge. Denies any malodor. Review of Systems Constitutional: Negative for chills and fever. Respiratory: Negative for cough and wheezing. Cardiovascular: Negative for chest pain and palpitations. Gastrointestinal: Negative for diarrhea, nausea and vomiting. Genitourinary: Positive for dysuria (intermittent) and flank pain. Skin: Negative for wound. Psychiatric/Behavioral: Negative for suicidal ideas. Visit Vitals BP 124/84 (BP Location: Left arm, Patient Position: Sitting, BP Cuff Size: Large adult) Pulse 64 Temp 98.2 ??F (36.8 ??C) (Oral) Resp 20 Ht 5' 5 (1.651 m) Wt 181 lb 6.4 oz (82.3 kg) SpO2 99% BMI 30.19 kg/m?? OB Status Having periods Smoking Status Former BSA 1.94 m?? Physical Exam Constitutional: Appearance: Normal appearance. HENT: Head: Atraumatic. Right Ear: External ear normal. Left Ear: External ear normal. Cardiovascular: Rate and Rhythm: Normal rate and regular rhythm. Pulmonary: Effort: Pulmonary effort is normal. Breath sounds: Normal breath sounds. Abdominal: Tenderness: There is right CVA tenderness. There is no left CVA tenderness. Neurological: Mental Status: She is alert and oriented to person, place, and time. Psychiatric: Mood and Affect: Mood normal. Behavior: Behavior normal. Problem List Items Addressed This Visit Nervous Chronic pelvic pain in female Overview Following with [facility] OBGYN Hx of hydrosalpinx, AUB, fibroids, possible ovarian cyst Current Assessment & Plan - CLAM BED WORKER consult Sep 2024, discussed consideration of hysterectomy. Pt is considering. Encouraged to follow up as scheduled with [facility] OBGYN, sooner PRN. Genitourinary Abnormal uterine bleeding Overview Followed by [facility] CLAM BED WORKER - Dr. Meneses beginning of 2023, with plan to transition to [facility] fall 2023. Last pap May 2022 NILM, HPV neg 09/14/24: EMB completed at [facility] - late endometrium with stromal breakdown 03/15/24: US pelvis. 1. Large tubular structures in the bilateral adnexal regions. Pelvic MR of 11/25/2023 demonstrated dilated tubular structures in the bilateral adnexa felt to represent hematosalpinges. Discrete right ovarian tissue not visualized with confidence. 2. Endometrium is echogenic withthickness of 16 mm. 3. Fibroid uterus. Other Visit Diagnoses Urinary symptom or sign - Primary - Chronic, intermittent, reports symptoms currently baseline. UA not indicative of UTI. UA w. UC sent to lab for further eval - Right flank pain/CVA tenderness - ordered STAT right renal US for eval nephrolithiasis and hydronephrosis. Scheduled 12/06/24 at [facility]. - Check for Mgen, BV panel, NG/CT. Call with results - ED precautions reviewed Relevant Orders POCT Urinalysis (Completed) Chlamydia/N. Gonorrhoeae RNA, TMA, Urogenitial Bacterial Vaginosis Mycoplasma/Ureaplasma Panel Urinalysis, Complete, with Reflex to Culture Right flank pain Relevant Orders US Renal Complete Vaginal symptom Relevant Orders Chlamydia/N. Gonorrhoeae RNA, TMA, Urogenitial Bacterial Vaginosis Mycoplasma/Ureaplasma Panel Follow up: 2 months for PE, sooner as needed documented in this encounter Miscellaneous Notes * Assessment & Plan Note - GURVINDER Sewell - 12/05/2024 1:50 PM ESTAssociated Problem(s): Chronic pelvic pain in female - CLAM BED WORKER consult Sep 2024, discussed consideration of hysterectomy. Pt is considering. Encouraged to follow up as scheduled with [facility] OBGYN, sooner PRN. documented in this encounter Plan of Treatment Upcoming Encounters Date Type Department Care Team (Late st Contact Info) Description 02/06/2025 1:15 PM EDT Office Visit [facility] MED & PEDS [address] [place] [address] Eulalia Tony FNP [address] [place] [address] Scheduled Orders Name Type Priority Associated Diagnoses Orde r Schedule US Renal Complete Imaging STAT Right flank pain Expected: 12/05/2024, Expires: 12/05/2025 Chlamydia/N. Gonorrhoeae RNA, TMA, Urogenitial Microbiology Routine Urinary symptom or sign Vaginal symptom Ordered: 12/05/2024 Bacterial Vaginosis Microbiology Routine Urinary symptom or sign Vaginal symptom Ordered: 12/05/2024 Mycoplasma/Ureaplasma?? Panel Microbiology Routine Urinary symptom or sign Vaginal symptom Ordered: 12/05/2024 Urinalysis, Complete, with Reflex to Culture Lab Routine Urinary symptom or sign Expected: 12/05/2024 (Approximate), Expires: 12/05/2025 documented as of this encounter Procedures Procedure Name Priority Date/Time Associated Diagnosis Comments POCT URINALYSIS DIPSTICK Routine 12/05/2024 11:38 AM EST Urinary symptom or sign documented in this encounter Results * POCT Urinalysis (12/05/2024 11:38 AM [...] Urine 12/05/2024 11:3 8 AM EST Eulalia HOLLINS POINT OF CARE TEST ENTER/EDIT ORDERABLES Final Result documented in this encounter Visit Diagnoses Diagnosis Urinary symptom or sign- Primary Right flank pain Abdominal pain, unspecified site Vaginal symptom Chronic pelvic pain in female Unspecified symptom associated with female genital organs Abnormal uterine bleeding Unspecified disorder of menstruation and other abnormal bleeding from female genital tract documented in this encounter Additional Health Concerns Assessment Noted Time PHQ-9 Depression Total Score: 12 024 10:15 AM EST documented as of this encounter Care Teams Chief Credit Officer Relationship Specialty Start Date End Date Eulalia Tony FNP [address] [place] [address] PCP - General Family Medicine 02/19/23 documented as of this encounter
--- OUTSIDE RECORDS SUMMARY | 2024-12-05 15:35 | XMS_ITS | Encounter Summary ---
Author Organization [facility] Address [address] [place] [address] 7 [place] [address] Care Team Providers Care Chemical Treatment Operator Name Role Phone Patrick Guardado MD Primary Care Provider Nia Ferris Primary Care Provider [phone] Eulalia Tony Primary Care Provider [phone] Encounter Details Date Type Department Care Team (Latest Contact Info) Description 01/14/2019 Abstract [facility] CONVERSIONS Dental, Provider, DDS Social History Tobacco [...] Description 02/06/2025 1:15 PM EDT Office Visit [facility] CHC MED & PEDS [address] [place] [address] Eulalia Tony FNP [address] [place] [address] documented as of this encounter Visit Diagnoses Not on filedocumented in this encounter Care Teams Chemical Treatment Operator Relationship Specialty Start Date End Date Patrick Guardado MD PCP - General Family Medicine 07/19/19 08/31/22 Nia Edouard FNP PCP - General Family Medicine 09/01/22 02/18/23 Eulalia Tony FNP [address] [place] [address] PCP - General Family Medicine 02/19/23 documented as of this encounter
--- OUTSIDE RECORDS SUMMARY | 2024-12-05 15:35 | XMS_ITS | Encounter Summary ---
Author Organization [employer] [facility] Address [address] [place] [address] 7 [place] [address] Care Team Providers Care Pattern Maker Programer Name Role Phone Eulalia Tony Primary Care Provider [phone] Encounter Details Date Type Department Care Team ([facility] Contact Info) Description 05/04/2023 Orders Only [facility] MEDICINE [address] [place] [address] Eulalia Tony FNP [address] [place] [address] Social History Tobacco Use Types Packs/Day Years Used Date Smoking Tobacco: Every Day Cigarettes Passive Smoke Exposure: Current Smokeless Tobacco: Never Passive Exposure Comments:katiana yfriend Alcohol Use Standard Drinks/Week Comments Not Currently 0 (1 standard drink = 0.6 oz pur e alcohol) Depression Answer Date Recorded Patient Health Questionnaire-9 Score 7 03/27/2023 Depression Answer Date Recorded Patient Health Questionnaire-2 Score 2 03/27/2023 Comments Unknown Sex and Gender Information Value Date Recorded Sex Assigned at Female 08/04/2022 10:16 AM EDT Legal Sex Female 10:16 AM EDT Gender Identity Female 08/04/2022 10:16 AM EDT Sexual Orientation Straight 08/04/2022 10 :16 AM EDT documented as of this encounter Plan of Treatment Upcoming Encounters Date Type Department Care Team ([facility] Contact Info) Description 02/06/2025 1:15 PM EDT Office Visit [facility] CHC MED & PEDS [address] [place] [address] Phalen, Eulalia, [address] [address] documented as of this encounter Procedures Procedure Name Priority Date/Time Associated Diagnosis Comments CHLAMYDIA/N. GONORRHOEAE RNA, TMA, UROGENITAL Routine 05/28/2023 3:34 PM EDT BACTERIAL VAGINOSIS PANEL Routine 05/28/2023 10:03 AM EDT documented in this encounter Results * Chlamydia/N. Gonorrhoeae RNA, TMA, Urogenitial (05/28/2023 3:34 PM EDT) CT PCR NOT DETECTED Not Detect. [facility] Comment:A not detected test result does not exclude the possibilityof infection because test results can be affected byimproper specimen collection, concurrent antibiotic therapy,or the number of organisms in the specimen which may bebelow the sensitivity of the test. As with many diagnostictests, results from the Xpert CT/NG assay should beinterpreted in conjunction with other laboratory andclinical data available to the clinician.Xpert CT/NG performance has not been evaluated in patientsless than 14 years of age. The assay should not be used forthe evaluationof suspected sexual abuse or for other medico-legalindications. Additional testing is recommended in anycircumstance when false positive or false negative resultscould lead to adverse medical, social or psychologicalconsequences. NG PCR NOT DETECTED Not Detect. [facility] Comment:A not detected test result does not exclude the possibilityof infection because test results can be affected byimproper specimen collection, concurrent antibiotic therapy,or the number of organisms in the specimen which may bebelow the sensitivity of the test. As with many diagnostictests, results from the Xpert CT/NG assay should beinterpreted in conjunction with other laboratory andclinical data available to the clinician.Xpert CT/NG performance has not been evaluated in patientsless than 14 years of age. The assay should not be used forthe evaluationof suspected sexual abuse or for other medico-legalindications. Additional testing is recommended in anycircumstance when false positive or false negative resultscould lead to adverse medical, social or psychologicalconsequences. 05/28/2023 3:34 PM EDT 05/29/2023 5:34 AM EDT Narrative [facility] - 05/29/2023 5:35 AM EDT Vaginal [facility] Exter nal Provider LAB MICROBIOLOGY - GENERAL ORDERABLES Final Result Performing Organization Address [facility] Co de Phone Number [facility] [address] [place] [address] [phone] * Bacterial Vaginosis (05/28/2023 10:03 AM EDT) Trichomonas DNA Probe Negative Negative [facility] Gardnerella DNA Probe Negative Negative [facility] Bhargavi DNA Probe Negative Negative [facility] 05/28/2023 10:0 3 AM EDT 05/29/2023 10:10 AM EDT [facility] Exter nal Provider LAB MICROBIOLOGY - GENERAL ORDERABLES Final Result Performing Organization Address [facility] de Phone Number [facility] [address] [place] [phone] documented in this encounter Visit Diagnoses Not on filedocumented in this encounter Additional Health Concerns Assessment Noted Time PHQ-9 Depression Total Score: 7 03/27/20 9:58 AM EDT documented as of this encounter Care Teams Pattern Maker Programer Relationship Specialty Start Date End Date Eulalia Tony FNP [address] [place] [phone] PCP - General Family Medicine 02/19/23 documented as of this encounter
[2024-12-05 16:05] LABS: CT PCR NOT DETECTED (Not Detect.); NG PCR NOT DETECTED (Not Detect.)
[2024-12-05 16:16] LABS: Bacterial Vaginosis PCR NEGATIVE (Negative); Candida Group PCR DETECTED (Not Detect); Candida glab krusei PCR NOT DETECTED (Not Detect); Trichomonas vaginalis PCR NOT DETECTED (Not Detect)
[2024-12-21 13:57] LABS: Mycoplasma genitalium RNA NOT DETECTED; Mycoplasma hominis PCR NOT DETECTED; Ureaplasma parvum PCR NOT DETECTED; Ureaplasma urealyticum PCR NOT DETECTED
== END 2024-12-05 13:19 | disposition home or self-care (01) ==
LOC: HO.CHCLDS 13:18
PROVIDERS: Visit Provider Registered Nurse
DX: R39.9 Unspecified symptoms and signs involving the genitourinary system (principal); N94.9 Unspecified condition associated with female genital organs and menstrual cycle
CPT/HCPCS: 81515; 87491; 87563; 87591; 87798

== ENCOUNTER 2024-12-06 07:39 | Outpatient (REF) | payer MEDICAID, SELFPAY ==
--- NOTE | ~2024-12-06 | US_ITS ---
CLINICAL HISTORY: 39 y o F with right CVA tenderness, please eval for nephrolithiasis and hy US Renal Comparison: US/SR - US RENAL BI - 05/25/23 08:13 EDT Findings: Right kidney normal size and echotexture, 10.5 cm length. Left kidney normal size and echotexture, 10.6 cm length. No collecting system dilatation of either kidney. Normal color Doppler. IMPRESSION: 1. Normal kidneys. This document has been electronically signed by: Kellen Robles MD on 12/06/2024 14:56:52
--- OUTSIDE RECORDS SUMMARY | 2024-12-06 07:42 | XMS_ITS | Encounter Summary ---
Author Organization [employer] Address [address] [place] [address] [address] [place] [address] Care Team Providers Care Commercial Litigation Associate Name Role Phone Eulalia Tony Primary Care Provider [phone] Reason for Referral * Imaging (STAT) - Authorized Specialty Diagnoses / Procedures Referred By Contdanitza t Referred To Contact Radiology Diagnoses Right flank pain Procedures US Renal Complete Eulalia Tony FNP [address] [place] [address] Phone: tel: fax: [address] Phone: tel: fax: Referral ID Status Reason Start Date Expiration Date V isits Requested Visits Authorized [id number] Authorized 12/05/2024 12/05/2025 1 1 Encounter Details Date Type Department Care Team (Late st Contact Info) Description 12/05/2024 11:00 AM EST Office Visit [facility] CHC MED & PEDS [address] [place] [address] Eulalia Tony FNP [address] [place], [place] [phone] Urinary symptom or sign (Primary Dx); Right [...] with others, in a hotel, in a retirement, living outside on the street, on a [...] this encounter Progress Notes * Eulalia Tony, SPOUTING INSTALLER - 12/05/2024 11:00 AM EST Subjective: Carolyn [...] bladder, and abnormal uterine bleeding. Following with [facility] PHYSICAL SCIENCE AIDE. Review of last consultnote from 09/14/2024 includes [...] appears referral canceled due to duplication with PHYSICAL SCIENCE AIDE. Today: reports right flank pain that has [...] pelvic pain in female Overview Following with [facility] OBGYN Hx of hydrosalpinx, AUB, fibroids, possible ovarian cyst Current Assessment & Plan - LIVING COACH consult Sep 2024, discussed consideration of hysterectomy. Pt is considering. Encouraged to follow up as scheduled with [facility] OBGYN, sooner PRN. Genitourinary Abnormal uterine bleeding Overview Followed by [facility] LIVING COACH - Dr. Meneses beginning of 2023, with plan to transition to [facility] fall 2023. Last pap May 2022 NILM, HPV neg 09/14/24: EMB completed at [facility] - late endometrium with stromal breakdown 03/15/24: [...] eval nephrolithiasis and hydronephrosis. Scheduled 12/06/24 at [facility]. - Check for Mgen, BV panel, NG/CT. [...] Problem(s): Chronic pelvic pain in female - LIVING COACH consult Sep 2024, discussed consideration of hysterectomy. Pt is considering. Encouraged to follow up as scheduled with [facility] OBGYN, sooner PRN. documented in this encounter Plan of Treatment Upcoming Encounters Date Type Department Care Team (Late st Contact Info) Description 02/06/2025 1:15 PM EDT Office Visit [facility] MED & PEDS [address] [place] [address] Eulalia Tony FNP [address] [place] [address] Scheduled Orders Name Type Priority Associated Diagnoses Orde r Schedule US Renal Complete Imaging STAT Right flank pain Expected: 12/05/2024, Expires: 12/05/2025 Mycoplasma/Ureaplasma ??Panel Microbiology Routine Urinary symptom or sign Vaginal symptom Ordered: 12/05/2024 Urinalysis, Complete, with Reflex to Culture Lab Routine Urinary symptom or sign Expected: 12/05/2024 (Approximate), Expires: 12/05/2025 documented as of this encounter Procedures Procedure Name Priority Date/Time Associated Diagnosis Comments BACTERIAL VAGINOSIS PANEL Routine 12/05/2024 12:00 PM EST Urinary symptom or sign Vaginal symptom CHLAMYDIA/N. GONORRHOEAE RNA, TMA, UROGENITAL Routine 12/05/2024 12:00 PM EST Urinary symptom or sign Vaginal symptom POCT URINALYSIS DIPSTICK Routine 12/05/2024 11:38 AM EST Urinary symptom or sign documented in this encounter Results * (ABNORMAL) Bacterial Vaginosis (12/05/2024 12:00 PM EST) Pathologist [facility] TRICHOMONAS VAGINALIS DETECTION BY PCR NOT DETECTED Not Detect [facility] BACTERIAL VAGINOSIS DETECTION BY PCR NEGATIVE Negative [facility] Comment:The BV organism targ ets of the Xpert Xpress MVP test can becommensal in women; Xpert Xpress MVP positive results forbacterial vaginosis should be considered in conjunction withother clinical and patient information to determine thedisease status. Organisms that are not detected by the XpertXpress MVP test have also been reported to be associatedwith BV and aerobic vaginitis.The Xpert Xpress MVP test performance has not been evaluatedin patients under the age of 14. BHARGAVI GROUP DETECTION BY PCR DETECTED(A) Not Detect [facility] Bhargavi glab krusei PCR NOT DETECTED Not Detect [facility] Swab Vaginal structure / Unknown 12/05/2024 12:00 PM EST 12/05/2024 2:19 PM EST Eulalia Tony [facility] MICROBIOLOGY - GENERAL ORD ERABLES Final Result [facility] [address] [place] [phone] * Chlamydia/N. Gonorrhoeae RNA, TMA, Urogenitial (12/05/2024 12:00 PM EST) Pathologist [facility] CT PCR NOT DETECTED Not Detect. [facility] Comment:A not detected test result [...] psychologicalconsequences. NG PCR NOT DETECTED Not Detect. [facility] Comment:A not detected test result [...] lead to adverse medical, social or psychologicalconsequences. Swab (Vaginal Swab) 12/05/2024 12:00 PM EST 12/05/2024 2:19 PM EST Narrative [facility] - 12/05/2024 4:05 PM EST Vaginal Eulalia Tony [facility] MICROBIOLOGY - GENERAL ORD ERABLES Final Result [facility] [address] [place] [phone] * POCT Urinalysis (12/05/2024 11:38 AM EST) [...] documented as of this encounter Care Teams Commercial Litigation Associate Relationship Specialty Start Date End Date Eulalia Tony FNP [address] [place] [phone] PCP - General Family Medicine 02/19/23 documented as of this encounter
--- OUTSIDE RECORDS SUMMARY | 2024-12-06 07:42 | XMS_ITS | Encounter Summary ---
Author Organization [employer] [facility] Address [address] [place] [address] [address] [place] [address] Care Team Providers Care Dial Refinisher Name Role Phone Patrick Guardado MD Primary Care Provider Nia Ferris Primary Care Provider [phone] Eulalia Tony Primary Care Provider [phone] Encounter Details Date Type Department Care Team (Latest Contact Info) Description 06/19/2021 Abstract [facility] CONVERSIONS Dental, Provider, DDS Social History [...] Description 02/06/2025 1:15 PM EDT Office Visit [facility] CHC MED & PEDS [address] [place] [address] Eulalia Tony FNP [address] [place] [address] documented as of this encounter Visit Diagnoses Not on filedocumented in this encounter Care Teams Dial Refinisher Relationship Specialty Start Date End Date Patrick Guardado MD PCP - General Family Medicine 07/19/19 08/31/22 Nia Edouard FNP PCP - General Family Medicine 09/01/22 02/18/23 Eulalia Tony FNP [address] [place] [address] PCP - General Family Medicine 02/19/23 documented as of this encounter
--- OUTSIDE RECORDS SUMMARY | 2024-12-06 07:42 | XMS_ITS | Encounter Summary ---
Author Organization [employer] Address [address] [facility] 7 [place] [address] Care Team Providers Care Casino Duty Manager Name Role Phone PapitoEulalia calvo GURVINDER Primary Care Provider [phone] Encounter Details Date Type Department Care Team ([facility] st Contact Info) Description 11/08/2024 10:00 AM EST Office Visit [facility] CHC MED & PEDS [address] [place] [address] Marie Torrez MD [address] [place] [address] dermatosis papulosa nigra (Primary Dx) Social History [...] with others, in a hotel, in a chcf, living outside on the street, on a [...] bladder Mood disorder ([facility]) Smoker Healthcare maintenance Ovarian cyst Hydrosalpinx Mastodynia, [...] Upcoming Encounters Date Type Department Care Team ([facility] st Contact Info) Description 02/06/2025 1:15 PM EDT Office Visit [facility] MED & PEDS [address] [place] [address] Eulalia Tony FNP [address] [place] [address] documented as of this encounter Visit Diagnoses Diagnosis dermatosis papulosa nigra- Primary documented in this encounter Additional Health Concerns Assessment Noted Time PHQ-9 Depression Total Score: 12 024 10:15 AM EST documented as of this encounter Care Teams Casino Duty Manager Relationship Specialty Start Date End Date Eulalia Tony FNP [address] [place] [address] PCP - General Family Medicine 02/19/23 documented as of this encounter
--- OUTSIDE RECORDS SUMMARY | 2024-12-06 07:42 | XMS_ITS | Encounter Summary ---
Author Organization [employer] [facility] Address [address] [place] [address] 7 [place] [address] Care Team Providers Care County Ordinary Name Role Phone Patrick Guardado MD Primary Care Provider Nia Ferris Primary Care Provider [phone] Eulalia Tony Primary Care Provider [phone] Encounter Details Date Type Department Care Team (Latest Contact Info) Description 01/14/2019 Abstract [facility] CONVERSIONS Dental, Provider, DDS Social History [...] Description 02/06/2025 1:15 PM EDT Office Visit [facility] CHC MED & PEDS [address] [place] [address] Eulalia Tony FNP [address] [place] [address] documented as of this encounter Visit Diagnoses Not on filedocumented in this encounter Care Teams [place] [employer] Relationship Specialty Start Date End Date Patrick Guardado MD PCP - General Family Medicine 07/19/19 08/31/22 Nia Edouard FNP PCP - General Family Medicine 09/01/22 02/18/23 Eulalia Tony FNP [address] [place] [phone] PCP - General Family Medicine 02/19/23 documented as of this encounter
--- OUTSIDE RECORDS SUMMARY | 2024-12-06 07:42 | XMS_ITS | Encounter Summary ---
Author Organization [employer] Address [address] [facility] [address] [place] [address] Care Team Providers Care Marble Machine Tender Name Role Phone Eulalia Tony GURVINDER Primary Care Provider [phone] Encounter Details Date Type Department Care Team [...] with others, in a hotel, in a residential, living outside on the street, on a [...] Description 02/06/2025 1:15 PM EDT Office Visit [facility] CHC MED & PEDS [address] [place] [address] Eulalia Tony FNP [address] [place] [address] documented as of this encounter Visit Diagnoses Not on filedocumented in this encounter Additional Health Concerns Assessment Noted Time PHQ-9 Depression Total Score: 12 024 10:15 AM EST documented as of this encounter Care Teams Marble Machine Tender Relationship Specialty Start Date End Date Eulalia Tony FNP [address] [place] [address] PCP - General Family Medicine 02/19/23 documented as of this encounter
--- OUTSIDE RECORDS SUMMARY | 2024-12-06 07:42 | XMS_ITS | Clinical Summary ---
Author Organization [employer] Address 75 [facility] 7 [place] [address] Care Team Providers Care Moving Worker Name Role Phone Eulalia Tony GURVINDER Primary Care Provider [phone] Allergies Active Allergy Reactions Criticality Noted Date [...] in female 06/12/2024 Overview (12/05/2024): Following with [facility] OBGYN Hx of hydrosalpinx, AUB, fibroids, possible ovarian cyst Assessment & Plan (12/05/2024 1:50 PM EST): - DIRECTOR OF COMMUNITY CENTER consult Sep 2024, discussed consideration of hysterectomy. Pt is considering. Encouraged to follow up as scheduled with [facility] OBGYN, sooner PRN. Abnormal uterine bleeding 06/12/2024 Overview (12/05/2024): Followed by [facility] DIRECTOR OF COMMUNITY CENTER - Dr. Meneses beginning of 2023, with plan to transition to [facility] fall. Last pap May 2022 NILM, HPV neg 09/14/24: EMB completed at [facility] - late endometrium with stromal breakdown [...] joint dysfunction 02/23/2024 Overview (06/12/2024): Following with [facility] Pain Management - Dr. Buchanan Recommendation per consult December 2023 for diagnostic SI joint injection with local anesthesia, and SI joint compression belt 02/25/24: Diagnostic SIJ injection (right): 50% pain relief. 03/31/24: Therapeutic SIJ injection (right): 70% pain relief Assessment & Plan (09/04/2024 9:01 PM EST): - Referred to physical therapy by [facility] Pain Management (reports consult scheduled for 09/09/24) - Scheduled for repeat right therapeutic SI joint injection Fibroid 02/22/2024 Overview (02/22/2024): 11/25/23: MRI pelvis wo/w contrast ordered by Dr. Meneses. Impression: pedunculated anterior subserosal fibroid measures 2.3 x 2.3 x 2.3 cm. Bilateral hematosalpinx. Per DIRECTOR OF COMMUNITY CENTER consult December 2023 - discussed findings as [...] Physical therapy sessions w/o noted improvement - [facility] Pain management: consult December 2023 with diagnosis [...] sessions w/o noted improvement - Referral to [facility] Pain Management on 12/08/23 for further eval Cont with symptomatic management at home, reviewed red flag symptoms Hydrosalpinx 08/22/2023 Overview (08/22/2023): ?? Chronic hydrosalpinx of left ovary noted CT Urogram Jun 2023 ?? Following with [facility] OBGYN Assessment & Plan (12/08/2023 2:40 PM [...] TTP lateral left breast -Continues following with early breastfeeding care specialist -Offered MRI left breast for further eval, but pt declines at this time -ED/urgent care precautions reviewed Ovarian cyst 06/26/2023 Assessment & Plan (06/26/2023 9:06 PM EDT): -Following with [facility] DIRECTOR OF COMMUNITY CENTER INEZ Downing. Referred to [facility] for complex ovarian cyst in May 2023. -Upcoming CT scheduled 07/01/23 likely ordered by [facility] DIRECTOR OF COMMUNITY CENTER US completed 06/23/23 with the following impression: [...] as pharmacomtherapy, [facility] smoking cessation group, and [facility] pharmacy smoking cessation clinic ?? Pre-contemplation phase Assessment & Plan (06/26/2023 9:14 PM EDT): ?? Currently smoking 2 cigg/day ?? Encouraged smoking cessation resources such as pharmacomtherapy, [facility] smoking cessation group, and [facility] pharmacy smoking cessation clinic Assessment & Plan (03/28/2023 2:07 PM EDT): ?? Currently smoking 2 cigg/day ?? 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 Colonoscopy: routine screening at 43 y/o Dental: [facility] Dental referral 02/22/24 BMD: starting at 63 y/o Assessment & Plan (12/15/2023 4:20 PM EDT): Pt utd with routine screening including pap, mammogram, requesting blood work today. Ordered , work requires TB screen Assessment & Plan (03/28/2023 2:07 PM EDT): Routine Health Maintenance Optometry: discuss at follow up Dental: [facility] Dental BMD: starting at 63 y/o Outstanding IZ: pneumococcal administered today, declined COVID bivalent Routine Cancer Screening Breast CA: Routine screening starting at 40 y/o Cervical CA: December 2018 NILM HPV neg Colon CA: routine screening starting at 45 y/o Infertility of tubal origin 03/27/2023 Assessment & Plan (03/28/2023 2:00 PM EDT): -Previously following with [facility], currently following [facility] DIRECTOR OF COMMUNITY CENTER -Suspect bilateral hydrosalpinx -Previously discussed option for IVF as pt expressed interest in conceiving. However, declines IVF at this time. Overactive bladder 03/27/2023 Assessment & Plan (03/27/2023 7:24 AM EDT): Followed by [facility] Urology (previously [facility]) Tx with [facility] Trichilemmal cyst [...] Description 12/05/2024 11:00 AM EST Office Visit [facility] [address] [place] [address] Eulalia Tony FNP Urinary symptom or sign (Primary Dx); Right flank pain; Vaginal symptom; Chronic pelvic pain in female; Abnormal uterine bleeding 12/05/2024 Travel 12/05/2024 Telephone [facility] MED[facility] [address] [place] [address] Eulalia Tony FNP Nurse Triage 11/08/2024 10:00 AM EST Office Visit [facility] [address] [place] [address] Marie Torrez MD dermatosis papulosa nigra (Primary [...] with others, in a hotel, in a assisted, living outside on the street, on a [...] 1:15 PM EDT Office Visit [facility] [address] [place] [address] Eulalia Tony, MAMMOGRAPHY TECH [address] [place] [address] Health Maintenance Due Date Last Done Comments [...] Recently Relevant to Health Maintenance Results * (ABNORMAL) Bacterial Vaginosis (12/05/2024 12:00 PM EST) TRICHOMONAS VAGINALIS DETECTION BY PCR NOT DETECTED Not Detect [facility] BACTERIAL VAGINOSIS DETECTION BY PCR NEGATIVE Negative [facility] Comment:The BV organism targ ets [...] GROUP DETECTION BY PCR DETECTED(A) Not Detect [facility] Bhargavi glab krusei PCR NOT DETECTED Not Detect [facility] Swab Vaginal structure / Unknown 12/05/2024 12:00 PM EST 12/05/2024 2:19 PM EST Eulalia Tony [facility] MICROBIOLOGY - GENERAL ORD ERABLES Final Result [facility] [address] [place] [address] [phone] * Chlamydia/N. Gonorrhoeae RNA, TMA, Urogenitial (12/05/2024 12:00 PM EST) CT PCR NOT DETECTED Not Detect. [facility] Comment:A not detected test result [...] psychologicalconsequences. NG PCR NOT DETECTED Not Detect. [facility] Comment:A not detected test result [...] PM EST 12/05/2024 2:19 PM EST Narrative [facility] - 12/05/2024 4:05 PM EST Vaginal Eulalia Tony [facility] MICROBIOLOGY - GENERAL ORD ERABLES Final Result [facility] [address] [facility] [place] [address] [phone] * POCT Urinalysis (12/05/2024 11:38 AM [...] Urine 12/05/2024 11:3 8 AM EST Eulalia SALAZARP POINT OF CARE TEST ENTER/EDIT ORDERABLES Final Result * BI MR Breast w and w/o Contrast Bilateral (04/05/2024 2:45 PM EDT) Anatomical Region Laterality Modality Breast Bilateral Magnetic Resonan ce 04/05/2024 2:45 PM EDT Narrative 04/14/2024 4:20 PM EDT ? [facility] ?[address] ?[place] [address] ? Magnetic Resonance Report ? Signed ? Patient: Kaye Araya,Carolyn ?MR# ?? : [id number] ? : 1985 ?Acct:[id number] ? Age/Sex: 38 / F ?ADM Date: 07/02/24 ? Loc: HO.MRI ? Attending Dr: Eulalia Phalen MAMMOGRAPHY TECH ? Ordering Physician: Jose Bhagat MD ?? Date of Service: 04/05/24 ?? Procedure(s): MR breast BI wo/w con ?? Accession Number(s): [id number] ? cc: Jose Bhagat MD; Eulalia Tony [...] 1616 ? DD/ 1445 ? TD/TT: ? Chemical Production Machine Operator: ? Procedure Note Donotuseinterpreter, Image - 04/14/[address] [address] Magnetic Resonance Report Signed Patient: Carolyn CampbellMR# : [id number] : 1985Acct:[id number] Age/Sex: 38 / FADM Date: 04/05/24 Loc: HO.MRI Attending Dr: Eulalia Tony MAMMOGRAPHY TECH Ordering Physician: Jose Bhagat MD Date of Service: 04/05/24 Procedure(s): MR breast BI wo/w con Accession Number(s): [id number] cc: Jose Bhagat MD; Eulalia Tony MAMMOGRAPHY TECH EXAMINATION: MR BREAST WITHOUT AND WITH CONTRAST, [...] in OV> 04/14/24 1616 DD/ 1445 TD/TT: Chemical Production Machine Operator: us Jose Philippe MD IMG MRI PROCEDURES Final Result * Hepatitis C Ab (12/15/2023 2:43 PM EDT) Hepatitis C Antibody Nonreactive Nonreactive [facility] Comment:Antibodies to HCV no t detected; does not exclude early acuteHCV infection. Blood Venous blood specimen / Unknown 12/15/2023 2:43 PM EDT 12/15/2023 4:06 PM EDT us Eli Villegas NP LAB BLOOD ORDERABLES Final Resul t [facility] [address] [place] [phone] * HIV-1/2 Antigen and Antibodies, Fourth Generation, with Reflexes (12/15/2023 2:43 PM EDT) HIV AB/AG Nonreactive Nonreactive [facility] Comment:HIV-1 p24 Ag and/or HIV-1/HIV-2 Ab not detected.A test result that is nonreactive does not exclude thepossibility of exposure to or infection with HIV-1 and/orHIV-2. Nonreactive results in this assay for individualswith prior exposure to HIV-1 and/or HIV-2 may be due toantigen and antibody levels that are below the limit ofdetection of this assay.The [employer] HIV Ag/Ab Combo assay result andsupplemental assay results should be interpreted inconjunction with the patient's clinical presentation,history and other laboratory results. If the results areinconsistent with clinical evidence, additional testing issuggested to confirm the result. Blood Venous blood specimen / Unknown 12/15/2023 2:43 PM EDT 12/15/2023 4:06 PM EDT us Eli Villegas GYROSCOPIC INSTRUMENT TESTER LAB BLOOD ORDERABLES Final Resul t [facility] [address] [place] [address] [phone] * HPV E6/E7 RFLX CARLOS 16 18/45 (05/16/2022 11:56 AM EDT) HPV mRNA E6/E7 rflx Not Detected Not Detected [facility] Comment: Methodology: Janitorial Supervisor-Mediated Amplification This assay detects E6/E7 viral messenger RNA (mRNA) from 14 high-risk HPV types (16,18,31,33,35,39,45,51,52,56,58,59,66,68). Cervical sources are required for HPV testing. If a vaginal source from a patient who has had a total hysterectomy with removal of cervix was submitted, please contact the testing laboratory for alternative testing options. For additional information, please refer to http://education.MICMALI/faq/DDH514o0 (This link if provided for information/ educational purposes only.) THIS TEST WAS PERFORMED AT: [facility] [address] [facility] [address] [place], [place] ??[phone] DOT KAUFMAN MD 05/16/2022 11:5 6 AM EDT us Emma Dudley HISTORICAL/NON ORDERABLE LABS Fi nal Result [facility] [address] * Pap Smear (05/16/2022 12:00 AM EDT) Swab us Historical Provider LAB CYTOLOGY ORDERABLES F inal Result EXTERNAL LAB from Last 3 Months or Most Recently Relevant to Health Maintenance Insurance [facility] C3 [facility]AL-[facility] MEDICAID STAND ADULT Care Teams Moving Worker Relationship Specialty Start Date End Date Eulalia Tony FNP [address] [place] [address] PCP - General Family Medicine 02/19/23
--- OUTSIDE RECORDS SUMMARY | 2024-12-06 07:42 | XMS_ITS | Encounter Summary ---
Author Organization [employer] Address [address] [place] [address] Care Team Providers Care Cardiopulmonary Technician Name Role Phone ChavoEulalia BULB PLANTER Primary Care Provider [phone] Reason for Referral * Imaging (Routine) - Closed Specialty Diagnoses / Procedures Referred By Contac t Referred To Contact Radiology Diagnoses Mastodynia, female Procedures BI MR Breast w and w/o Contrast Bilateral Jose Bhagat MD [address] [place] [address] Phone: tel: fax: [address] Phone: tel: fax: Referral ID Status Reason Start Date Expiration Date Visits Re quested Visits Authorized [id number] Closed 03/08/2024 03/08/2025 1 1 Encounter Details Date Type Department Care Team (Late st Contact Info) Description 03/08/2024 Orders Only [facility]EDS [address] [place] [address] Jose Bhagat MD [address] [place] [address] Mastodynia, female (Primary Dx) Social History Tobacco [...] Description 02/06/2025 1:15 PM EDT Office Visit [facility] [address] [place] [address] Eulalia Tony FNP [address] [place] [address] documented as of this encounter Procedures Procedure [...] EDT Narrative 04/14/2024 4:20 PM EDT ? [facility] ?[address] ?[place] [address] ? Magnetic Resonance Report ? Signed ? Patient: Carolyn Campbell ?MR# ?? : [id number] ? : 1985 ?Acct:[id number] ? Age/Sex: 38 / F ?ADM Date: 04/05/24 ? Loc: HO.MRI ? Attending Dr: Eulalia HOLLINS ? Ordering Physician: Jose Bhagat MD ?? Date of Service: 04/05/24 ?? Procedure(s): MR breast BI wo/w con ?? Accession Number(s): [id number] ? cc: Jose Bhagat MD; Eulalia Tony [...] 1616 ? DD/ 1445 ? TD/TT: ? Prevocational/Rehabilitation Counselor: ? Procedure Note Linnea, Image - 04/14/2024 [place] [address] Magnetic Resonance Report Signed Patient: Carolyn Campbell# : [id number] : 1985Acct:[id number] Age/Sex: 38 / FADM Date: 04/05/24 Loc: HO.MRI Attending Dr: Eulalia Tony BULB PLANTER Ordering Physician: Jose Bhagat MD Date of Service: 04/05/24 Procedure(s): MR breast BI wo/w con Accession Number(s): [id number] cc: Jose Bhagat MD; Eulalia Tony EXAMINATION: [...] in OV> 04/14/24 1616 DD/ 1445 TD/TT: Prevocational/Rehabilitation Counselor: Jose Philippe MD [facility] MRI PROCEDURES Final Result documented in this encounter Visit Diagnoses Diagnosis Mastodynia, female- Primary documented in this encounter Additional Health Concerns Assessment Noted Time PHQ-9 Depression Total Score: 15 024 1:51 PM EDT documented as of this encounter Care Teams Cardiopulmonary Technician Relationship Specialty Start Date End Date Eulalia Tony FNP [address] [place] [address] PCP - General Family Medicine 02/19/23 documented as of this encounter
--- OUTSIDE RECORDS SUMMARY | 2024-12-06 07:42 | XMS_ITS | Encounter Summary ---
Author Organization [employer] Address 75 [facility] 7 [place] [address] Care Team Providers Care Casino Gaming Inspector Name Role Phone Eulalia Tony Primary Care Provider [phone] Reason for Visit * Reason Onset Date Comments Nurse Triage 12/05/2024 Encounter Details Date Type Department Care Team ([facility] st Contact Info) Description 12/05/2024 Telephone [facility] [address] [place] [address] Eulalia Tony FNP [address] [place] [address] Nurse Triage Social History Tobacco Use Types [...] EST Triage call returned with BLS # [id number] Adrienne. Patient reports several months of flank [...] plan. ASK/PCP Ashlee today at 11am @ [facility]. Reviewed with patient home care recommendations and [...] acuity questions The caller accepted this outcome. [phone] [place] documented in this encounter Plan of Treatment Upcoming Encounters Date Type Department Care Team ([facility] st Contact Info) Description 02/06/2025 1:15 PM EDT Office Visit [facility] [address] [place] [address] Eulalia Tony FNP [address] [place] [address] documented as of this encounter Visit Diagnoses Not on filedocumented in this encounter Additional Health Concerns Assessment Noted Time PHQ-9 Depression Total Score: 12 024 10:15 AM EST documented as of this encounter Care Teams Casino Gaming Inspector Relationship Specialty Start Date End Date Eulalia Tony FNP [address] [place] [address] PCP - General Family Medicine 02/19/23 documented as of this encounter
--- OUTSIDE RECORDS SUMMARY | 2024-12-06 07:42 | XMS_ITS | Encounter Summary ---
Author Organization [employer] Address 75 [facility] 7t [place] [address] Care Team Providers Care Call Out Clerk Name Role Phone Eulalia Tony Primary Care Provider [phone] Encounter Details Date Type Department Care Team ([facility] st Contact Info) Description 02/24/2024 Orders Only [facility] MED [facility] PEDS [address] [place], [place] [phone] Eulalia Tony FNP [address] [place] [address] Bacterial vaginitis (Primary Dx) Social History Tobacco [...] 1:15 PM EDT Office Visit [facility] P[facility] [address] [place] [address] Eulalia Tony FNP [address] [place] [address] documented as of this encounter Visit Diagnoses Diagnosis Bacterial vaginitis- Primary Unspecified vaginitis and vulvovaginitis documented in this encounter Additional Health Concerns Assessment Noted Time PHQ-9 Depression Total Score: 15 024 1:51 PM EDT documented as of this encounter Care Teams Call Out Clerk Relationship Specialty Start Date End Date Eulalia Tony FNP [address] [place] [address] PCP - General Family Medicine 02/19/23 documented as of this encounter
--- OUTSIDE RECORDS SUMMARY | 2024-12-06 07:42 | XMS_ITS | Encounter Summary ---
Author Organization [employer] Address [address] [facility] [address] 7[address] [place] [address] Care Team Providers Care Senior Court Office Assistant Name Role Phone Eulalia Tony GURVINDER Primary Care Provider [phone] Encounter Details Date Type Department Care Team [...] Description 02/06/2025 1:15 PM EDT Office Visit [facility] MED & PEDS [address] [place] [address] Eulalia Tony FNP [address] [place] [address] documented as of this encounter Visit Diagnoses Not on filedocumented in this encounter Additional Health Concerns Assessment Noted Time PHQ-9 Depression Total Score: 12 024 10:15 AM EST documented as of this encounter Care Teams Senior Court Office Assistant Relationship Specialty Start Date End Date Eulalia Tony FNP [address] [place] [address] PCP - General Family Medicine 02/19/23 documented as of this encounter
--- OUTSIDE RECORDS SUMMARY | 2024-12-06 07:42 | XMS_ITS | Clinical Summary ---
Author Organization [facility] Address [address] [place] [address] Care Team Providers Care Pattern Attendant Name Role Phone Unavailable Primary Care Provider [...]
--- OUTSIDE RECORDS SUMMARY | 2024-12-06 07:42 | XMS_ITS | Encounter Summary ---
Author Organization [employer] Address 75 [facility] 7 [place] [address] Care Team Providers Care Exhibit Builder Name Role Phone Eulalia Tony Primary Care Provider [phone] Reason for Visit * Reason Onset Date Comments Appointment Request 12/14/2023 Encounter Details Date Type Department Care Team ([facility] Contact Info) Description 12/14/2023 Telephone [facility] MEDICINE [address] [place] [address] Eulalia Tony FNP [address] [place] [address] Appointment Request Social History Tobacco Use Types [...] with others, in a hotel, in a correction, living outside on the street, on a [...] pt needs PE for work by 12/16. Terminal Make Up Operator found no availability. Please contact pt at [phone]. documented in this encounter Plan of Treatment Upcoming Encounters Date Type Department Care Team ([facility] st Contact Info) Description 02/06/2025 1:15 PM EDT Office Visit [facility] PED[facility] [address] [place] [address] Eulalia Tony FNP [address] [place] [address] documented as of this encounter Visit Diagnoses Not on filedocumented in this encounter Additional Health Concerns Assessment Noted Time PHQ-9 Depression Total Score: 7 03/27/20 23 9:58 AM EDT documented as of this encounter Care Teams Exhibit Builder Relationship Specialty Start Date End Date Eulalia Tony FNP [address] [place] [address] PCP - General Family Medicine 02/19/23 documented as of this encounter
--- OUTSIDE RECORDS SUMMARY | 2024-12-06 07:43 | XMS_ITS | Encounter Summary ---
Author Organization [employer] [facility] Address [address] [place] [address] 7 [place] [address] Care Team Providers Care Charge Lpn Name Role Phone Eulalia Tony Primary Care Provider [phone] Encounter Details Date Type Department Care Team ([facility] Contact Info) Description 05/04/2023 Orders Only [facility] [address] [place] [address] Eulalia Tony FNP [address] [place] [address] Social History Tobacco Use Types Packs/Day Years [...] Upcoming Encounters Date Type Department Care Team ([facility] Contact Info) Description 02/06/2025 1:15 PM EDT Office Visit [facility] MED & PEDS [address] [place] [address] Phalen, Eulalia, [address] [address] documented as of this encounter Procedures Procedure Name Priority Date/Time Associated Diagnosis Comments CHLAMYDIA/N. GONORRHOEAE RNA, TMA, UROGENITAL Routine 05/28/2023 3:34 PM EDT BACTERIAL VAGINOSIS PANEL Routine 05/28/2023 10:03 AM EDT documented in this encounter Results * Chlamydia/N. Gonorrhoeae RNA, TMA, Urogenitial (05/28/2023 3:34 PM EDT) CT PCR NOT DETECTED Not Detect. [facility] Comment:A not detected test result does [...] psychologicalconsequences. NG PCR NOT DETECTED Not Detect. [facility] Comment:A not detected test result does [...] PM EDT 05/29/2023 5:34 AM EDT Narrative [facility] - 05/29/2023 5:35 AM EDT Vaginal [facility] Exter nal Provider LAB MICROBIOLOGY - GENERAL ORDERABLES Final Result Performing Organization Address [facility] Co de Phone Number [facility] [address] [place] [address] [phone] * Bacterial Vaginosis (05/28/2023 10:03 AM EDT) Trichomonas DNA Probe Negative Negative [facility] Gardnerella DNA Probe Negative Negative [facility] Bhargavi DNA Probe Negative Negative [facility] 05/28/2023 10:0 3 AM EDT 05/29/2023 10:10 AM EDT [facility] Exter nal Provider LAB MICROBIOLOGY - GENERAL ORDERABLES Final Result Performing Organization Address [facility] de Phone Number [facility] [address] [place] [phone] documented in this encounter Visit Diagnoses Not on filedocumented in this encounter Additional Health Concerns Assessment Noted Time PHQ-9 Depression Total Score: 7 03/27/20 9:58 AM EDT documented as of this encounter Care Teams Charge Lpn Relationship Specialty Start Date End Date Eulalia Tony FNP [address] [place] [address] PCP - General Family Medicine 02/19/23 documented as of this encounter
== END 2024-12-06 07:40 | disposition home or self-care (01) ==
LOC: HO.US 07:39
PROVIDERS: PCP Registered Nurse; Visit Provider Registered Nurse
DX: R10.9 Unspecified abdominal pain (principal)
CPT/HCPCS: 76775

== ENCOUNTER → 2024-12-06 08:01 | Outpatient (BNV) | payer MEDICAID, SELFPAY | PROVIDERS: PCP Registered Nurse; Visit Provider Radiology Diagnostic Radiology | DX: R10.817 Generalized abdominal tenderness (principal) | CPT/HCPCS: 76775 ==

== ENCOUNTER 2025-03-11 12:49 | Outpatient (REF) | payer MEDICAID, SELFPAY ==
--- NOTE | ~2025-03-11 | MR_ITS ---
EXAMINATION: MR PELVIS WITHOUT THEN WITH IV CONTRAST HISTORY: MULTILOCULATE CYST LESION OF THE CUL DE SAC. TECHNIQUE: Axial T1, fat-suppressed T1, and T2, and sagittal and coronal T2-weighted MR images of the pelvis were obtained. Subsequently, axial and sagittal fat-suppressed T1-weighted images were obtained after the intravenous administration of 8 mm Gadavist. COMPARISON: Comparison is made with the prior examination dated 11/25/2023. Correlation is also made with an outside CT of the pelvis from [facility] dated 01/10/2025. FINDINGS: The uterus measures approximately 9.2 x 3.7 x 5.5 cm in size. There is a pedunculated anterior fibroid measuring 3.5 x 3.1 x 3.7 cm. A right fundal fibroid is also noted measuring 11 mm in diameter. The junctional zone is preserved. The cervix is unremarkable. The endometrium is unremarkable. The right ovary measures approximately 1.9 x 1.3 x 1.7 cm. The left ovary measures approximately 1.9 x 1.7 x 2.1 cm. Again seen are tubular T2 hyperintense masses in both adnexa, which demonstrate mildly increased T1 signal intensity, consistent with proteinaceous content. These are consistent with hydrosalpinges and measure up to 3.8 cm in diameter on the right and 3.6 cm in diameter on the left. There is no free fluid in the pelvis. There is no pelvic lymphadenopathy. The urinary bladder is collapsed. The visualized bones demonstrate normal marrow signal intensity. MR/MR pelvis wo/w con IMPRESSION: 1. Fibroid uterus as described. 2. Bilateral hydrosalpinx. Electronically signed by: Maykel Reyes MD 03/13/2025 08:02 AM EDT
[2025-03-11] MEDS: gadobutroL 10 ML VIAL IVPUSH (13:29)
== END 2025-03-11 12:50 | disposition home or self-care (01) ==
LOC: HO.MRI 12:49
PROVIDERS: PCP Registered Nurse; Visit Provider Internal Medicine
DX: N83.8 Other noninflammatory disorders of ovary, fallopian tube and broad ligament (principal)
CPT/HCPCS: 72197; A9585

== ENCOUNTER → 2025-03-11 12:49 | Outpatient (BNV) | payer MEDICAID, SELFPAY | PROVIDERS: PCP Registered Nurse; Visit Provider Radiology Diagnostic Radiology | DX: D25.9 Leiomyoma of uterus, unspecified (principal); N70.13 Chronic salpingitis and oophoritis | CPT/HCPCS: 72197 ==

== ENCOUNTER 2025-05-25 10:16 | Outpatient (REF) | payer MEDICAID, SELFPAY ==
[2025-05-25 11:31] LABS: MANUAL DIFF FLAG NO
[2025-05-25 11:38] LABS: Hematocrit 40.1 % (37.0-47.0); Hemoglobin 12.9 g/dl (12.0-16.0); Imm Gran Abs Auto 0.03 X10*3/uL (0.00-0.03); Imm Gran Pct Auto 0.3 % (0.0-0.4); Lymphocytes Absolute Auto 2.6 X10*3/uL (1.2-4.9); Mean Corpuscular HGB Conc 32.2 g/dl (31.0-35.0); Mean Corpuscular Hemoglobin 29.0 pg (27.0-33.0); Mean Corpuscular Volume 90.1 fL (80.0-98.0); NRBC Abs Auto 0.000 X10*3/uL (0.0-0.012); NRBC Pct Auto 0.0 /100WBC (0.0-0.2); Platelet Count 263 X10*3/uL (160-400); Red Blood Count 4.45 X10*6/uL (4.20-5.50); White Blood Count 9.2 X10*3/uL (4.8-10.8)
[2025-05-25 11:46] LABS: Hemoglobin A1C 126.6109 umol/L; Total Hemoglobin (HGBA1C) 3441.1382 umol/L
--- OUTSIDE RECORDS SUMMARY | 2025-05-25 11:46 | XMS_ITS | Clinical Summary ---
Author Organization [employer] Address [address] [place] [address] [address] [place] [address] Care Team Providers Care Tie Inspector Name Role Phone PapitoEulalia calvo GURVINDER Primary Care Provider [phone] Allergies Active Allergy Reactions Criticality Noted Date Comments Penicillins 10/09/2017 Other reaction(s): Rash Medications polyvinyl alcohol (Liquifilm Tears) 1.4 % ophthalmic solution one drop in each eye 3-4 times per day 9 Active tolterodine LA (Detrol LA) 2 MG 24 hr capsule take 1 capsule by oral route every day 2 Active cholecalcifero l (Vitamin D-3) 50 MCG (1999) tablet take 1 tablet by oral route [...] x 7 days 21 tablet 4 Active omeprazole (PriLOSEC) [address] capsuleIndicat ions:Dyspepsia TAKE ONE CAPSULE BY MOUTH ONCE DAILY 90 capsule 1 5 Active Magnesium 400 MG capsule Take 400 mg by mouth at bedtime. 90 capsule 1 5 Active escitalopram (Lexapro) 20 MG tablet Take 20 mg by mouth Once per day. 5 Active ARIPiprazole (Abilify) 15 MG tablet Take 15 mg by mouth Once per day. 5 Active mirtazapine (Remeron) 15 MG tablet take one tablet every night at bedtime 5 Active zolpidem (Ambien) 10 MG tablet take one tablet every night at bedtime 5 Active metroNIDAZOLE (Metrogel) 0.75 % vaginal gelIndications :Bacterial Vaginosis Insert one applicator into vagina at bedtime for 5 nights 45 g 4 05/14/20 25 Discontinu ed(Therapy completed) simethicone (Mylicon) 125 MG chewable tabletIndicati ons:Bloating Chew 1 tablet (125 mg) every 6 (six) hours if needed for flatulence. 120 tablet 2 5 05/01/20 25 Active Problems Problem Noted Date Diagnosed Date Chronic pelvic pain in female 06/12/2024 Overview (12/05/2024): Following with [facility] Hx of hydrosalpinx, AUB, fibroids, possible ovarian cyst Assessment & Plan (12/05/2024 1:50 PM EST): - WEBSITE/BLOG EDITOR consult Sep 2024, discussed consideration of hysterectomy. Pt is considering. Encouraged to follow up as scheduled with [facility] OBG[facility], sooner PRN. Abnormal uterine bleeding 06/12/2024 Overview (12/05/2024): Followed by [facility]OG [facility] - Dr. Meneses beginning of 2023, with plan to transition to [facility] fall. Last pap May 2022 NILM, HPV neg 09/14/24: EMB completed at [facility] - late endometrium with stromal breakdown [...] joint dysfunction 02/23/2024 Overview (06/12/2024): Following with [facility] - Dr. Buchanan Recommendation per consult December 2023 for diagnostic SI joint injection with local anesthesia, and SI joint compression belt 02/25/24: Diagnostic SIJ injection (right): 50% pain relief. 03/31/24: Therapeutic SIJ injection (right): 70% pain relief Assessment & Plan (09/04/2024 9:01 PM EST): - Referred to physical therapy by [facility] (reports consult scheduled for 09/09/24) - Scheduled for repeat right therapeutic SI joint injection Fibroid 02/22/2024 Overview (05/14/2025): 11/25/23: MRI pelvis wo/w contrast ordered by Dr. Meneses. Impression: pedunculated anterior subserosal fibroid measures 2.3 x 2.3 x 2.3 cm. Bilateral hematosalpinx. Per WEBSITE/BLOG EDITOR consult December 2023 - discussed findings as well as risk of myosarcoma (malignant muscle tumor) Plan: repeat pelvic US periodically, appt sooner if symptomatic 03/11/25: MRI Pelvis Demonstrated fibroid of the uterus and bilateral hydrosalpinx. pedunculated anterior fibroid measuring 3.5 x 3.1 x 3.7 cm. A right fundal fibroid is also noted measuring 11 mm in diameter Encouraged to follow up with [facility] Generalized abdominal pain 12/15/2023 Assessment & Plan [...] Lumbar facet arthropathy 12/08/2023 Assessment & Plan (05/14/2025 8:29 PM EDT): Lumbar XR from Aug 2023 with the following IMPRESSION: 1. No acute fracture or spondylolisthesis is seen. 2. The lower thoracic and lumbar disc spaces are well-maintained. 3. There is multi-level mild thoracolumbar spondylosis. 4. There is facet arthropathy at L5-S1. Referrals: - Physical therapy sessions w/o noted improvement - [facility]: consult December 2023 with diagnosis SI joint dysfunction. Recommended SI joint compression belt, diagnostic SI joint injection. Cont with symptomatic management at home, reviewed red flag symptoms Assessment & Plan (02/22/2024 6:41 AM EDT): Lumbar XR from Aug 2023 with the following IMPRESSION: 1. No acute fracture or spondylolisthesis is seen. 2. The lower thoracic and lumbar disc spaces are well-maintained. 3. There is multi-level mild thoracolumbar spondylosis. 4. There is facet arthropathy at L5-S1. Referrals: - Physical therapy sessions w/o noted improvement - [facility]: consult December 2023 with diagnosis [...] sessions w/o noted improvement - Referral to [facility] on 12/08/23 for further eval Cont with symptomatic management at home, reviewed red flag symptoms Hydrosalpinx 08/22/2023 Overview (05/14/2025): Chronic hydrosalpinx of left ovary noted CT Urogram Jun 2023 Following with [facility] OBGYN 03/11/25: MRI Pelvis - Demonstrated fibroid of the uterus and bilateral hydrosalpinx. pedunculated anterior fibroid measuring 3.5 x 3.1 x 3.7 cm. A right fundal fibroid is also noted measuring 11 mm in diameter Assessment & Plan (12/08/2023 2:40 PM EST): [...] TTP lateral left breast -Continues following with technical operations specialist -Offered MRI left breast for further eval, but pt declines at this time -ED/urgent care precautions reviewed Ovarian cyst 06/26/2023 Assessment & Plan (06/26/2023 9:06 PM EDT): -Following with [facility] EDITOR INEZ Downing. Referred to [facility] for complex ovarian cyst in May 2023. -Upcoming CT scheduled 07/01/23 likely ordered by [facility] WEBSITE/BLOG EDITOR US completed 06/23/23 with the following impression: 1. Persistent large bilateral adnexal tubular/complex cystic structures. Differential considerations include hydrosalpinx or paraovarian/ovarian cyst. 2. Fibroid uterus. 3. Endometrial thickness is 1.2 cm. 4. Limited visualization of the right ovary. 5. Mildly complex 1.9 cm left ovarian cyst was not previously identified. Mood disorder 03/28/2023 Assessment & Plan (05/14/2025 8:29 PM EDT): Following with psych team - therapist and psych prescriber - Dr. Pal No acute concerns, cont with current regimen Assessment & Plan (12/15/2023 4:19 PM EDT): Endorses depressed mood, but reports feels supported in therapy, has visit tomorrow Assessment & Plan (03/28/2023 2:02 PM EDT): -Followed by Dr. Garay -Continues on the following med regimen through psych: Prazosin nightly Escitalopram daily Smoker 03/28/2023 Assessment & Plan (05/14/2025 8:29 PM EDT): Currently smoking 1-3 cigg/day Encouraged smoking cessation resources such as pharmacomtherapy, [facility] smoking cessation group, and [facility] pharmacy smoking cessation clinic Pre-contemplation phase Assessment & Plan (12/15/2023 4:19 PM EDT): Motivated to quit, reviewed support options, pt opts for nicotine patch and gum, medication indication, side effects and usage reviewed, questions answered. Pt aware to call if side effects occur Assessment & Plan (08/22/2023 10:19 AM EST): Currently smoking 3 cigg/day Encouraged smoking cessation resources such as pharmacomtherapy, [facility] smoking cessation group, and [facility] pharmacy smoking cessation clinic Pre-contemplation phase Assessment & Plan (06/26/2023 9:14 PM EDT): Currently smoking 2 cigg/day Encouraged smoking cessation resources such as pharmacomtherapy, [facility] smoking cessation group, and [facility] pharmacy smoking cessation clinic Assessment & Plan (03/28/2023 2:07 PM EDT): Currently smoking 2 cigg/day Encouraged smoking cessation resources such as pharmacomtherapy, [facility] smoking cessation group, and [facility] pharmacy smoking cessation clinic Healthcare maintenance 03/28/2023 Overview (05/14/2025): Last PE: 05/12/25 Pap: 05/16/22 NILM HPV neg Mammo: MRI bilat breasts 04/05/24 BIRADS 1. Colonoscopy: routine screening at 43 y/o Dental: [facility] Dental referral 02/22/24 BMD: starting at 65 y/o Assessment & Plan (12/15/2023 4:20 PM EDT): Pt utd with routine screening including pap, mammogram, requesting blood work today. 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 However, declines IVF at this time. Overactive bladder 03/27/2023 Assessment & Plan (03/27/2023 7:24 AM EDT): Followed by [facility]viously [facility]) Tx with Detrol LA Trichilemmal cyst [...] resolve, referral to [facility] Bhargavi infection, oral 12/15/202302/03 Assessment & Plan (12/15/2023 4:22 PM EDT): medication indication, side effects and usage reviewed, questions answered. Pt aware to call if side effects occur Dental plaque 03/13/2023 03/28/2023 Encounters Date Type Department Care Team Description 05/12/2025 9:30 AM EDT Office Visit [facility] [address], [place] [phone] Eulalia Tony FNP Encounter for routine history and physical examination of adult (Primary Dx); Healthcare maintenance; Hydrosalpinx; Encounter for screening mammogram for malignant neoplasm of breast; Dietary counseling; Exercise counseling; Fibroid; Mood disorder (CMS/HCC); Lumbar facet arthropathy; Smoker; Pain in both lower extremities 05/12/2025 Travel 05/05/2025 Patient Outreach [facility] [address] [place], [place] [phone] Eulalia Tony FNP Pre-visit Planning (SDOH screening positive and Tobacco screening negative) 03/27/2025 Refill [facility] [address], [place] [phone] Marie Torrez MD Dyspepsia 03/13/2025 Results Follow-Up [facility] [address], [place] [phone] Tashia Cerda, GISELA MR Pelvis w/ and w/o Contrast from Last 3 Months Immunizations Immunization Administration Dates Next Due [employer] Covid-19 Vaccine 12+ 11/09/2021 Pfizer Covid-19 Vaccine 12+ reji-sucrose (Booth C ap) 11/09/2021 Pneumococcal Conjugate PCV 20 03/27/2023 Tdap 01/17/2022 Family History Medical History Relation Name Comments No Known Problems Brother Alcohol abuse Father Missael Kaye Diabetes Maternal Grandfather Quincy Petersen Arthritis Maternal Grandmother Luisa Philippe Diabetes Maternal Grandmother Luisa Philippe Hypertension Maternal Grandmother Luisa Philippe Stroke Maternal Grandmother Luisa Philippe myocadial infarction Maternal Grandmother Luisa Bone To rres HIV Mother Elvia Mcgovern Hyperlipidemia Mother Elvia Mcgovern Hypertension Mother Elvia Mcgovern Depression Sister Krystian Blair Relation Name Status Comments Brother Father Missael Kaye Alive Maternal Grandfather Quincy Petersen Maternal Grandmother Luisa Philippe Mother Elvia Mcgovern Sister Krystian Blair Alive Social History Tobacco Use Types Packs/Day Years Used Date Smoking Tobacco: Former Passive Smoke Exposure: Current Smokeless Tobacco: Never Tobacco Cessation:Counseling Given: Not Answered Passive Exposure Comments:boyfriend Alcohol Use Standard Drinks/Week Comments Not Currently 0 (1 standard drink = 0.6 oz pur e alcohol) Depression Answer Date Recorded Patient Health Questionnaire-9 Score 12 05/12/2025 Patient Health Questionnaire-9 Score 12 05/12/2025 Last PHQ-9: Questionnaire Data Not on file 0 05/12/2025 Housing Stability Answer Date Recorded What is your housing situation today? I do not have housing (Staying with others, in a hotel, in a senior living, living outside on the street, on a beach, in a car, or in a park 05/05/[address] you li ve. Do you have problems with any of the following? Pests such as bugs, ants, or mice 05/05/2025 Food Insecurity Answer Date Recorded Within the past 12 months, y ou worried that your food would run out before you got money to buy more: Sometimes True 2024 Within the past 12 months,th e food you bought just didn't last and you didn't have enough money to get more: Sometimes True 05/05/2025 Transportation Answer Date Recorded In the past 12 months, has l ack of transportation kept you from medical appts, meetings, work or from getting things needed for daily living? No 05/05/2025 Utilities Answer Date Recorded In the past 12 months, has t he electric, gas, oil or water company threatened to shut off services in your home? No 05/05/2025 Depression Answer Date Recorded Patient Health Questionnaire-2 Score 4 05/12/2025 Internet Access Answer Date Recorded Internet Access Q1 Yes 05/05/2025 Internet Access Q2 Not on file 05/05/2025 Comments No Intention Date Recorded Wants to become (finding) 05/12 Sex and Gender Information Value Date Recorded Sex Assigned at Female 08/04/2022 10:16 AM EDT Legal Sex Female 10:16 AM EDT Gender Identity Female 08/04/2022 10:16 AM EDT Sexual Orientation Straight 08/04/2022 10 :16 AM EDT Last Filed Vital Signs Vital Sign Reading Time Taken Comments Blood Pressure 116/78 05/12/2025 9:26 AM EDT Pulse 66 05/12/2025 9:26 AM EDT Temperature 36.4 C (97.5 F) 05/12/2025 9:26 AM EDT Respiratory Rate 16 05/12/2025 9:26 AM EDT Oxygen Saturation 98% 01/31/2025 11:08 AM EDT Inhaled Oxygen Concentration - - Weight 78.9 kg (174 lb) 05/12/2025 9:26 AM EDT Height 165.1 cm (5' 5 ) 05/12/2025 9:26 AM EDT Body Mass Index 28.96 05/12/2025 9:26 AM EDT Plan of Treatment Health Maintenance Due Date Last Done Comments HPV Vaccines (1 - 3-dose series) 1998 Hepatitis A Vaccines (1 of 2 - Risk 2-dose series) 2002 Hepatitis B Vaccines (1 of 3 - 19+ 3-dose series) 2002 Dental Prophylaxis 12/18/2021 06/19/2021, 1 , 01/14/2019 Dental Oral Exam 09/13/2023 03/13/2023, , 10/28/2018, Additional history exists Dental X-Ray: Bitewings 03/14/2024 03/13/20 23, 06/19/2021, 10/28/2018, Additional history exists Dental X-Ray: Full Mouth 06/20/2024 06/19/2021, 02/2018 Influenza Vaccine (#1) 2025 COVID-19 Vaccine ( season) 2025 01/30/2022, 11/09/2021, 11/09/2021 Postponed from 06/05/2024 (Patient Refused) Depression Monitoring 11/12/2025 05/12/2025, 025 Alcohol/Substance Use Screening 12/05/2025 12/05/2024 Mammogram 04/05/2026 04/05/2024, 07/06, 07/28/2023 SDOH Screening 05/05/2026 05/05/2025 Disability Screening 05/12/2026 05/12/2025 Tobacco Screening 05/12/2026 05/12/2025 Family Planning (PISQ) 05/14/2026 05/14/2025 Cervical Cancer Screening 05/16/2027 HPV/Cotest 05/16/2027 05/16/2022, 05/05, 08/02/2020, Additional history exists Pap Smear 05/16/2027 05/16/2022 DTaP/Tdap/Td Vaccines (2 - Td or Tdap) 01/18/2032 01/17/2022 Zoster Vaccines (1 of 2) 2033 RSV Patients and Patients Aged 60 years or older (1 - 1-dose 75+ series) 2058 Pneumococcal Vaccine: Pediatrics (0 to 5 Years) and At-Risk Patients (6 to 49) Years Aged Out 03/27/2023 No longer eligible based on patient's age to complete this topic HIV Screening Completed 12/15/2023, 01/03, 11/02/2020 Hepatitis C Screening Completed 12/15/2023, 021 HIB Vaccines Aged Out No longer eligi ble based on patient's age to complete this topic IPV Vaccines Aged Out No longer eligi ble based on patient's age to complete this topic Meningococcal B Vaccine Aged Out No l onger eligible based on patient's age to complete [...] Procedure Name Priority Date/Time Associated Diagnosis Comments CBC WITH AUTO DIFFERENTIAL Routine 05/25/2025 10:22 AM EDT Healthcare maintenance MR PELVIS W AND WO CONTRAST Routine 03/11/2025 12:32 PM EDT Ovarian mass, right BI MR BREAST W AND WO CONTRAST [...] Relevant to Health Maintenance Results * (ABNORMAL) CBC auto differential (05/25/2025 10:22 AM EDT) White Blood Count 9.2 4.8 - 10.8 X10*3/uL [facility] Red Blood Count 4.45 4.20 - 5.50 X10*6/uL [facility] Hemoglobin 12.9 12.0 - 16.0 g/dl [facility] Hematocrit 40.1 37.0 - 47.0 % [facility] Mean Corpuscular Volume 90.1 80.0 - 98.0 fL [facility] Mean Corpuscular Hemoglobin 29.0 27.0 - 33.0 pg [facility] Mean Corpuscular HGB Conc 32.2 31.0 - 35.0 g/dl [facility] Red Cell Distribution Width 13.2 11.0 - 16.0 % [facility] Platelet Count 263 160 - 400 X10*3/uL [facility] Mean Platelet Volume 13.0(H) 9.4 - 12.3 fL [facility] Neutrophils Percent Auto 65.0 45 - 73 % [facility] Imm Gran Pct Auto 0.3 0.0 - 0.4 % [facility] Lymphocytes Percent Auto 27.9 20 - 40 % [facility] Monocytes Percent Auto 4.8 2 - 11 % [facility] Eosinophils Percent Auto 1.2 0 - 4 % [facility] Basophils Percent Auto 0.8 0 - 2 % [facility] NRBC Pct Auto 0.0 0.0 - 0.2 /100WBC [facility] Neutrophils Absolute Auto 6.0 2.0 - 8.3 x10*3/uL [facility] Imm Gran Abs Auto 0.03 0.00 - 0.03 X10*3/uL [facility] Lymphocytes Absolute Auto 2.6 1.2 - 4.9 X10*3/uL [facility] Monocytes Absolute Auto 0.4 0.1 - 1.2 X10*3/uL [facility] Eosinophils Absolute Auto 0.1 0.0 - 0.4 X10*3/uL [facility] Basophils Absolute Auto 0.1 0.0 - 0.2 X10*3/uL [facility] NRBC Abs Auto 0.000 0.0 - 0.012 X10*3/uL [facility] Blood Venous blood specimen / Unknown 05/25/2025 10:22 AM EDT 05/25/2025 11:25 AM EDT us Eulalia Tony [employer]INSENG [employer] LAB BLOOD ORDERABLES Final Res ult [facility] [address] [place] [phone] * MR Pelvis w/ and w/o Contrast (03/11/2025 12:32 PM EDT) Anatomical Region Laterality Modality Body, Pelvis Magnetic Resonan ce 03/11/2025 12:3 2 PM EDT Narrative 03/13/2025 8:06 AM EDT [address] [address] Magnetic Resonance Report Signed Patient: Carolyn Campbell MR# : [id number] : 1985 Acct:[id number] Age/Sex: 39 / F ADM Date: 03/11/25 Loc: HO.MRI Attending Dr: Marie Torrez MD Ordering Physician: Marie Torrez MD Date of Service: 03/11/25 Procedure(s): MR pelvis wo/w con Accession Number(s): [id number] cc: Marie Torrez MD; Eulalia Tony GINSENG FARMER EXAMINATION: MR PELVIS WITHOUT THEN WITH IV CONTRAST HISTORY: MULTILOCULATE CYST LESION OF THE CUL DE SAC. TECHNIQUE: Axial T1, fat-suppressed T1, and T2, and sagittal and coronal T2-weighted MR images of the pelvis were obtained. Subsequently, axial and sagittal fat-suppressed T1-weighted images were obtained after the intravenous administration of 8 mm Gadavist. COMPARISON: Comparison is made with the prior examination dated 11/25/2023. Correlation is also made with an outside CT of the pelvis from [facility] dated 01/10/2025. FINDINGS: The uterus measures approximately 9.2 x 3.7 x 5.5 cm in size. There is a pedunculated anterior fibroid measuring 3.5 x 3.1 x 3.7 cm. A right fundal fibroid is also noted measuring 11 mm in diameter. The junctional zone is preserved. The cervix is unremarkable. The endometrium is unremarkable. The right ovary measures approximately 1.9 x 1.3 x 1.7 cm. The left ovary measures approximately 1.9 x 1.7 x 2.1 cm. Again seen are tubular T2 hyperintense masses in both adnexa, which demonstrate mildly increased T1 signal intensity, consistent with proteinaceous content. These are consistent with hydrosalpinges and measure up to 3.8 cm in diameter on the right and 3.6 cm in diameter on the left. There is no free fluid in the pelvis. There is no pelvic lymphadenopathy. The urinary bladder is collapsed. The visualized bones demonstrate normal marrow signal intensity. MR/MR pelvis wo/w con IMPRESSION: 1. Fibroid uterus as described. 2. Bilateral hydrosalpinx. Electronically signed by: Maykel Reyes MD 03/13/2025 08:02 AM EDT RP Dictated By: Maykel Reyes MD Signed By: <Electronically signed by Maykel Reyes MD in OV> 03/13/25 0802 DD/ 1232 TD/TT: 03/11/25 1331 [employer] Meat: Procedure Note Donotuseinterpreter, Image - 03/13/2025 [place] [address] Magnetic Resonance Report Signed Patient: Carolyn Campbell# : [id number] : 1985Acct:[id number] Age/Sex: 39 / FADM Date: 03/11/25 Loc: HO.MRI Attending Dr: Marie Torrez MD Ordering Physician: Marie Torrez MD Date of Service: 03/11/25 Procedure(s): MR pelvis wo/w con Accession Number(s): [id number] cc: Marie Torrez MD; Eulalia Tony GINSENG FARMER EXAMINATION: MR PELVIS WITHOUT THEN WITH IV CONTRAST HISTORY: MULTILOCULATE CYST LESION OF THE CUL DE SAC. TECHNIQUE: Axial T1, fat-suppressed T1, and T2, and sagittal and coronal T2-weighted MR images of the pelvis were obtained. Subsequently, axial and sagittal fat-suppressed T1-weighted images were obtained after the intravenous administration of 8 mm Gadavist. COMPARISON: Comparison is made with the prior examination dated 11/25/2023. Correlation is also made with an outside CT of the pelvis from [facility] dated 01/10/2025. FINDINGS: The uterus measures approximately 9.2 x 3.7 x 5.5 cm in size. There is a pedunculated anterior fibroid measuring 3.5 x 3.1 x 3.7 cm. A right fundal fibroid is also noted measuring 11 mm in diameter. The junctional zone is preserved. The cervix is unremarkable. The endometrium is unremarkable. The right ovary measures approximately 1.9 x 1.3 x 1.7 cm. The left ovary measures approximately 1.9 x 1.7 x 2.1 cm. Again seen are tubular T2 hyperintense masses in both adnexa, which demonstrate mildly increased T1 signal intensity, consistent with proteinaceous content. These are consistent with hydrosalpinges and measure up to 3.8 cm in diameter on the right and 3.6 cm in diameter on the left. There is no free fluid in the pelvis. There is no pelvic lymphadenopathy. The urinary bladder is collapsed. The visualized bones demonstrate normal marrow signal intensity. MR/MR pelvis wo/w con IMPRESSION: 1. Fibroid uterus as described. 2. Bilateral hydrosalpinx. Electronically signed by: Maykel Reyes MD 03/13/2025 08:02 AM EDT Dictated By: Maykel Reyes MD Signed By: <Electronically signed by Maykel Reyes MD in OV> 03/13/25 0802 DD/ 1232 TD/TT: 03/11/25 1331 [employer] Meat: us Marie Torrez MD IM MRI PROCEDURES Edited R esult - Final * BI MR Breast w and w/o Contrast Bilateral (04/05/2024 2:45 PM EDT) Anatomical Region Laterality Modality Breast Bilateral Magnetic Resonan ce 04/05/2024 2:45 PM EDT Narrative 04/14/2024 4:20 PM EDT [address] [address] Magnetic Resonance Report Signed Patient: Carolyn Campbell MR# : [id number] : 1985 Acct:[id number] Age/Sex: 38 / F ADM Date: 04/05/24 Loc: HO.MRI Attending Dr: Eulalia Tony GINSENG FARMER Ordering Physician: Jose Bhagat MD Date of Service: 04/05/24 Procedure(s): MR breast BI wo/w con Accession Number(s): [id number] cc: Jose Bhagat MD; Eulalia Tony GINSENG FARMER EXAMINATION: MR BREAST WITHOUT AND WITH CONTRAST, [...] in OV> 04/14/24 1616 DD/ 1445 TD/TT: Hand Molder Meat: Procedure Note Donotuseinterpreter, Image - 04/14/2024 [place] [address] Magnetic Resonance Report Signed Patient: Carolyn CampbellMR# : [id number] : 1985Acct:[id number] Age/Sex: 38 / FADM Date: 04/05/24 Loc: HO.MRI Attending Dr: Eulalia Tony GINSENG FARMER Ordering Physician: Jose Bhagat MD Date of Service: 04/05/24 Procedure(s): MR breast BI wo/w con Accession Number(s): [id number] cc: Jose Bhagat MD; Eulalia Tony GINSENG FARMER EXAMINATION: MR BREAST WITHOUT AND WITH CONTRAST, [...] in OV> 04/14/24 1616 DD/ 1445 TD/TT: Hand Molder Meat: us Jose Philippe MD IMG MRI PROCEDURES Final Result * Hepatitis C Ab (12/15/2023 2:43 PM EDT) Hepatitis C Antibody Nonreactive Nonreactive [facility] Comment:Antibodies to HCV no t detected; does not exclude early acuteHCV infection. Blood Venous blood specimen / Unknown 12/15/2023 2:43 PM EDT 12/15/2023 4:06 PM EDT us Eli Villegas NP LAB BLOOD ORDERABLES Final Resul t [facility] [address] [place] [phone] * HIV-1/2 Antigen and Antibodies, Fourth Generation, with Reflexes (12/15/2023 2:43 PM EDT) HIV AB/AG Nonreactive Nonreactive [facility] Comment:HIV-1 p24 Ag and/or HIV-1/HIV-2 Ab not detected.A test result that is nonreactive does not exclude thepossibility of exposure to or infection with HIV-1 and/orHIV-2. Nonreactive results in this assay for individualswith prior exposure to HIV-1 and/or HIV-2 may be due toantigen and antibody levels that are below the limit ofdetection of this assay.The [employer] HIV Ag/Ab Combo assay result andsupplemental assay results should be interpreted inconjunction with the patient's clinical presentation,history and other laboratory results. If the results areinconsistent with clinical evidence, additional testing issuggested to confirm the result. Blood Venous blood specimen / Unknown 12/15/2023 2:43 PM EDT 12/15/2023 4:06 PM EDT us Eli Villegas CORRECTIONAL AGENCY DIRECTOR LAB BLOOD ORDERABLES Final Resul t Performing Organization Address [facility]/ZIP Co de Phone Number [facility] [address] [place] [phone] * HPV E6/E7 RFLX CARLOS 16 18/45 (05/16/2022 11:56 AM EDT) [facility] HPV mRNA E6/E7 rflx Not Detected Not Detected [facility] Comment: Methodology: Applications Specialist-Mediated Amplification This assay detects E6/E7 viral messenger RNA (mRNA) from 14 high-risk HPV types (16,18,31,33,35,39,45,51,52,56,58,59,66,68). Cervical sources are required for HPV testing. If a vaginal source from a patient who has had a total hysterectomy with removal of cervix was submitted, please contact the testing laboratory for alternative testing options. For additional information, please refer to http://education.Virtual Solutions/faq/WAZ048z3 (This link if provided for information/ educational purposes only.) THIS TEST WAS PERFORMED AT: [facility] [address] [facility] [address] F[address],[place] [address] DOT KAUFMAN MD 05/16/2022 11:5 6 AM EDT us Emma Dudley HISTORICAL/NON ORDERABLE LABS Fi nal Result [facility] [address] [place] [phone], * Pap Smear (05/16/2022 12:00 AM EDT) Swab us Historical Provider LAB CYTOLOGY ORDERABLES F inal Result EXTERNAL LAB from Last 3 Months or Most Recently Relevant to Health Maintenance Insurance [facility] [address] [place] [id number] DENTAL-[facility] MEDICAID STAND ADULT Care Teams Tie Inspector Relationship Specialty Start Date End Date Eulalia Tony FNP [address] [place] [phone] PCP - General Family Medicine 02/19/23
--- OUTSIDE RECORDS SUMMARY | 2025-05-25 11:46 | XMS_ITS | Clinical Summary ---
Author Organization [facility] Address [address] [place] [address] Phone Care Team Providers Care Kitchen Worker Name Role Phone Physician, No Pcp Primary Care Provider Unavaila ble Allergies Active Allergy Reactions Criticality Noted Date Comments Penicillins Unknown 01/10/2025 Childhood allergy Social History Tobacco Use Types Packs/Day Years Used Date Smoking Tobacco: Never Assessed Comments Unknown Sex and Gender Information Value Date Recorded Sex Assigned at Female 01/10/2025 6:08 PM EDT Legal Sex Female 11:03 PM EST Gender Identity Female 01/10/2025 6:08 PM EDT Sexual Orientation Choose not to disclose 2024 6:08 PM EDT Last Filed Vital Signs Vital Sign Reading Time Taken Comments Blood Pressure 117/75 01/10/2025 12:11 PM EDT Pulse 76 01/10/2025 12:11 PM EDT Temperature 36.8 C (98.2 F) 01/10/2025 12:11 PM EDT Respiratory Rate 16 01/10/2025 12:11 PM EDT Oxygen Saturation 99% 01/10/2025 12:11 PM EDT Inhaled Oxygen Concentration - - Weight 80.7 kg (178 lb) 01/10/2025 12:11 PM EDT Height 157.5 cm (5' 2 ) 01/10/2025 12:11 PM EDT Body Mass Index 32.56 01/10/2025 12:11 PM EDT Plan of Treatment Health Maintenance Due Date Last Done Comments Breast Cancer Screening 1985 Hepatitis B Vaccines (1 of 3 - 19+ 3-dose series) 2002 Hepatitis C Screening 09/07/2022 Social Influencers of Health Screening 09/07/2022 COVID-19 Vaccine ( - 2023-2 5 season) 2024 11/09/2021 Depression Screening 10/05/2024 Cervical Cancer Screening: P ap Smear 05/16/2025 05/16/2022 Influenza Vaccine (#1) 2025 DTaP,Tdap,and Td Vaccines (2 - Td or Tdap) 01/18/2032 01/17/2022 Pneumococcal Vaccine: Pediat rics (0 to 5 Years) and At-Risk Patients (6 to 49 Years) Aged Out 03/27/2023 No longer eligi ble based on patient's age to complete this topic HIV Screening Completed 12/15/2023 HIB Vaccines Aged Out No longer eligi [...] on patient's age to complete this topic Insurance [place] - [place] Care Teams Kitchen Worker Relationship Specialty Start Date End Date Physician, No Pcp PCP - General 01/10/25
[2025-05-25 12:12] LABS: Alanine Aminotransferase 19 U/L (0-31); Albumin Level 4.7 g/dL (3.5-5.0); Alkaline Phosphatase 77 U/L (39-117); Anion Gap 10 (12-20); Aspartate Amino Transferase 26 U/L (5-31); Blood Urea Nitrogen 7 mg/dL (9-16); Calcium 9.2 mg/dL (8.4-10.2); Carbon Dioxide 26 mmol/L (22-29); Chloride 107 mmol/L (96-108); Cholesterol 171 mg/dL (<200); Estimated Glomerular Filt Rate > 60; HDL Cholesterol 34 mg/dL (>40); Potassium 4.2 mmol/L (3.3-5.1); Sodium 139 mmol/L (135-145); Total Protein 7.5 g/dL (6.5-8.0); Triglycerides 89 mg/dL (<150)
[2025-05-25 13:40] LABS: HBS Num1 1.16 mIU/mL (0-7.99); HBc Num1 0.10 S/CO (0.00-0.79); HBsAGNum1 0.87 S/CO (0.00-0.99); HIV Num 1 0.06 S/CO (0.00-0.99); Hepatitis B Surface Antigen Negative (Negative); ~Hepatitis B Surface Antibody NONREACTIVE (Nonreactive)
[2025-05-26 14:58] LABS: HCV Log PCR <1.18 NOT DETECTED Log IU/mL (NOT DETECTED); HepC Viral Load <15 NOT DETECTED IU/mL (NOT DETECTED)
== END 2025-05-25 10:17 | disposition home or self-care (01) ==
LOC: HO.HHCL 10:16
PROVIDERS: PCP Registered Nurse; Visit Provider Registered Nurse
DX: Z00.00 Encounter for general adult medical examination without abnormal findings (principal); Z11.4 Encounter for screening for human immunodeficiency virus [HIV]; Z11.59 Encounter for screening for other viral diseases; Z11.3 Encounter for screening for infections with a predominantly sexual mode of transmission
CPT/HCPCS: 36415; 80053; 80061; 83036; 84443; 85025; 86592; 86704; 86706; 87340; 87389; 87522

== ENCOUNTER 2025-06-28 12:03 | Outpatient (REF) | payer MEDICAID, SELFPAY ==
--- NOTE | ~2025-06-28 | MM_ITS ---
EXAMINATION: MM SCREENING DIGITAL BREAST TOMOSYNTHESIS, BILATERAL CLINICAL INFORMATION: Screening. Asymptomatic. COMPARISON: Mammogram on July 28, 2023. Breast MRI on April 05, 2024. TECHNIQUE: Digital breast tomosynthesis is performed in mediolateral oblique and craniocaudal views along with computer-aided detection (CAD). Synthesized 2D images are generated from the tomosynthesis. FINDINGS: BREAST COMPOSITION: The breasts are heterogeneously dense, which may obscure small masses. BILATERAL BREASTS: No significant masses, suspicious calcifications or other abnormalities are seen in either breast. MM/MM tomosynthesis screening BI IMPRESSION: BILATERAL BREASTS: Negative, no mammographic evidence of malignancy. Normal interval follow-up is recommended in 12 months. ASSESSMENT: BI-RADS: Category 1: Negative RECOMMENDATION: Routine annual mammography screening. FOLLOW-UP: 1 year F/U This examination should not preclude the clinical evaluation of a suspicious palpable abnormality. This patient's information was entered into a reminder system with a target due date for their next mammogram. Electronically signed by: Candi Goodrich MD 06/30/2025 06:19 PM EDT
--- OUTSIDE RECORDS SUMMARY | 2025-06-28 14:54 | XMS_ITS | Encounter Summary ---
Author Organization [facility] Address [address] [place] [address] 7 [place] [address] Care Team Providers Care Glue Wheel Operator Name Role Phone Patrick Guardado MD Primary Care Provider Nia Ferris Primary Care Provider Eulalia Caballero Primary Care Provider [phone] Encounter Details Date Type Department Care Team (Latest Contact Info) Description 06/19/2021 Abstract [facility] CONVERSIONS Dental, Provider, DDS Social History Tobacco [...] Care Team (Late st Contact Info) Description 07/17/2025 8:00 AM EDT Office Visit [facility] CHC ADULT DENTAL [address] [place] [address] Antonio Torrez documented as of this encounter Visit Diagnoses Not on filedocumented in this encounter Care Teams Glue Wheel Operator Relationship Specialty Start Date End Date Patrick Guardado MD PCP - General Family Medicine 07/19/19 08/31/22 Nia Edouard FNP PCP - General Family Medicine 09/01/22 02/18/23 Eulalia Tony FNP [address] [place] [address] PCP - General Family Medicine 02/19/23 documented as of this encounter
--- OUTSIDE RECORDS SUMMARY | 2025-06-28 14:54 | XMS_ITS | Encounter Summary ---
Author Organization [employer] Address [address] [place] [address] 7 [place] [address] Care Team Providers Care Net Lead Developer Name Role Phone Eulalia Tony Primary Care Provider [phone] Reason for Referral * Imaging (Routine) - Closed Specialty Diagnoses / Procedures Referred By Contac t Referred To Contact Radiology Diagnoses Mastodynia, female Procedures BI MR Breast w and w/o Contrast Bilateral Jose Bhagat MD [address] [place] [address] Phone: tel: fax: [address] Phone: tel: fax: Referral ID Status Reason Start Date Expiration Date Visits Re quested Visits Authorized [id number] Closed 03/08/2024 03/08/2025 1 1 Encounter Details Date Type Department Care Team (Late st Contact Info) Description 03/08/2024 Orders Only [facility] CHC MED & PEDS [address] [place], [place] [phone] Jose Bhagat MD [address] [place], [place] [phone] Mastodynia, female (Primary Dx) Social History Tobacco [...] with others, in a hotel, in a care home, living outside on the street, on a [...] Description 07/17/2025 8:00 AM EDT Office Visit [facility] ADULT DENTAL [address] [place] [address] Antonio Torrez documented as of this encounter Procedures Procedure [...] PM EDT Narrative 04/14/2024 4:20 PM EDT [place] [address] Magnetic Resonance Report Signed Patient: Carolyn Campbell MR# : [id number] : 1985 Acct:[id number] Age/Sex: 38 / F ADM Date: 04/05/24 Loc: HO.MRI Attending Dr: Eulalia Tony HEALTHCARE ADMINISTRATION INTERN Ordering Physician: Jose Bhagat MD Date of Service: 04/05/24 Procedure(s): MR breast BI wo/w con Accession Number(s): [id number] cc: Jose Bhagat MD; Eulalia Tony HEALTHCARE ADMINISTRATION INTERN EXAMINATION: MR BREAST WITHOUT AND WITH CONTRAST, [...] follow-up. Continued annual mammographic surveillance. Dictated By: Hafas Greene Signed By: <Electronically signed by Hafsa Greene in OV> 04/14/24 1616 DD/ 1445 TD/TT: Rn Coronary Care Unit: Procedure Note Donotuseinterpreter, Image - 04/14/[address] [address] Magnetic Resonance Report Signed Patient: Carolyn CampbellMR# : [id number] : 1985Acct:[id number] Age/Sex: 38 / FADM Date: 04/05/24 Loc: HO.MRI Attending Dr: Eulalia Tony HEALTHCARE ADMINISTRATION INTERN Ordering Physician: Jose Bhagat MD Date of Service: 04/05/24 Procedure(s): MR breast BI wo/w con Accession Number(s): [id number] cc: Jose Bhagat MD; Eulalia Tony EXAMINATION: [...] in OV> 04/14/24 1616 DD/ 1445 TD/TT: Rn Coronary Care Unit: Jose Philippe MD IMG MRI PROCEDURES Final Result documented in this encounter Visit Diagnoses Diagnosis Mastodynia, female- Primary documented in this encounter Additional Health Concerns Assessment Noted Time PHQ-9 Depression Total Score: 15 024 1:51 PM EDT documented as of this encounter Care Teams Net Lead Developer Relationship Specialty Start Date End Date Eulalia Tony FNP [address] [place] [address] PCP - General Family Medicine 02/19/23 documented as of this encounter
--- OUTSIDE RECORDS SUMMARY | 2025-06-28 14:54 | XMS_ITS | Clinical Summary ---
Author Organization [facility] Address [address] [place] [address] Phone Care Team Providers Care Ocularist Name Role Phone Physician, No Pcp Primary [...] 09/07/2022 Social Influencers of Health Screening 09/07/2022 Depression Screening 10/05/2024 Cervical Cancer Screening: P ap Smear 05/16/2025 05/16/2022 COVID-19 Vaccine (2 - 2024-2 6 season) 2025 11/09/2021 Influenza Vaccine (#1) 2025 DTaP,Tdap,and Td Vaccines [...] to complete this topic Insurance MEDICAID - [place] Care Teams Ocularist Relationship Specialty Start Date End Date Physician, No Pcp PCP - General 01/10/25
--- OUTSIDE RECORDS SUMMARY | 2025-06-28 14:54 | XMS_ITS | Encounter Summary ---
Author Organization [employer] Address [address] 7[address] [place] [address] Care Team Providers Care Nuclear Equipment Test Engineer Name Role Phone Eulalia Tony QC CHEMIST Primary Care Provider Encounter Details Date Type Department Care Team (Late st Contact Info) Description 06/27/2025 Telephone [facility] CHC ADULT DENTAL [address] [place] [address] Antonio Torrez Social History Tobacco Use Types Packs/Day Years [...] with others, in a hotel, in a usp, living outside on the street, on a [...] Q2 Not on file 05/05/2025 Comments No Sex and Gender Information Value Date Recorded Sex Assigned at Female 08/04/2022 10:16 AM EDT Legal Sex Female 10:16 AM EDT Gender Identity Female 08/04/2022 10:16 AM EDT Sexual Orientation Straight 08/04/2022 10 :16 AM EDT documented as of this encounter Miscellaneous Notes * Telephone Encounter - Otilia Cavazos - 06/27/2025 1:01 PM EDT PT was looking to book an appt but I told her she already has one and we will book more once she gets seen documented in this encounter Plan of Treatment Upcoming Encounters Date Type Department Care Team (Late st Contact Info) Description 07/17/2025 8:00 AM EDT Office Visit [facility] ADULT DENTAL [address] [place] [address] Antonio Torrez documented as of this encounter Visit Diagnoses Not on filedocumented in this encounter Additional Health Concerns Assessment Noted Time PHQ-9 Depression Total Score: 12 025 9:41 AM EDT documented as of this encounter Care Teams Nuclear Equipment Test Engineer Relationship Specialty Start Date End Date Eulalia Tony FNP [address] [place] [address] PCP - General Family Medicine 02/19/23 documented as of this encounter
--- OUTSIDE RECORDS SUMMARY | 2025-06-28 14:54 | XMS_ITS | Encounter Summary ---
Author Organization [employer] Address [address] 7 [place] [address] Care Team Providers Care Chief Deputy Sheriff Name Role Phone Eulalia Tony Primary Care Provider [phone] Reason for Visit * Reason Onset Date Comments Appointment Request 12/14/2023 Encounter Details Date Type Department Care Team ([facility] st Contact Info) Description 12/14/2023 Telephone [facility] [address] [place] [address] Eulalia Tony FNP [address] [place] [address] Appointment Request Social History Tobacco Use Types [...] AM EDT documented as of this encounter Functional Status * Over the past 2 weeks, how often have you been bothered by any of the following problems? Question Answer Date of Assessment Author Patient Health Questionnaire-2 Score 3 12/03 1:51 PM EDT Kan Marcelino [place] * If you checked off any problems on this questionnaire so far, Question Answer Date of Assessment Author How difficult have these problems made it for you to do your work, take care of things at home, or get along with other people? Not difficult at all 12/15/2023 1:51 PM EDT Kan Marcelino M A * Over the past 2 weeks, how often have you been bothered by any of the following problems? Question Answer Date of Assessment Author Little interest or pleasure in doing things Several days 12/15/2023 1:51 PM EDT Nataliia Marcelino i, [place] Feeling down, depressed, or hopeless More than half the days 12/15/2023 1:51 PM EDILSONT Kan Marcelino [place] Trouble falling or staying asleep, or sleeping too much Nearly every day 12/15/2023 1:51 PM EDILSONT Kan Marcelino [place] Feeling tired or having little energy Nearly every day 12/15/2023 1:51 PM EDILSONT Kan Marcelino [place] Poor appetite or overeating Nearly every day 12/15/2023 1:51 PM EDT Kan Marcelino [place] Feeling bad about yourself - or that you are a failure or have let yourself or your family down Not at all 12/15/2023 1:51 PM EDT Kan Marcelino [place] Trouble concentrating on things, such as reading the newspaper or watching television Nearly every day 12/15/2023 1:51 PM EDT Kan Marcelino MA Moving or speaking so slowly that other people could have noticed? Or the opposite - being so fidgety or restless that you have been moving around a lot more than usual. Not at all 12/15/2023 1:51 PM EDT Kan Marcelino MA Thoughts that you would be better off or hurting yourself in some way Not at all 12/15/2023 1:51 PM EDT Kan Marcelino M A Patient Health Questionnaire-9 Score 15 12/15/2023 1:51 PM EDT Kan Marcelino MA documented as of this encounter Miscellaneous Notes * Telephone Encounter - Chaim Blair - 12/14/2023 10:17 AM EDT Tc from pt needs PE for work by 12/16. Care Attendant found no availability. Please contact pt at [phone]. documented in this encounter Plan of Treatment Upcoming Encounters Date Type Department Care Team (Late st Contact Info) Description 07/17/2025 8:00 AM EDT Office Visit [facility] ADULT DENTAL [address] [place] [address] Antonio Torrez documented as of this encounter Visit Diagnoses Not on filedocumented in this encounter Additional Health Concerns Assessment Noted Time PHQ-9 Depression Total Score: 7 03/27/20 9:58 AM EDT documented as of this encounter Care Teams Chief Deputy Sheriff Relationship Specialty Start Date End Date Eulalia Tony FNP [address] [place] [address] PCP - General Family Medicine 02/19/23 documented as of this encounter
--- OUTSIDE RECORDS SUMMARY | 2025-06-28 14:54 | XMS_ITS | Encounter Summary ---
Author Organization [employer] Address [address] [place] [address] [address] [place] [address] Care Team Providers Care Toppiece Chopper Name Role Phone Eulalia Tony Primary Care Provider [phone] Reason for Referral * Imaging (Routine) - Closed Specialty Diagnoses / Procedures Referred By Contac t Referred To Contact Radiology Diagnoses Ovarian mass, right Procedures MR Pelvis w/ and w/o Contrast Marie Torrez MD [address] [place] [address] Phone: tel: fax: [address] Phone: tel: fax: Referral ID Status Reason Start Date Expiration Date Visits Re quested Visits Authorized [id number] Closed 02/09/2025 02/09/2026 1 1 Encounter Details Date Type Department Care Team (Late st Contact Info) Description 02/09/2025 Orders Only [facility] CHC MED & PEDS [address] [place], [place] [phone] Marie Torrez MD [address] [place], [place] [phone] Ovarian mass, right (Primary Dx) Social History Tobacco Use Types [...] with others, in a hotel, in a longterm, living outside on the street, on a [...] Description 07/17/2025 8:00 AM EDT Office Visit [facility] ADULT DENTAL [address] [place] [address] Antonio Torrez documented as of this encounter Procedures Procedure Name Priority Date/Time Associated Diagnosis Comments MR PELVIS W AND WO CONTRAST Routine 03/11/2025 12:32 PM EDT Ovarian mass, right documented in this encounter Results * MR Pelvis w/ and w/o Contrast (03/11/2025 12:32 PM EDT) Anatomical Region Laterality Modality Body, Pelvis Magnetic Resonan ce 03/11/2025 12:3 2 PM EDT Narrative 03/13/2025 8:06 AM EDT [address] [address] Magnetic Resonance Report Signed Patient: Carolyn Campbell MR# : [id number] : 1985 Acct:[id number] Age/Sex: 39 / F ADM Date: 03/11/25 Loc: HO.MRI Attending Dr: Marie Torrez MD Ordering Physician: Marie Torrez MD Date of Service: 03/11/25 Procedure(s): MR pelvis wo/w con Accession Number(s): [id number] cc: Marie Torrez MD; Eulalia Tony MANAGER INTERVENTIONAL EXAMINATION: MR PELVIS WITHOUT THEN WITH IV [...] an outside CT of the pelvis from [facility] dated 01/10/2025. FINDINGS: The uterus measures [...] 03/13/25 0802 DD/ 1232 TD/TT: 03/11/25 1331 International Sales Representative: Procedure Note Donotuseinterpreter, Image - 03/13/2025 [place] [address] Magnetic Resonance Report Signed Patient: Carolyn Campbell# : [id number] : 1985Acct:[id number] Age/Sex: 39 / FADM Date: 03/11/25 Loc: .MRI Attending Dr: Marie Torrez MD Ordering Physician: Marie Torrez MD Date of Service: 03/11/25 Procedure(s): MR pelvis wo/w con Accession Number(s): [id number] cc: Marie Torrez MD; Eulalia Tony EXAMINATION: MR PELVIS WITHOUT THEN WITH IV [...] an outside CT of the pelvis from [facility] dated 01/10/2025. FINDINGS: The uterus measures [...] 03/13/25 0802 DD/ 1232 TD/TT: 03/11/25 1331 International Sales Representative: Marie Torrez MD IM MRI PROCEDURES Edited R esult - Final documented in this encounter Visit Diagnoses Diagnosis Ovarian mass, right- Primary documented in this encounter Additional Health Concerns Assessment Noted Time PHQ-9 Depression Total Score: 12 08/29/ 024 10:15 AM EST documented as of this encounter Care Teams Toppiece Chopper Relationship Specialty Start Date End Date Eulalia Tony FNP [address] [place] [address] PCP - General Family Medicine 02/19/23 documented as of this encounter
--- OUTSIDE RECORDS SUMMARY | 2025-06-28 14:54 | XMS_ITS | Encounter Summary ---
Author Organization [facility] Address [address] [facility] 7t [place] [address] Care Team Providers Care Returned Case Inspector Name Role Phone Eulalia Tony Primary Care Provider [phone] Encounter Details Date Type Department Care Team ([facility] st Contact Info) Description 02/24/2024 Orders Only [facility] CHC MED & PEDS [address] [place], [place] [phone] Eulalia Tony FNP [address] [place], [place] [phone] Bacterial vaginitis (Primary Dx) Social History Tobacco [...] with others, in a hotel, in a detention, living outside on the street, on a [...] Description 07/17/2025 8:00 AM EDT Office Visit [facility] ADULT DENTAL [address] [place] [address] Antonio Torrez documented as of this encounter Visit Diagnoses Diagnosis Bacterial vaginitis- Primary Unspecified vaginitis and vulvovaginitis documented in this encounter Additional Health Concerns Assessment Noted Time PHQ-9 Depression Total Score: 15 024 1:51 PM EDT documented as of this encounter Care Teams Returned Case Inspector Relationship Specialty Start Date End Date Eulalia Tony FNP [address] [place] [address] PCP - General Family Medicine 02/19/23 documented as of this encounter
--- OUTSIDE RECORDS SUMMARY | 2025-06-28 14:54 | XMS_ITS | Encounter Summary ---
Author Organization [employer] Address [address] [place] [address] 7 [place] [address] Care Team Providers Care Mercantile Reporter Name Role Phone Patrick Guardado MD Primary Care Provider Nia Ferris Primary Care Provider Eulalia Caballero Primary Care Provider [phone] Encounter Details Date Type Department Care Team (Latest Contact Info) Description 01/14/2019 Abstract [facility] CONVERSIONS Dental, Provider, DDS Social [...] Upcoming Encounters Date Type Department Care Team ( st Contact Info) Description 07/17/2025 8:00 AM EDT Office Visit [facility] CHC ADULT DENTAL [address] [place] [address] Antonio Torrez documented as of this encounter Visit Diagnoses Not on filedocumented in this encounter Care Teams Mercantile Reporter Relationship Specialty Start Date End Date Patrick Guardado MD PCP - General Family Medicine 07/19/19 08/31/22 Nia Edouard FNP PCP - General Family Medicine 09/01/22 02/18/23 Eulalia Tony FNP [address] [place] [address] PCP - General Family Medicine 02/19/23 documented as of this encounter
--- OUTSIDE RECORDS SUMMARY | 2025-06-28 14:54 | XMS_ITS | Encounter Summary ---
Author Organization [employer] Address [address] [facility] [address] [place] [address] Care Team Providers Care Pressing Machine Tender Name Role Phone Eulalia Tony GRINDING WHEEL FACER Primary Care Provider [phone] Encounter Details Date Type Department Care Team (Late st Contact Info) Description 12/06/2024 Orders Only [facility] [address] [place] [address] Provider, MD Hoang Social History Tobacco Use Types Packs/Day Years [...] Description 07/17/2025 8:00 AM EDT Office Visit [facility] [address] [place] [address] Antonio Torrez documented as of this encounter Procedures Procedure Name Priority Date/Time Associated Diagnosis Comments US RENAL BI Routine 12/06/2024 2:56 PM EST SURGICAL PATHOLOGY Routine 09/14/2024 12 :20 PM EST documented in this encounter Results * US RENAL BI (12/06/2024 2:56 PM EST) Anatomical Region Laterality Modality Abdomen Ultrasound 12/06/2024 2:56 PM EST Narrative 12/06/2024 2:58 PM EST [address] [address] Ultrasound Report Signed Patient: Carolyn Campbell MR# : [id number] : 1985 Acct:[id number] Age/Sex: 39 / F ADM Date: 12/06/24 Loc: HO.US Attending Dr: Eulalia HOLLINS Ordering Physician: Eulalia Tony Date of Service: 12/06/24 Procedure(s): US renal BI Accession Number(s): [id number] cc: Eulalia Tony CLINICAL HISTORY: 39 y o F with right CVA tenderness, please eval for nephrolithiasis and hy US Renal Comparison: US/SR - US RENAL BI - 05/25/23 08:13 EDT Findings: Right kidney normal size and echotexture, 10.5 cm length. Left kidney normal size and echotexture, 10.6 cm length. No collecting system dilatation of either kidney. Normal color Doppler. IMPRESSION: 1. Normal kidneys. This document has been electronically signed by: Kellen Robles MD on 12/06/2024 14:56:52 Dictated By: Kellen Robles MD Signed By: <Electronically signed by Kellen Robles MD in [place]> 12/06/241456 DD/ 55 TD/TT: 12/06/241455 Keno Writer: Procedure Note Donotuseinterpreter, Image - 12/06/2024 [place] [address] Ultrasound Report Signed Patient: Carolyn Campbell# : [id number] : 1985Acct:[id number] Age/Sex: 39 / FADM Date: 12/06/24 Loc: HO.US Attending Dr: Eulalia HOLLINS Ordering Physician: Eulalia Tony Date of Service: 12/06/24 Procedure(s): US renal BI Accession Number(s): [id number] cc: Eulalia Tony CLINICAL HISTORY: 39 y o F with right CVA tenderness, please eval fornephrolithiasis and hy US Renal Comparison: US/SR - US RENAL BI - 05/25/23 08:13 EDT Findings: Right kidney normal size and echotexture, 10.5 cm length. Left kidney normal size and echotexture, 10.6 cm length. No collecting system dilatation of either kidney. Normal color Doppler. IMPRESSION: 1. Normal kidneys. This document has been electronically signed by: Kellen Robles MD on 12/06/2024 14:56:52 Dictated By: Kellen Robles MD Signed By: <Electronically signed by Kellen Robles MD in [place]> 12/06/241456 DD/ 55 TD/TT: 12/06/241455 Keno Writer: us Eulalia HOLLINS IMG US PROCEDURES Final Result * Surgical Pathology (09/14/2024 12:20 PM EST) us Historical Provider MD LAB PATHOLOGY ORDERABLES Final Result documented in this encounter Visit Diagnoses Not on filedocumented in this encounter Additional Health Concerns Assessment Noted Time PHQ-9 Depression Total Score: 12 024 10:15 AM EST documented as of this encounter Care Teams Pressing Machine Tender Relationship Specialty Start Date End Date Eulalia Tony FNP [address] [place] [id number] PCP - General Family Medicine 02/19/23 documented as of this encounter
--- OUTSIDE RECORDS SUMMARY | 2025-06-28 14:54 | XMS_ITS | Clinical Summary ---
Author Organization [employer] Address [address] [place] [address] Care Team Providers Care Bioinformatics Specialist Name Role Phone Eulalia Tony GURVINDER Primary Care Provider [phone] Allergies Active Allergy Reactions Criticality Noted Date [...] the same time. 30 patch 4 Active Additional Information Patient not taking.Reported on 06/21/2025 nicotine polacrilex (Nicorette) 4 MG gum Chew 1 each (4 mg) if needed for smoking cessation. 100 each 1 4 Active Additional Information Patient not taking.Reported on 06/21/2025 ibuprofen 800 MG tablet 1 tablet every 8 hours with food x 7 days 21 tablet 4 Active omeprazole (PriLOSEC) [address] capsuleIndicati ons:Dyspepsia TAKE ONE CAPSULE BY MOUTH ONCE DAILY 90 capsule 1 5 Active Additional Information Patient not taking.Reported on 06/21/2025 Magnesium 400 MG capsule Take 400 mg by mouth at bedtime. 90 capsule 1 5 Active escitalopram (Lexapro) 20 MG tablet Take 20 mg by mouth Once per day. Active ARIPiprazole (Abilify) 15 MG tablet Take 15 mg by mouth Once per day. Active mirtazapine (Remeron) 15 MG tablet take one tablet every night at bedtime Active zolpidem (Ambien) 10 MG tablet take one tablet every night at bedtime Active Active Problems Problem Noted Date Diagnosed Date Chronic pelvic pain in female 06/12/2024 Overview (12/05/2024): Following with [facility] O[facility] Hx of hydrosalpinx, AUB, fibroids, possible ovarian cyst Assessment & Plan (12/05/2024 1:50 PM EST): - DRAWING BOX TENDER consult Sep 2024, discussed consideration of hysterectomy. Pt is considering. Encouraged to follow up as scheduled with [facility] OBGYN, sooner PRN. Abnormal uterine bleeding 06/12/2024 Overview (12/05/2024): Followed by [facility] DRAWING BOX TENDER - Dr. Meneses beginning of 2023, with plan to transition to [facility] fall. Last pap May 2022 NILM, HPV neg 09/14/24: EMB completed at [facility] - late endometrium with stromal breakdown [...] joint dysfunction 02/23/2024 Overview (06/12/2024): Following with [facility] Pain Management - Dr. Buchanan Recommendation per consult December 2023 for diagnostic SI joint injection with local anesthesia, and SI joint compression belt 02/25/24: Diagnostic SIJ injection (right): 50% pain relief. 03/31/24: Therapeutic SIJ injection (right): 70% pain relief Assessment & Plan (09/04/2024 9:01 PM EST): - Referred to physical therapy by [facility] Management (reports consult scheduled for 09/09/24) - Scheduled for repeat right therapeutic SI joint injection Fibroid 02/22/2024 Overview (05/14/2025): 11/25/23: MRI pelvis wo/w contrast ordered by Dr. Meneses. Impression: pedunculated anterior subserosal fibroid measures 2.3 x 2.3 x 2.3 cm. Bilateral hematosalpinx. Per DRAWING BOX TENDER consult December 2023 - discussed findings as well as risk of myosarcoma (malignant muscle tumor) Plan: repeat pelvic US periodically, appt sooner if symptomatic 03/11/25: MRI Pelvis Demonstrated fibroid of the uterus and bilateral hydrosalpinx. pedunculated anterior fibroid measuring 3.5 x 3.1 x 3.7 cm. A right fundal fibroid is also noted measuring 11 mm in diameter Encouraged to follow up with [facility]BG[facility] Generalized abdominal pain 12/15/2023 Assessment [...] Physical therapy sessions w/o noted improvement - [facility] Pain management: consult December 2023 with diagnosis [...] Physical therapy sessions w/o noted improvement - [facility] Pain management: consult December 2023 with diagnosis [...] sessions w/o noted improvement - Referral to [facility] Management on 12/08/23 for further eval Cont with symptomatic management at home, reviewed red flag symptoms Hydrosalpinx 08/22/2023 Overview (05/14/2025): Chronic hydrosalpinx of left ovary noted CT Urogram Jun 2023 Following with [facility] OBGYN 03/11/25: MRI Pelvis - Demonstrated [...] TTP lateral left breast -Continues following with entry specialist -Offered MRI left breast for further eval, but pt declines at this time -ED/urgent care precautions reviewed Ovarian cyst 06/26/2023 Assessment & Plan (06/26/2023 9:06 PM EDT): -Following with [facility] DRAWING BOX TENDER INEZ Downing. Referred to [facility] for complex ovarian cyst in May 2023. -Upcoming CT scheduled 07/01/23 likely ordered by [facility] DRAWING BOX TENDER US completed 06/23/23 with the following impression: [...] as pharmacomtherapy, [facility] smoking cessation group, and [facility] pharmacy smoking cessation clinic Pre-contemplation [...] as pharmacomtherapy, [facility] smoking cessation group, and [facility] pharmacy smoking cessation clinic Pre-contemplation phase Assessment & Plan (06/26/2023 9:14 PM EDT): Currently smoking 2 cigg/day Encouraged smoking cessation resources such as pharmacomtherapy, [facility] smoking cessation group, and [facility] pharmacy smoking cessation clinic Assessment & Plan (03/28/2023 2:07 PM EDT): Currently smoking 2 cigg/day Encouraged smoking cessation resources such as pharmacomtherapy, [facility] smoking cessation group, and [facility] pharmacy smoking cessation clinic Healthcare maintenance 03/28/2023 Overview (05/14/2025): Last PE: 05/12/25 Pap: 05/16/22 NILM HPV neg Mammo: MRI bilat breasts 04/05/24 BIRADS 1. Colonoscopy: routine screening at 43 y/o Dental: [facility] Dental referral 02/22/24 BMD: starting at 63 y/o Assessment & Plan (12/15/2023 4:20 PM EDT): Pt utd with routine screening including pap, mammogram, requesting blood work today. Ordered , work requires TB screen Assessment & Plan (03/28/2023 2:07 PM EDT): Routine Health Maintenance Optometry: discuss at follow up Dental: [facility] Dental BMD: starting at 63 y/o Outstanding IZ: pneumococcal administered today, declined COVID bivalent Routine Cancer Screening Breast CA: Routine screening starting at 40 y/o Cervical CA: December 2018 NILM HPV neg Colon CA: routine screening starting at 45 y/o Infertility of tubal origin 03/27/2023 Assessment & Plan (03/28/2023 2:00 PM EDT): -Previously following with [facility], currently following [facility] DRAWING BOX TENDER -Suspect bilateral hydrosalpinx -Previously discussed option for IVF as pt expressed interest in conceiving. However, declines IVF at this time. Overactive bladder 03/27/2023 Assessment & Plan (03/27/2023 7:24 AM EDT): Followed by [facility] Urology (previously [facility]) Tx with Detrol [facility] [...] Encounters Date Type Department Care Team Description 06/27/2025 Telephone [facility] [address] [place] [address] Antonio Torrez 06/21/2025 9:00 AM EDT Office Visit [facility] [address] [place] [address] Albaro Patel DMD Symptomatic irreversible pulpitis (Primary Dx) 06/12/2025 Results Follow-Up [facility] [address] [place] [address] Eulalia Tony FNP Lipid Panel, Standard, Hemoglobin A1c, TSH with Reflex to Free T4, Additional followed-up results: 8 05/31/2025 11:30 AM EDT Office Visit [facility] [address] [place] [address] Albaro Patel DMD Symptomatic irreversible pulpitis (Primary Dx) 05/12/2025 9:30 AM EDT Office Visit [facility] [address] [place] [address] Eulalia Tony FNP Encounter for routine history and physical examination of adult (Primary Dx); Healthcare maintenance; Hydrosalpinx; Encounter for screening mammogram for malignant neoplasm of breast; Dietary counseling; Exercise counseling; Fibroid; Mood disorder (CMS/HCC); Lumbar facet arthropathy; Smoker; Pain in both lower extremities 05/12/2025 Travel 05/05/2025 Patient Outreach [facility] [address], [place] [phone] Eulalia Tony FNP Pre-visit Planning (SDOH screening positive and Tobacco screening negative) from Last 3 Months Immunizations Immunization Administration Dates Next Due Pfizer Covid-19 Vaccine 12+ 11/09/2021 Pfizer Covid-19 Vaccine 12+ reji-sucrose (Booth C ap) 11/09/2021 Pneumococcal Conjugate PCV 20 03/27/2023 Tdap 01/17/2022 Family History Medical History Relation Name Comments No Known Problems Brother Alcohol abuse Father Missael Kaye Diabetes Maternal Grandfather Quincy Valentinederon Arthritis Maternal Grandmother Luisa Bone Philippe Diabetes Maternal Grandmother Luisa Bone Philippe Hypertension Maternal Grandmother Luisa Bone Philippe Stroke Maternal Grandmother Luisa Philippe myocadial infarction Maternal Grandmother Luisa Bone To rres HIV Mother Elvia Mcgovern Hyperlipidemia Mother Elvia Mcgovern Hypertension Mother Elvia Ricesus Depression Sister Krystian Blair Relation Name Status [...] with others, in a hotel, in [place], living outside on the street, on a [...] Sign Reading Time Taken Comments Blood Pressure 106/80 06/21/2025 10:20 AM EDT Pulse 66 05/12/2025 9:26 AM [...] 05/12/2025 9:26 AM EDT Plan of Treatment Upcoming Encounters Date Type Department Care Team (Late st Contact Info) Description 07/17/2025 8:00 AM EDT Office Visit [facility] [address] [place] [address] Antonio Torrez Health Maintenance Due Date Last Done Comments HPV Vaccines (1 - 3-dose series) 1998 Hepatitis A Vaccines (1 of 2 - Risk 2-dose series) 2002 Hepatitis B Vaccines (1 of 3 - 19+ 3-dose series) 2002 Dental Prophylaxis 12/18/2021 06/19/2021, 1 , 01/14/2019 Dental Oral Exam 09/13/2023 03/13/2023, , 10/28/2018, Additional history exists Dental X-Ray: Full Mouth 06/20/2024 06/19/2021, 02/2018 COVID-19 Vaccine ( season) 2025 01/30/2022, 11/09/2021, 11/09/2021 Influenza Vaccine (#1) 2025 Depression Monitoring 11/12/2025 05/12/2025, 025 Alcohol/Substance Use Screening 12/05/2025 12/05/2024 Mammogram 04/05/2026 04/05/2024, 07/06, 07/28/2023 SDOH Screening 05/05/2026 05/05/2025 Disability Screening 05/12/2026 05/12/2025 Family Planning (PISQ) 05/14/2026 05/14/2025 Dental X-Ray: Bitewings 06/01/2026 05/31/20, 03/13/2023, 06/19/2021, Additional history exists Tobacco Screening 06/21/2026 06/21/2025 Cervical Cancer Screening 05/16/2027 HPV/Cotest 05/16/2027 05/16/2022, [...] to complete this topic HIV Screening Completed 05/25/2025, 12/03, 01/17/2022, Additional history exists Hepatitis C Screening Completed 05/25/2025 , 12/15/2023, 11/02/2020 HIB Vaccines Aged Out No longer eligi [...] Procedure Name Priority Date/Time Associated Diagnosis Comments CASE PRESENTATION, DETAILED AND EXTENSIVE TREATMENT PLANNING Routine 06/21/2025 9:00 AM EDT Symptomatic irreversible pulpitis 5 ENDODONTIC THERAPY, PREMOLAR TOOTH Routine 06/21/2025 9:00 AM EDT Symptomatic irreversible pulpitis CASE PRESENTATION, DETAILED AND EXTENSIVE TREATMENT PLANNING Routine 05/31/2025 11:30 AM EDT Symptomatic irreversible pulpitis INTRAORAL - PERIAPICAL FIRST RADIOGRAPHIC IMAGE Routine 05/31/2025 11:30 AM EDT Symptomatic irreversible pulpitis BITEWING - SINGLE RADIOGRAPHIC IMAGE Routine 05/31/2025 11:30 AM EDT Symptomatic irreversible pulpitis LIMITED ORAL EVALUATION - PROBLEM FOCUSED Routine 05/31/2025 11:30 AM EDT Symptomatic irreversible pulpitis HEPATITIS B SURFACE ANTIGEN, EIA Routine 05/25/2025 10:22 AM EDT Healthcare maintenance HEPATITIS B SURFACE ANTIBODY, QUALITATIVE Routine 05/25/2025 10:22 AM EDT Healthcare maintenance HEPATITIS B CORE AB TOTAL Routine 05/25/2025 10:22 AM EDT Healthcare maintenance HIV 1/2 ANTIGEN/ANTIBODY, FOURTH GENERATION W/RFL Routine 05/25/2025 10:22 AM EDT Healthcare maintenance RPR (MONITOR) W/REFL TITER Routine 05/25/2025 10:22 AM EDT Healthcare maintenance HEPATITIS C VIRAL RNA, QUANTITATIVE, REAL-TIME PCR Routine 05/25/2025 10:22 AM EDT Healthcare maintenance CBC WITH AUTO DIFFERENTIAL Routine 05/25/2025 10:22 AM EDT Healthcare maintenance COMPREHENSIVE METABOLIC PANEL Routine 05/25/2025 10:22 AM EDT Healthcare maintenance TSH W/REFLEX TO FT4 Routine 05/25/2025 1 0:22 AM EDT Healthcare maintenance HEMOGLOBIN A1C Routine 05/25/2025 10:22 AM EDT Healthcare maintenance LIPID PANEL, STANDARD Routine 05/25/2025 10:22 AM EDT Healthcare maintenance BI MR BREAST W AND WO CONTRAST BILATERAL Routine 04/05/2024 2:45 PM EDT Mastodynia, female PERIODIC ORAL EVALUATION - ESTABLISHED PATIENT Routine 03/13/2023 10:00 AM EDT ZZZ HISTORICAL HPV E6/E7 RFLX CARLOS 16 1845 Routine 05/16/2022 11:56 AM EDT PAP SMEAR Routine 05/16/2022 12:00 AM EDT PROPHYLAXIS - ADULT Routine 06/19/2021 1 2:00 AM EDT INTRAORAL - COMPLETE SERIES OF RADIOGRAPHIC IMAGES Routine 06/19/2021 12:00 AM EDT from Last 3 Months or Most Recently Relevant to Health Maintenance Results * TSH with Reflex to Free T4 (05/25/2025 10:22 AM EDT) TSH reflex Free T4 0.76 0.32 - 4.0 uIU/mL [facility] Blood 05/25/2025 10:2 2 AM EDT 05/25/2025 11:25 AM EDT us Eulalia Tony SIGNAL OPERATOR LAB BLOOD ORDERABLES Final Res ult [facility] [address] [place] [phone] * Hepatitis C Viral RNA, Quantitative, Real-Time PCR (05/25/2025 10:22 AM EDT) Pathologist [facility] Hepatitis C Viral Load <15 NOT DETECTED NOT DETECTED IU/mL [facility] HCV Log PCR <1.18 NOT DETECTED NOT DETECTED Log IU/mL [facility] Comment:For additional infor marina, please refer [email or web address](This link is being provided for informational/educational purposes only.)THIS TEST WAS PERFORMED AT:[email or web address] [place] [id number] KAUFMAN MD Blood 05/25/2025 10:2 2 AM EDT 05/25/2025 11:25 AM EDT us Eulalia Tony SIGNAL OPERATOR LAB BLOOD ORDERABLES Final Res ult [facility] [address] [place] [phone] * (ABNORMAL) CBC auto differential (05/25/2025 10:22 AM EDT) Pathologist [facility] White Blood Count 9.2 4.8 - 10.8 X10*3/uL [facility] Red Blood Count 4.45 4.20 - 5.50 X10*6/uL [facility] Hemoglobin 12.9 12.0 - 16.0 g/dl [facility] Hematocrit 40.1 37.0 - 47.0 % [facility] Mean Corpuscular Volume 90.1 80.0 - 98.0 fL [facility] Mean Corpuscular Hemoglobin 29.0 27.0 - 33.0 pg [facility] Mean Corpuscular HGB Conc 32.2 31.0 - 35.0 g/dl [facility] Red Cell Distribution Width 13.2 11.0 - 16.0 % [facility] Platelet Count 263 160 - 400 X10*3/uL [facility] Mean Platelet Volume 13.0(H) 9.4 - 12.3 fL [facility] Neutrophils Percent Auto 65.0 45 - 73 % [facility] Imm Gran Pct Auto 0.3 0.0 - 0.4 % [facility] Lymphocytes Percent Auto 27.9 20 - 40 % [facility] Monocytes Percent Auto 4.8 2 - 11 % [facility] Eosinophils Percent Auto 1.2 0 - 4 % [facility] Basophils Percent Auto 0.8 0 - 2 % [facility] NRBC Pct Auto 0.0 0.0 - 0.2 /100WBC [facility] Neutrophils Absolute Auto 6.0 2.0 - 8.3 x10*3/uL [facility] Imm Gran Abs Auto 0.03 0.00 - 0.03 X10*3/uL [facility] Lymphocytes Absolute Auto 2.6 1.2 - 4.9 X10*3/uL [facility] Monocytes Absolute Auto 0.4 0.1 - 1.2 X10*3/uL [facility] Eosinophils Absolute Auto 0.1 0.0 - 0.4 X10*3/uL [facility] Basophils Absolute Auto 0.1 0.0 - 0.2 X10*3/uL [facility] NRBC Abs Auto 0.000 0.0 - 0.012 X10*3/uL [facility] Blood Venous blood specimen / Unknown 05/25/2025 10:22 AM EDT 05/25/2025 11:25 AM EDT us Eulalia Tony SIGNAL OPERATOR LAB BLOOD ORDERABLES Final Res ult [facility] [address] [place] [phone] * Hepatitis B surface antigen, EIA (05/25/2025 10:22 AM EDT) Hepatitis B Surface Ag Negative Negative [facility] Blood Venous blood specimen / Unknown 05/25/2025 10:22 AM EDT 05/25/2025 11:25 AM EDT Eulalia Tony [facility] LAB BLOOD ORDERABLES Final Res ult Performing Organization Address [facility] Co de Phone Number [facility] [address] [place] [phone] * Hepatitis B Core Antibody, Total (05/25/2025 10:22 AM EDT) Hepatitis B Core Antibody Nonreactive Nonreactive [facility] Blood Venous blood specimen / Unknown 05/25/2025 10:22 AM EDT 05/25/2025 11:25 AM EDT Eulalia Tony [facility] LAB BLOOD ORDERABLES Final Res ult Performing Organization Address [facility] Phone Number [facility] [address] [place] [phone] * RPR (Monitor) with Reflex to??Titer (05/25/2025 10:22 AM EDT) RPR (Monitor) w/Refl Titer NON-REACTI VE NON-REACT DORIS [facility] Comment:THIS TEST WAS PERFOR MED AT:[email or web address] [place] [id number] KAUFMAN MD Rapid Plasma Reagin Ab Titer TNP [facility] Blood Venous blood specimen / Unknown 05/25/2025 10:22 AM EDT 05/25/2025 11:25 AM EDT Eulalia Tony [facility] LAB BLOOD ORDERABLES Final Res ult Performing Organization Address [facility] Co de Phone Number [facility] [address] [place] [phone] * HIV-1/2 Antigen and Antibodies, Fourth Generation, with Reflexes (05/25/2025 10:22 AM EDT) HIV AB/AG Nonreactive Nonreactive [facility] Comment:HIV-1 p24 Ag and/or HIV-1/HIV-2 Ab not detected.A test result that is nonreactive does not exclude thepossibility of exposure to or infection with HIV-1 and/orHIV-2. Nonreactive results in this assay for individualswith prior exposure to HIV-1 and/or HIV-2 may be due toantigen and antibody levels that are below the limit ofdetection of this assay.The [employer] HIV Ag/Ab Combo assay result andsupplemental assay results should be interpreted inconjunction with the patient's clinical presentation,history and other laboratory results. If the results areinconsistent with clinical evidence, additional testing issuggested to confirm the result. Blood Venous blood specimen / Unknown 05/25/2025 10:22 AM EDT 05/25/2025 11:25 AM EDT Eulalia Tony [facility] LAB BLOOD ORDERABLES Final Res ult Performing Organization Address City/[facility]/ZIP Co de Phone Number [facility] [address] [place] [phone] * Hepatitis B Surface Antibody, Qualitative (05/25/2025 10:22 AM EDT) Pathologist [facility] ~Hepatitis B Surface Antibody NONREACTIVE Nonreactive [facility] Comment:Nonreactive: < 8.00 mIU/mL Blood Venous blood specimen / Unknown 05/25/2025 10:22 AM EDT 05/25/2025 11:25 AM EDT Eulalia Tony SIGNAL OPERATOR LAB BLOOD ORDERABLES Final Res ult Performing Organization Address [facility] Co de Phone Number [facility] [address] [place] [phone] * Hemoglobin A1c (05/25/2025 10:22 AM EDT) Hemoglobin A1c 5.5 <6.0 % [facility] Comment:Hemoglobin A1C Refer ence Range Adults: 4.8 - 6.0 % Non diabetic: < 6.0 % Goal: < 7.0 %Additional Action Suggested: > 8.0 %Note: Hemoglobin A1c results are invalid for patients with abnormal amounts of HbF. Blood transfusions may impact the HbA1c concentration in the patient sample. Estimated Average Glucose 111 mg/dL [facility] Comment:eAG = Estimated ave rage glucose which is %A1C expressed asaverage glucose, using the formula of the H4B-[id number] Glucose study (ADAG), Diabetes Care, Vol.31,#8,May. 2007 Blood Venous blood specimen / Unknown 05/25/2025 10:22 AM EDT 05/25/2025 11:25 AM EDT us Eulalia Tony [facility] LAB BLOOD ORDERABLES Final Res ult [facility] [address] [place] [phone] * (ABNORMAL) Lipid Panel, Standard (05/25/2025 10:22 AM EDT) Triglycerides 89 <150 mg/dL [facility] Comment:Desirable Triglyceri de: less than 150 mg/dLBorderline High Triglyceride 150-199 mg/dLHigh Triglyceride: 200-499 mg/dLVery High Triglyceride: greater than or equal to 5OO mg/dL Cholesterol 171 <200 mg/dL [facility] Comment:Desirable Cholestero l: less than 200 mg/dLBorderline High Cholesterol: 200-239 mg/dLHigh Cholesterol: greater than 239 mg/dL LDL Cholesterol Calculated 120(H) <100 mg/dL [facility] Comment:Desirable LDL: less than 100 mg/dLNear Optimal/Above Optimal LDL: 110- 129 mg/dLBorderline High LDL: 130-159 mg/dLHigh LDL: 160-189 mg/dLVery High LDL: greater than or equal to 190 mg/dL HDL Cholesterol 34(L) >40 mg/dL [facility] Comment:Desirable HDL: great er than 40 mg/dL Note: This HDL assay may give artificially low results in patients with liver disease. Blood Venous blood specimen / Unknown 05/25/2025 10:22 AM EDT 05/25/2025 11:25 AM EDT Eulalia Tony SIGNAL OPERATOR LAB BLOOD ORDERABLES Final Res ult [facility] [address] [place] [phone] * (ABNORMAL) Comprehensive Metabolic Panel (05/25/2025 10:22 AM EDT) Sodium 139 135 - 145 mmol/L [facility] Potassium 4.2 3.3 - 5.1 mmol/L [facility] Chloride 107 96 - 108 mmol/L [facility] Carbon Dioxide 26 22 - 29 mmol/L [facility] Anion Gap 10(L) 12 - 20 [facility] Urea Nitrogen (BUN) 7(L) 9 - 16 mg/dL [facility] Creatinine, Serum 0.80 0.5 - 1.4 mg/dL [facility] Estimated Glomerular Filt Rate >60 [facility] Comment:Chronic Kidney Disea se: Estimated GFR < 60 mL/min/[id number] Kidney Disease: Estimated GFR < 15 mL/min/1.73m2 Glucose 97 60 - 115 mg/dL [facility] Calcium 9.2 8.4 - 10.2 mg/dL [facility] Bilirubin, Total 0.4 0.0 - 1.0 mg/dL [facility] Aspartate Amino Transferase 26 5 - 31 U/L [facility] Alanine Aminotransferase 19 0 - 31 U/L [facility] Total Protein 7.5 6.5 - 8.0 g/dL [facility] Albumin Level 4.7 3.5 - 5.0 g/dL [facility] Alkaline Phosphatase 77 39 - 117 U/L [facility] Blood Venous blood specimen / Unknown 05/25/2025 10:22 AM EDT 05/25/2025 11:25 AM EDT us Eulalia Tony SIGNAL OPERATOR LAB BLOOD ORDERABLES Final Res ult [facility] [address] [place] [phone] * BI MR Breast w and w/o Contrast Bilateral (04/05/2024 2:45 PM EDT) Anatomical Region Laterality Modality Breast Bilateral Magnetic Resonan ce 04/05/2024 2:45 PM EDT Narrative 04/14/2024 4:20 PM EDT [address] [address] Magnetic Resonance Report Signed Patient: Carolyn Campbell MR# : [id number] : 1985 Acct:[id number] Age/Sex: 38 / F ADM Date: 04/05/24 Loc: HO.MRI Attending Dr: Eulalia Tony SIGNAL OPERATOR Ordering Physician: Jose Bhagat MD Date of Service: 04/05/24 Procedure(s): MR breast BI wo/w con Accession Number(s): [id number] cc: Jose Bhagat MD; Eulalia Tony SIGNAL OPERATOR EXAMINATION: MR BREAST WITHOUT AND WITH CONTRAST, [...] in OV> 04/14/24 1616 DD/ 1445 TD/TT: Drafting Instructor: Procedure Note Donotuseinterpreter, Image - 04/14/2024 [place] [address] Magnetic Resonance Report Signed Patient: Carolyn CampbellMR# : [id number] : 1985Acct:[id number] Age/Sex: 38 / FADM Date: 04/05/24 Loc: HO.MRI Attending Dr: Eulalia HOLLINS Ordering Physician: Jose Bhagat MD Date of Service: 04/05/24 Procedure(s): MR breast BI wo/w con Accession Number(s): [id number] cc: Jose Bhagat MD; Eulalia Tony EXAMINATION: [...] in OV> 04/14/24 1616 DD/ 1445 TD/TT: Drafting Instructor: Jose Philippe MD [facility] MRI PROCEDURES Final Result * HPV E6/E7 RFLX CARLOS 16 18/45 (05/16/2022 11:56 AM EDT) HPV mRNA E6/E7 rflx Not Detected Not Detected [facility] [employer] [facility] Comment: Methodology: Locator Specialist-Mediated Amplification This assay detects E6/E7 viral messenger RNA (mRNA) from 14 high-risk HPV types (16,18,31,33,35,39,45,51,52,56,58,59,66,68). Cervical sources are required for HPV testing. If a vaginal source from a patient who has had a total hysterectomy with removal of cervix was submitted, please contact the testing laboratory for alternative testing options. For additional information, please refer to http://education.Plovgh/faq/CUW468y1 (This link if provided for information/ educational purposes only.) THIS TEST WAS PERFORMED AT: [email or web address] [address] [place] [address],[place] [address] DOT KAUFMAN MD 05/16/2022 11:5 6 AM EDT us Emma Dudley HISTORICAL/NON ORDERABLE LABS Fi nal Result [facility] [address] * Pap Smear (05/16/2022 12:00 AM EDT) Swab us Historical Provider LAB CYTOLOGY ORDERABLES F inal Result EXTERNAL LAB from Last 3 Months or Most Recently Relevant to Health Maintenance Insurance [facility] C3 DENTAL-[facility] MEDICAID STAND ADULT Care Teams Bioinformatics Specialist Relationship Specialty Start Date End Date Eulalia Tony FNP [address] [place] [phone] PCP - General Family Medicine 02/19/23
--- OUTSIDE RECORDS SUMMARY | 2025-06-28 14:54 | XMS_ITS | Encounter Summary ---
Author Organization [employer] Address [address] [place] [address] 7t [place] [address] Care Team Providers Care Senior Research Consultant Name Role Phone Eulalia Tony Primary Care Provider [phone] Encounter Details Date Type Department Care Team (Late Contact Info) Description 05/04/2023 Orders Only [facility] MEDICINE [address] [place] [address] Eulalia Tony FNP [address] [place], [place] [phone] Social History Tobacco Use Types Packs/Day Years [...] Encounters Date Type Department Care Team (Late Contact Info) Description 07/17/2025 8:00 AM EDT Office Visit [facility] CHC ADULT DENTAL [address] [place] [address] Antonio Torrez documented as of this encounter Procedures Procedure Name Priority Date/Time Associated Diagnosis Comments CHLAMYDIA/N. GONORRHOEAE RNA, TMA, UROGENITAL Routine 05/28/2023 3:34 PM EDT BACTERIAL VAGINOSIS PANEL Routine 05/28/2023 10:03 AM EDT documented in this encounter Results * Chlamydia/N. Gonorrhoeae RNA, TMA, Urogenitial (05/28/2023 3:34 PM EDT) CT PCR NOT DETECTED Not Detect. [facility] Comment:A not detected test [...] psychologicalconsequences. NG PCR NOT DETECTED Not Detect. [facility] Comment:A not detected test [...] PM EDT 05/29/2023 5:34 AM EDT Narrative [facility] - 05/29/2023 5:35 AM EDT Vaginal [facility] Exter nal Provider LAB MICROBIOLOGY - GENERAL ORDERABLES Final Result Performing Organization Address [facility]/[employer] de Phone Number [facility] [address] [place] [address] [phone] * Bacterial Vaginosis (05/28/2023 10:03 AM EDT) Trichomonas DNA Probe Negative Negative [facility] Gardnerella DNA Probe Negative Negative [facility] Bhargavi DNA Probe Negative Negative [facility] 05/28/2023 10:0 3 AM EDT 05/29/2023 10:10 AM EDT [facility] Exter nal Provider LAB MICROBIOLOGY - GENERAL ORDERABLES Final Result Performing Organization Address [facility] de Phone Number [facility] [address] [place] [phone] documented in this encounter Visit Diagnoses Not on filedocumented in this encounter Additional Health Concerns Assessment Noted Time PHQ-9 Depression Total Score: 7 03/27/20 9:58 AM EDT documented as of this encounter Care Teams Senior Research Consultant Relationship Specialty Start Date End Date Eulalia Tony FNP [address] [place] [address] PCP - General Family Medicine 02/19/23 documented as of this encounter
== END 2025-06-28 12:04 | disposition home or self-care (01) ==
LOC: HO.MAMMO 12:03
PROVIDERS: PCP Registered Nurse; Visit Provider Registered Nurse
DX: Z12.31 Encounter for screening mammogram for malignant neoplasm of breast (principal)
CPT/HCPCS: 77063; 77067

== ENCOUNTER → 2025-06-28 12:30 | Outpatient (BNV) | payer MEDICAID, SELFPAY | PROVIDERS: PCP Registered Nurse; Visit Provider Radiology Body Imaging | DX: Z12.31 Encounter for screening mammogram for malignant neoplasm of breast (principal) | CPT/HCPCS: 77063; 77067 ==

== ENCOUNTER 2025-07-06 09:39 | Outpatient (REF) | payer MEDICAID, SELFPAY ==
--- NOTE | ~2025-07-06 | US_ITS ---
EXAMINATION: Noninvasive assessment ARTERIAL DUPLEX, ANKLE BRACHIAL INDICES (ABIs), and PULSE VOLUME RECORDINGS (PVRs). CLINICAL INFORMATION: Pain in the lower extremities. TECHNIQUE: Ankle pulse volume recordings, ankle pressure measurements and ankle brachial indices were obtained of the lower extremity arterial system bilaterally. The study was performed only at rest. COMPARISON: None FINDINGS: BRACHIAL PRESSURES: Right: 135 Left: 134 ANKLE PRESSURES: Right: PT 147, DP 150 Left: PT 153, DP 146 ANKLE-BRACHIAL INDEX: Right: 1.11 Left: 1.13 ANKLE PVR WAVEFORMS: Right: Normal Left: Normal US/US TIANNA complete IMPRESSION: Ankle-brachial indicis: Right le.11 Left le.13 TIANNA Reference: - >1.4 = calcified vessels - 0.9 - 1.4 = normal - no significant arterial disease - 0.7 - 0.89 = mild peripheral arterial disease - 0.51 - 0.69 = moderate peripheral arterial disease - 0.50 = severe peripheral arterial disease - < .30 = critical arterial disease Electronically signed by: Ricky Diaz MD 07/06/2025 11:02 AM EDT
--- OUTSIDE RECORDS SUMMARY | 2025-07-06 10:41 | XMS_ITS | Encounter Summary ---
Author Organization [employer] Address [address] [facility] 7[address] [place] [address] Care Team Providers Care Product Safety And Standards Engineer Name Role Phone Eulalia Tony Primary Care Provider [phone] Encounter Details Date Type Department Care Team ([facility] st Contact Info) Description 02/24/2024 Orders Only [facility] CHC MED & PEDS [address] [place], [place] [phone] Eulalia Tony FNP [address] [place], [place] [phone] Bacterial vaginitis (Primary Dx) Social History Tobacco [...] with others, in a hotel, in a jail, living outside on the street, on a [...] Description 07/17/2025 8:00 AM EDT Office Visit [facility] ADULT DENTAL [address] [place] [address] Antonio Torrez documented as of this encounter Visit Diagnoses Diagnosis Bacterial vaginitis- Primary Unspecified vaginitis and vulvovaginitis documented in this encounter Additional Health Concerns Assessment Noted Time PHQ-9 Depression Total Score: 15 024 1:51 PM EDT documented as of this encounter Care Teams Product Safety And Standards Engineer Relationship Specialty Start Date End Date Eulalia Tony FNP [address] [place] [phone] PCP - General Family Medicine 02/19/23 documented as of this encounter
--- OUTSIDE RECORDS SUMMARY | 2025-07-06 10:41 | XMS_ITS | Encounter Summary ---
Author Organization [employer] Address [address] [place] [address] 7 [place] [address] Care Team Providers Care Olive Grader Name Role Phone Eulalia Tony Primary Care Provider [phone] Reason for Referral * Imaging (Routine) - Closed Specialty Diagnoses / Procedures Referred By Contac t Referred To Contact Radiology Diagnoses Mastodynia, female Procedures BI MR Breast w and w/o Contrast Bilateral Jose Bhagat MD [address] [place] [address] Phone: tel: fax: [address] Phone: tel: fax: Referral ID Status Reason Start Date Expiration Date Visits Re quested Visits Authorized [id number] Closed 03/08/2024 03/08/2025 1 1 Encounter Details Date Type Department Care Team (Late st Contact Info) Description 03/08/2024 Orders Only [facility] CHC MED & PEDS [address] [place], [place] [phone] Jose Bhagat MD [address] [place], [place] [phone] Mastodynia, female (Primary Dx) Social History Tobacco [...] Description 07/17/2025 8:00 AM EDT Office Visit [facility] ADULT DENTAL [address] [place] [address] Antonio Torrez documented as of this encounter [...] PM EDT Narrative 04/14/2024 4:20 PM EDT [place] [address] Magnetic Resonance Report Signed Patient: Carolyn Campbell MR# : [id number] : 1985 Acct:[id number] Age/Sex: 38 / F ADM Date: 04/05/24 Loc: HO.MRI Attending Dr: Eulalia Tony INSURANCE SALES PRODUCER Ordering Physician: Jose Bhagat MD Date of Service: 04/05/24 Procedure(s): MR breast BI wo/w con Accession Number(s): [id number] cc: Jose Bhagat MD; Eulalia Tony INSURANCE SALES PRODUCER EXAMINATION: MR BREAST WITHOUT AND WITH CONTRAST, [...] in OV> 04/14/24 1616 DD/ 1445 TD/TT: Bale Opener: Procedure Note Donotuseinterpreter, Image - 04/14/[address] [address] Magnetic Resonance Report Signed Patient: Carolyn CampbellMR# : [id number] : 1985Acct:[id number] Age/Sex: 38 / FADM Date: 04/05/24 Loc: HO.MRI Attending Dr: Eulalia Tony INSURANCE SALES PRODUCER Ordering Physician: Jose Bhagat MD Date of Service: 04/05/24 Procedure(s): MR breast BI wo/w con Accession Number(s): [id number] cc: Jose Bhagat MD; Eulalia Tony EXAMINATION: [...] in OV> 04/14/24 1616 DD/ 1445 TD/TT: Bale Opener: Jose Philippe MD IMG MRI PROCEDURES Final Result documented in this encounter Visit Diagnoses Diagnosis Mastodynia, female- Primary documented in this encounter Additional Health Concerns Assessment Noted Time PHQ-9 Depression Total Score: 15 024 1:51 PM EDT documented as of this encounter Care Teams Olive Grader Relationship Specialty Start Date End Date Eulalia Tony FNP [address] [place] [phone] PCP - General Family Medicine 02/19/23 documented as of this encounter
--- OUTSIDE RECORDS SUMMARY | 2025-07-06 10:41 | XMS_ITS | Encounter Summary ---
Author Organization [employer] Address [address] [place] [address] 7 [place] [address] Care Team Providers Care Investigation Division Sergeant Name Role Phone Patrick Guardado MD Primary Care Provider Nia Ferris Primary Care Provider Eulalia Caballero Primary Care Provider [phone] Encounter Details Date Type Department Care Team (Latest Contact Info) Description 06/19/2021 Abstract [facility] CONVERSIONS Dental, Provider, DDS Social History [...] Description 07/17/2025 8:00 AM EDT Office Visit [facility] CHC ADULT DENTAL [address] [place] [address] Antonio Torrez documented as of this encounter Visit Diagnoses Not on filedocumented in this encounter Care Teams Investigation Division Sergeant Relationship Specialty Start Date End Date Patrick Guardado MD PCP - General Family Medicine 07/19/19 08/31/22 Nia Edouard FNP PCP - General Family Medicine 09/01/22 02/18/23 Eulalia Tony FNP [address] [place] [address] PCP - General Family Medicine 02/19/23 documented as of this encounter
--- OUTSIDE RECORDS SUMMARY | 2025-07-06 10:41 | XMS_ITS | Encounter Summary ---
Author Organization [employer] Address [address] [place] [address] 7 [place] [address] Care Team Providers Care Bilingual Elementary School Teacher Name Role Phone Patrick Guardado MD Primary Care Provider Nai Ferris Primary Care Provider Eulalia Caballero Primary Care Provider [phone] Encounter Details Date Type Department Care Team (Latest Contact Info) Description 01/14/2019 Abstract [facility] CONVERSIONS Dental, Provider, DDS Social [...] Description 07/17/2025 8:00 AM EDT Office Visit [facility] CHC ADULT DENTAL [address] [place] [address] Antonio Torrez documented as of this encounter Visit Diagnoses Not on filedocumented in this encounter Care Teams Bilingual Elementary School Teacher Relationship Specialty Start Date End Date Patrick Guardado MD PCP - General Family Medicine 07/19/19 08/31/22 Nia Edouard FNP PCP - General Family Medicine 09/01/22 02/18/23 Eulalia Tony FNP [address] [place] [phone] PCP - General Family Medicine 02/19/23 documented as of this encounter
--- OUTSIDE RECORDS SUMMARY | 2025-07-06 10:41 | XMS_ITS | Clinical Summary ---
Author Organization [employer] Address [address] [facility] [address] [place] [address] Care Team Providers Care Sap Technical Architect Name Role Phone Eulalia Tony GURVINDER Primary Care Provider [phone] Allergies Active Allergy Reactions Criticality Noted Date [...] in female 06/12/2024 Overview (12/05/2024): Following with [facility] OBGYN Hx of hydrosalpinx, AUB, fibroids, possible ovarian cyst Assessment & Plan (12/05/2024 1:50 PM EST): - TONGUE STITCHER consult Sep 2024, discussed consideration of hysterectomy. Pt is considering. Encouraged to follow up as scheduled with [facility] OBGYN, sooner PRN. Abnormal uterine bleeding 06/12/2024 Overview (12/05/2024): Followed by [facility] TONGUE STITCHER - Dr. Meneses beginning of 2023, with plan to transition to [facility] fall. Last pap May 2022 NILM, HPV neg 09/14/24: EMB completed at [facility] - late endometrium with stromal breakdown [...] joint dysfunction 02/23/2024 Overview (06/12/2024): Following with [facility] Pain Management - Dr. Buchanan Recommendation per consult December 2023 for diagnostic SI joint injection with local anesthesia, and SI joint compression belt 02/25/24: Diagnostic SIJ injection (right): 50% pain relief. 03/31/24: Therapeutic SIJ injection (right): 70% pain relief Assessment & Plan (09/04/2024 9:01 PM EST): - Referred to physical therapy by [facility] Pain Management (reports consult scheduled for 09/09/24) - Scheduled for repeat right therapeutic SI joint injection Fibroid 02/22/2024 Overview (05/14/2025): 11/25/23: MRI pelvis wo/w contrast ordered by Dr. Meneses. Impression: pedunculated anterior subserosal fibroid measures 2.3 x 2.3 x 2.3 cm. Bilateral hematosalpinx. Per TONGUE STITCHER consult December 2023 - discussed findings as well as risk of myosarcoma (malignant muscle tumor) Plan: repeat pelvic US periodically, appt sooner if symptomatic 03/11/25: MRI Pelvis Demonstrated fibroid of the uterus and bilateral hydrosalpinx. pedunculated anterior fibroid measuring 3.5 x 3.1 x 3.7 cm. A right fundal fibroid is also noted measuring 11 mm in diameter Encouraged to follow up with [facility] OBGYN Generalized abdominal pain 12/15/2023 Assessment [...] Physical therapy sessions w/o noted improvement - [facility] Pain management: consult December 2023 with diagnosis [...] Physical therapy sessions w/o noted improvement - [facility] Pain management: consult December 2023 with diagnosis [...] sessions w/o noted improvement - Referral to [facility] Pain Management on 12/08/23 for further eval Cont with symptomatic management at home, reviewed red flag symptoms Hydrosalpinx 08/22/2023 Overview (05/14/2025): Chronic hydrosalpinx of left ovary noted CT Urogram Jun 2023 Following with [facility] OBGYN 03/11/25: MRI Pelvis - Demonstrated [...] TTP lateral left breast -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 Referred to [facility] for complex ovarian cyst in May 2023. -Upcoming CT scheduled 07/01/23 likely ordered by [facility] TONGUE STITCHER US completed 06/23/23 with the following impression: [...] as pharmacomtherapy, [facility] smoking cessation group, and [facility] pharmacy smoking cessation clinic Pre-contemplation phase Assessment [...] as pharmacomtherapy, [facility] smoking cessation group, and [facility] pharmacy smoking cessation clinic Pre-contemplation phase Assessment & Plan (06/26/2023 9:14 PM EDT): Currently smoking 2 cigg/day Encouraged smoking cessation resources such as pharmacomtherapy, [facility] smoking cessation group, and [facility] pharmacy smoking cessation clinic Assessment & Plan (03/28/2023 2:07 PM EDT): Currently smoking 2 cigg/day Encouraged smoking cessation resources such as pharmacomtherapy, [facility] smoking cessation group, and [facility] pharmacy smoking cessation clinic Healthcare maintenance 03/28/2023 Overview (05/14/2025): Last PE: 05/12/25 Pap: 05/16/22 NILM HPV neg Mammo: MRI bilat breasts 04/05/24 BIRADS 1. Colonoscopy: routine screening at 43 y/o Dental: [facility] Dental referral 02/22/24 BMD: starting at 63 y/o Assessment & Plan (12/15/2023 4:20 PM EDT): Pt utd with routine screening including pap, mammogram, requesting blood work today. Ordered , work requires TB screen Assessment & Plan (03/28/2023 2:07 PM EDT): Routine Health Maintenance Optometry: discuss at follow up Dental: [facility] Dental BMD: starting at 63 y/o Outstanding IZ: pneumococcal administered today, declined COVID bivalent Routine Cancer Screening Breast CA: Routine screening starting at 40 y/o Cervical CA: December 2018 NILM HPV neg Colon CA: routine screening starting at 45 y/o Infertility of tubal origin 03/27/2023 Assessment & Plan (03/28/2023 2:00 PM EDT): -Previously following with [facility], currently following [facility] TONGUE STITCHER -Suspect bilateral hydrosalpinx -Previously discussed option for IVF as pt expressed interest in conceiving. However, declines IVF at this time. Overactive bladder 03/27/2023 Assessment & Plan (03/27/2023 7:24 AM EDT): Followed by [facility] Urology (previously [facility] Urology) Tx with Detrol LA Trichilemmal [...] Type Department Care Team Description 06/27/2025 Telephone [facility]ULT D[facility] [address] [place] [address] Antonio Torrez 06/21/2025 9:00 AM EDT Office Visit [facility] ADULT D[facility] [address] [place] [address] Albaro Patel DMD Symptomatic irreversible pulpitis (Primary Dx) 06/12/2025 Results Follow-Up [facility] [address] [place] [address] Eulalia Tony FNP Lipid Panel, Standard, Hemoglobin A1c, TSH with Reflex to Free T4, Additional followed-up results: 8 05/31/2025 11:30 AM EDT Office Visit [facility] ADULT D[facility] [address] [place] [address] Albaro Patel DMD Symptomatic irreversible pulpitis (Primary Dx) 05/12/2025 9:30 AM EDT Office Visit [facility] [address] [place] [address] Eulalia Tony FNP Encounter for routine history and physical examination of adult (Primary Dx); Healthcare maintenance; Hydrosalpinx; Encounter for screening mammogram for malignant neoplasm of breast; Dietary counseling; Exercise counseling; Fibroid; Mood disorder (CMS/HCC); Lumbar facet arthropathy; Smoker; Pain in both lower extremities 05/12/2025 Travel 05/05/2025 Patient Outreach [facility] [address], [place] [phone] Eulalia Tony FNP Pre-visit Planning (SDOH screening [...] Description 07/17/2025 8:00 AM EDT Office Visit [facility]ULT [facility] [address] [place] [address] Antonio Torrez Health Maintenance Due Date Last [...] 05/12/2025, 025 Alcohol/Substance Use Screening 12/05/2025 12/05/2024 SDOH Screening 05/05/2026 05/05/2025 Disability Screening 05/12/2026 05/12/2025 Family Planning (PISQ) 05/14/2026 05/14/2025 Dental X-Ray: Bitewings 06/01/2026 05/31/20 25, 03/13/2023, 06/19/2021, Additional history exists Tobacco Screening 06/21/2026 06/21/2025 Mammogram 06/28/2026 06/28/2025, 0711/2023, 07/28/2023, Additional history exists Cervical Cancer Screening 05/16/2027 HPV/Cotest 05/16/2027 05/16/2022, [...] Name Priority Date/Time Associated Diagnosis Comments BI MAMMOGRAM SCREENING TOMOSYNTHESIS BILATERAL Routine 06/28/2025 12:29 PM EDT Encounter for screening mammogram for malignant neoplasm of breast CASE PRESENTATION, DETAILED AND EXTENSIVE TREATMENT PLANNING [...] Routine 05/25/2025 10:22 AM EDT Healthcare maintenance PERIODIC ORAL EVALUATION - ESTABLISHED PATIENT Routine [...] Recently Relevant to Health Maintenance Results * BI Mammogram Screening Tomosynthesis Bilateral (06/28/2025 12:29 PM EDT) Anatomical Region Laterality Modality Breast Bilateral Mammography 06/28/2025 12:2 9 PM EDT Narrative 06/30/2025 6:22 PM EDT [facility] [address] [place] [address] Dr. [place], [place] [address] Mammography Report Signed Patient: Carolyn Campbell MR# : [id number] : 1985 Acct:[id number] Age/Sex: 39 / F ADM Date: 06/28/25 Loc: HO.MAMMO Attending Dr: Eulalia Tony DRY BOX TENDER Ordering Physician: Eulalia Tony Results: 1Negat doris Date of Service: 06/28/25 Follow Up: 1 Year From Orig inal Mammogram Procedure(s): MM tomosynthesis screening BI Accession Number(s): [id number] cc: Eulalia Tony Reason For Exam: 39 y/o F due for screening mammo EXAMINATION: MM SCREENING DIGITAL BREAST TOMOSYNTHESIS, BILATERAL CLINICAL INFORMATION: Screening. Asymptomatic. COMPARISON: Mammogram on July 28, 2023. Breast MRI on April 05, 2024. TECHNIQUE: Digital breast tomosynthesis is performed in mediolateral oblique and craniocaudal views along with computer-aided detection (CAD). Synthesized 2D images are generated from the tomosynthesis. FINDINGS: BREAST COMPOSITION: The breasts are heterogeneously dense, which may obscure small masses. BILATERAL BREASTS: No significant masses, suspicious calcifications or other abnormalities are seen in either breast. MM/MM tomosynthesis screening BI IMPRESSION: BILATERAL BREASTS: Negative, no mammographic evidence of malignancy. Normal interval follow-up is recommended in 12 months. ASSESSMENT: BI-RADS: Category 1: Negative RECOMMENDATION: Routine annual mammography screening. FOLLOW-UP: 1 year F/U This examination should not preclude the clinical evaluation of a suspicious palpable abnormality. This patient's information was entered into a reminder system with a target due date for their next mammogram. Electronically signed by: Candi Goodrich MD 06/30/2025 06:19 PM EDT Dictated By: Candi Goodrich MD Signed By: <Electronically signed by Candi Goodrich MD in OV> 06/30/25 1819 DD/ 1229 TD/TT: 06/28/25 1236 Diesel Engine I Pipe Fitter: Procedure Note Donotuseinterpreter, Image - 06/30/2025 [facility] [address] Hunt, [place] [address] Mammography Report Signed Patient: Guera Campbellyessica# : [id number] : 1985Acct:[id number] Age/Sex: 39 / FADM Date: 06/28/25 Loc: HO.MAMMO Attending Dr: Eulalia HOLLINS Ordering Physician: Eulalia TonyPResults: 1Negat doris Date of Service: 06/28/25Follow Up: 1 Year From Orig ina Mammogram Procedure(s): MM tomosynthesis screening BI Accession Number(s): [id number] cc: Eulalia Tony Reason For Exam: 39 y/o F due for screening mammo EXAMINATION: MM SCREENING DIGITAL BREAST TOMOSYNTHESIS, BILATERAL CLINICAL INFORMATION: Screening. Asymptomatic. COMPARISON: Mammogram on July 28, 2023. Breast MRI on April 05, 2024. TECHNIQUE: Digital breast tomosynthesis is performed in mediolateral oblique and craniocaudal views along with computer-aided detection (CAD). Synthesized 2D images are generated from the tomosynthesis. FINDINGS: BREAST COMPOSITION: The breasts are heterogeneously dense, which may obscure small masses. BILATERAL BREASTS: No significant masses, suspicious calcifications or other abnormalities are seen in either breast. MM/MM tomosynthesis screening BI IMPRESSION: BILATERAL BREASTS: Negative, no mammographic evidence of malignancy. Normal interval follow-up is recommended in 12 months. ASSESSMENT: BI-RADS: Category 1: Negative RECOMMENDATION: Routine annual mammography screening. FOLLOW-UP: 1 year F/U This examination should not preclude the clinical evaluation of a suspicious palpable abnormality. This patient's information was entered into a reminder system with a target due date for their next mammogram. Electronically signed by: Candi Goodrich MD 06/30/2025 06:19 PM EDT Dictated By: Candi Goodrich MD Signed By: <Electronically signed by Candi Goodrich MD in OV> 06/30/25 1819 DD/ 1229 TD/TT: 06/28/25 1236 Diesel Engine I Pipe Fitter: Eulalia HOLLINS IMG BI PROCEDURES Final Result * TSH with Reflex to Free T4 (05/25/2025 10:22 AM EDT) [facility] TSH reflex Free T4 0.76 0.32 - 4.0 uIU/mL [facility] Blood 05/25/2025 10:2 2 AM EDT 05/25/2025 11:25 AM EDT Eulalia Tony [facility] BLOOD ORDERABLES Final Res ult Performing Organization Address [facility] Phone Number [facility] [address] [place] [phone] * Hepatitis C Viral RNA, Quantitative, Real-Time PCR (05/25/2025 10:22 AM EDT) [facility] Hepatitis C Viral Load <15 NOT DETECTED NOT DETECTED IU/mL [facility] HCV Log PCR <1.18 NOT DETECTED NOT DETECTED Log IU/mL [facility] Comment:For additional infor marina, please refer tohttp://education.LearnShark/faq/UXY91n2(This link is being provided for informational/educational purposes only.)THIS TEST WAS PERFORMED AT:[facility] [place] [id number] KAUFMAN MD Blood 05/25/2025 10:2 2 AM EDT 05/25/2025 11:25 AM EDT Eulalia Tony [facility] BLOOD ORDERABLES Final Res ult Performing Organization Address [facility] de Phone Number [facility] [address] [place] [phone] * (ABNORMAL) CBC auto differential (05/25/2025 10:22 AM EDT) [facility] White Blood Count 9.2 4.8 - 10.8 X10*3/uL [facility] Red Blood Count 4.45 4.20 - 5.50 X10*6/uL [facility] Hemoglobin 12.9 12.0 - 16.0 g/dl [facility] Hematocrit 40.1 37.0 - 47.0 % [facility] Mean Corpuscular Volume 90.1 80.0 - 98.0 fL [facility] Mean Corpuscular Hemoglobin 29.0 27.0 - 33.0 pg [facility] Mean Corpuscular HGB Conc 32.2 31.0 - 35.0 g/dl [facility] Red Cell Distribution Width 13.2 11.0 - 16.0 % [facility] Platelet Count 263 160 - 400 X10*3/uL [facility] Mean Platelet Volume 13.0(H) 9.4 - 12.3 fL [facility] Neutrophils Percent Auto 65.0 45 - 73 % [facility] Imm Gran Pct Auto 0.3 0.0 - 0.4 % [facility] Lymphocytes Percent Auto 27.9 20 - 40 % [facility] Monocytes Percent Auto 4.8 2 - 11 % [facility] Eosinophils Percent Auto 1.2 0 - 4 % [facility] Basophils Percent Auto 0.8 0 - 2 % [facility] NRBC Pct Auto 0.0 0.0 - 0.2 /100WBC [facility] Neutrophils Absolute Auto 6.0 2.0 - 8.3 x10*3/uL [facility] Imm Gran Abs Auto 0.03 0.00 - 0.03 X10*3/uL [facility] Lymphocytes Absolute Auto 2.6 1.2 - 4.9 X10*3/uL [facility] Monocytes Absolute Auto 0.4 0.1 - 1.2 X10*3/uL [facility] Eosinophils Absolute Auto 0.1 0.0 - 0.4 X10*3/uL [facility] Basophils Absolute Auto 0.1 0.0 - 0.2 X10*3/uL [facility] NRBC Abs Auto 0.000 0.0 - 0.012 X10*3/uL [facility] Blood Venous blood specimen / Unknown 05/25/2025 10:22 AM EDT 05/25/2025 11:25 AM EDT us Eulalia Tony DRY BOX TENDER LAB BLOOD ORDERABLES Final Res ult Performing Organization Address [facility]/ZIP Co de Phone Number [facility] [address] [place] [phone] * Hepatitis B surface antigen, EIA (05/25/2025 10:22 AM EDT) Hepatitis B Surface Ag Negative Negative [facility] Blood Venous blood specimen / Unknown 05/25/2025 10:22 AM EDT 05/25/2025 11:25 AM EDT Eulalia Tony DRY BOX TENDER LAB BLOOD ORDERABLES Final Res ult Performing Organization Address [facility] Co de Phone Number [facility] [address] [place] [phone] * Hepatitis B Core Antibody, Total (05/25/2025 10:22 AM EDT) Hepatitis B Core Antibody Nonreactive Nonreactive [facility] Blood Venous blood specimen / Unknown 05/25/2025 10:22 AM EDT 05/25/2025 11:25 AM EDT Eulalia Tony DRY BOX TENDER LAB BLOOD ORDERABLES Final Res ult Performing Organization Address [facility] Co de Phone Number [facility] [address] [place] [phone] * RPR (Monitor) with Reflex to??Titer (05/25/2025 10:22 AM EDT) RPR (Monitor) w/Refl Titer NON-REACTI VE NON-REACT DORIS [facility] Comment:THIS TEST WAS PERFOR MED AT:[facility] [place] [id number] KAUFMAN MD Rapid Plasma Reagin Ab Titer TNP [facility] Blood Venous blood specimen / Unknown 05/25/2025 10:22 AM EDT 05/25/2025 11:25 AM EDT Eulalia Tony [facility] BLOOD ORDERABLES Final Res ult Performing Organization Address [facility] Co de Phone Number [facility] [address] [place] [phone] * HIV-1/2 Antigen and Antibodies, Fourth Generation, with Reflexes (05/25/2025 10:22 AM EDT) HIV AB/AG Nonreactive Nonreactive [facility] Comment:HIV-1 p24 Ag and/or HIV-1/HIV-2 Ab not detected.A test result that is nonreactive does not exclude thepossibility of exposure to or infection with HIV-1 and/orHIV-2. Nonreactive results in this assay for individualswith prior exposure to HIV-1 and/or HIV-2 may be due toantigen and antibody levels that are below the limit ofdetection of this assay.The [email or web address] HIV Ag/Ab Combo assay result andsupplemental assay results should be interpreted inconjunction with the patient's clinical presentation,history and other laboratory results. If the results areinconsistent with clinical evidence, additional testing issuggested to confirm the result. Blood Venous blood specimen / Unknown 05/25/2025 10:22 AM EDT 05/25/2025 11:25 AM EDT Eulalia Tony [facility] BLOOD ORDERABLES Final Res ult Performing Organization Address [facility]/ZIP Co de Phone Number [facility] [address] [place] [phone] * Hepatitis B Surface Antibody, Qualitative (05/25/2025 10:22 AM EDT) ~Hepatitis B Surface Antibody NONREACTIVE Nonreactive [facility] Comment:Nonreactive: < 8.00 mIU/mL Blood Venous blood specimen / Unknown 05/25/2025 10:22 AM EDT 05/25/2025 11:25 AM EDT us Eulalia Tony DRY BOX TENDER LAB BLOOD ORDERABLES Final Res ult Performing Organization Address [facility] Co de Phone Number [facility] [address] [place] [phone] * Hemoglobin A1c (05/25/2025 10:22 AM EDT) Hemoglobin A1c 5.5 <6.0 % [facility] Comment:Hemoglobin A1C Refer ence Range Adults: 4.8 - 6.0 % Non diabetic: < 6.0 % Goal: < 7.0 %Additional Action Suggested: > 8.0 %Note: Hemoglobin A1c results are invalid for patients with abnormal amounts of HbF. Blood transfusions may impact the HbA1c concentration in the patient sample. Estimated Average Glucose 111 mg/dL [facility] Comment:eAG = Estimated ave rage glucose which is %A1C expressed asaverage glucose, using the formula of the P5T-XtdaustDokypzl Glucose study (ADAG), Diabetes Care, Vol.31,#8,May. 2007 Blood Venous blood specimen / Unknown 05/25/2025 10:22 AM EDT 05/25/2025 11:25 AM EDT us Eulalia Tony DRY BOX TENDER LAB BLOOD ORDERABLES Final Res ult Performing Organization Address [facility] Co de Phone Number [facility] [address] [place] [phone] * (ABNORMAL) Lipid Panel, Standard (05/25/2025 10:22 AM EDT) Triglycerides 89 <150 mg/dL [facility] Comment:Desirable Triglyceri de: less than 150 mg/dLBorderline High Triglyceride 150-199 mg/dLHigh Triglyceride: 200-499 mg/dLVery High Triglyceride: greater than or equal to 5OO mg/dL Cholesterol 171 <200 mg/dL [facility] Comment:Desirable Cholestero l: less than 200 mg/dLBorderline High Cholesterol: 200-239 mg/dLHigh Cholesterol: greater than 239 mg/dL LDL Cholesterol Calculated 120(H) <100 mg/dL [facility] Comment:Desirable LDL: less than 100 mg/dLNear Optimal/Above Optimal LDL: 110- 129 mg/dLBorderline High LDL: 130-159 mg/dLHigh LDL: 160-189 mg/dLVery High LDL: greater than or equal to 190 mg/dL HDL Cholesterol 34(L) >40 mg/dL [facility] Comment:Desirable HDL: great er than 40 mg/dL Note: This HDL assay may give artificially low results in patients with liver disease. Blood Venous blood specimen / Unknown 05/25/2025 10:22 AM EDT 05/25/2025 11:25 AM EDT us Eulalia Tony DRY BOX TENDER LAB BLOOD ORDERABLES Final Res ult [facility] [address] [place] [phone] * (ABNORMAL) Comprehensive Metabolic Panel (05/25/2025 10:22 AM EDT) Sodium 139 135 - 145 mmol/L [facility] Potassium 4.2 3.3 - 5.1 mmol/L [facility] Chloride 107 96 - 108 mmol/L [facility] Carbon Dioxide 26 22 - 29 mmol/L [facility] Anion Gap 10(L) 12 - 20 [facility] Urea Nitrogen (BUN) 7(L) 9 - 16 mg/dL [facility] Creatinine, Serum 0.80 0.5 - 1.4 mg/dL [facility] Estimated Glomerular Filt Rate >60 [facility] Comment:Chronic Kidney Disea se: Estimated GFR < 60 mL/min/1.15w3Hhsmoh Kidney Disease: Estimated GFR < 15 mL/min/1.73m2 Glucose 97 60 - 115 mg/dL [facility] Calcium 9.2 8.4 - 10.2 mg/dL [facility] Bilirubin, Total 0.4 0.0 - 1.0 mg/dL [facility] Aspartate Amino Transferase 26 5 - 31 U/L [facility] Alanine Aminotransferase 19 0 - 31 U/L [facility] Total Protein 7.5 6.5 - 8.0 g/dL [facility] Albumin Level 4.7 3.5 - 5.0 g/dL [facility] Alkaline Phosphatase 77 39 - 117 U/L [facility] Blood Venous blood specimen / Unknown 05/25/2025 10:22 AM EDT 05/25/2025 11:25 AM EDT us Eulalia Tony DRY BOX TENDER LAB BLOOD ORDERABLES Final Res ult Performing Organization Address City/[facility]/ZIP Co de Phone Number [facility] [address] [place] [phone] * HPV E6/E7 RFLX CARLOS 16 18/45 (05/16/2022 11:56 AM EDT) HPV mRNA E6/E7 rflx Not Detected Not Detected [facility] Comment: Methodology: Material Inspector-Mediated Amplification This assay detects E6/E7 viral messenger RNA (mRNA) from 14 high-risk HPV types (16,18,31,33,35,39,45,51,52,56,58,59,66,68). Cervical sources are required for HPV testing. If a vaginal source from a patient who has had a total hysterectomy with removal of cervix was submitted, please contact the testing laboratory for alternative testing options. For additional information, please refer to http://education.LearnShark/faq/CBH668v3 (This link if provided for information/ educational purposes only.) THIS TEST WAS PERFORMED AT: [facility] [address] [place] [address] [address],[place] [phone] DOT KAUFMAN MD 05/16/2022 11:5 6 AM EDT us Emma Dudley HISTORICAL/NON ORDERABLE LABS Fi nal Result Performing Organization Address City/[facility]/ZIP Co de Phone Number [facility] [address] [place], [place] [address] * Pap Smear (05/16/2022 12:00 AM EDT) Swab us Historical Provider MD LAB CYTOLOGY ORDERABLES F inal Result EXTERNAL LAB from Last 3 Months or Most Recently Relevant to Health Maintenance Insurance [facility] [address] [facility] [facility] [address] MEDICAID STAND ADULT Care Teams Sap Technical Architect Relationship Specialty Start Date End Date Eulalia Tony FNP [address] [place] [address] PCP - General Family Medicine 02/19/23
--- OUTSIDE RECORDS SUMMARY | 2025-07-06 10:41 | XMS_ITS | Encounter Summary ---
Author Organization [employer] Address [address] [facility] 7t [place] [address] Care Team Providers Care Head Irrigator Name Role Phone Eulalia Tony SOFT MUD MOLDER Primary Care Provider [phone] Encounter Details Date Type Department Care Team (Late st Contact Info) Description 12/06/2024 Orders Only [facility] MED & PEDS [address] [place] [address] Provider, MD Hoang Social History Tobacco Use [...] with others, in a hotel, in a snf, living outside on the street, on a [...] [facility] ADULT D[facility] [address] [place] [address] Antonio Torrez documented as of this encounter Procedures Procedure Name Priority Date/Time Associated Diagnosis Comments US RENAL BI Routine 12/06/2024 2:56 PM EST SURGICAL PATHOLOGY Routine 09/14/2024 12 :20 PM EST documented in this encounter Results * US RENAL BI (12/06/2024 2:56 PM EST) Anatomical Region Laterality Modality Abdomen Ultrasound 12/06/2024 2:56 PM EST Narrative 12/06/2024 2:58 PM EST [address] [address] Ultrasound Report Signed Patient: Carolyn Campbell MR# : [id number] : 1985 Acct:[id number] Age/Sex: 39 / F ADM Date: 12/06/24 Loc: HO.US Attending Dr: Eulalia HOLLINS Ordering Physician: Eulalia Tony Date of Service: 12/06/24 Procedure(s): US renal BI Accession Number(s): [id number] cc: Eulalia Tony CLINICAL HISTORY: 39 y [...] in OV> 12/06/241456 DD/ 55 TD/TT: 12/06/241455 Civil Design Specialist: Procedure Note Donotuseinterpreter, Image - 12/06/2024 [place] [address] Ultrasound Report Signed Patient: Carolyn Campbell# : [id number] : 1985Acct:[id number] Age/Sex: 39 / FADM Date: 12/06/24 Loc: HO.US Attending Dr: Eulalia HOLLINS Ordering Physician: Eulalia Tony Date of Service: 12/06/24 Procedure(s): US renal BI Accession Number(s): [id number] cc: Eulalia Tony CLINICAL HISTORY: 39 y [...] in OV> 12/06/241456 DD/ 55 TD/TT: 12/06/241455 Civil Design Specialist: us Eulalia HOLLINS IMG US PROCEDURES Final Result * Surgical Pathology (09/14/2024 12:20 PM EST) us Historical Provider MD LAB PATHOLOGY ORDERABLES Final Result documented in this encounter Visit Diagnoses Not on filedocumented in this encounter Additional Health Concerns Assessment Noted Time PHQ-9 Depression Total Score: 12 024 10:15 AM EST documented as of this encounter Care Teams Head Irrigator Relationship Specialty Start Date End Date Eulalia Tony FNP [address] [place] [phone] PCP - General Family Medicine 02/19/23 documented as of this encounter
--- OUTSIDE RECORDS SUMMARY | 2025-07-06 10:41 | XMS_ITS | Encounter Summary ---
Author Organization [employer] Address [address] [place] [address] [address] [place] [address] Care Team Providers Care Credit Card Specialist Name Role Phone Eulalia Tony Primary Care Provider [phone] Reason for Referral * Imaging (Routine) - Closed Specialty Diagnoses / Procedures Referred By Contac t Referred To Contact Radiology Diagnoses Ovarian mass, right Procedures MR Pelvis w/ and w/o Contrast Marie Torrez MD [address] [place] [address] Phone: tel: fax: [address] Phone: tel: fax: Referral ID Status Reason Start Date Expiration Date Visits Re quested Visits Authorized [id number] Closed 02/09/2025 02/09/2026 1 1 Encounter Details Date Type Department Care Team (Late st Contact Info) Description 02/09/2025 Orders Only [facility] CH[facility] MED & PEDS [address] [place], [place] [phone] Marie Torrez MD [address] [place], [place] [phone] Ovarian mass, right (Primary Dx) Social History [...] with others, in a hotel, in a long term, living outside on the street, on a [...] Description 07/17/2025 8:00 AM EDT Office Visit [facility] ADULT D[facility]AL [address] [place] [address] Antonio Torrez documented as of this encounter [...] PM EDT Narrative 03/13/2025 8:06 AM EDT [address] [address] Magnetic Resonance Report Signed Patient: Carolyn Campbell MR# : [id number] : 1985 Acct:[id number] Age/Sex: 39 / F ADM Date: 03/11/25 Loc: HO.MRI Attending Dr: Marie Torrez MD Ordering Physician: Marie Torrez MD Date of Service: 03/11/25 Procedure(s): MR pelvis wo/w con Accession Number(s): [id number] cc: Marie Torrez MD; Eulalia Tony LABORER MINE EXAMINATION: MR PELVIS WITHOUT THEN WITH IV [...] an outside CT of the pelvis from [facility] dated 01/10/2025. FINDINGS: The uterus measures approximately [...] 03/13/25 0802 DD/ 1232 TD/TT: 03/11/25 1331 Reimbursement Counselor: Procedure Note Donotuseinterpreter, Image - 03/13/2025 [place] [address] Magnetic Resonance Report Signed Patient: Carolyn Campbell# : [id number] : 1985Acct:[id number] Age/Sex: 39 / FADM Date: 03/11/25 Loc: .MRI Attending Dr: Marie Torrez MD Ordering Physician: Marie Torrez MD Date of Service: 03/11/25 Procedure(s): MR pelvis wo/w con Accession Number(s): [id number] cc: Marie Torrez MD; Eulalia Tony EXAMINATION: [...] an outside CT of the pelvis from [facility] dated 01/10/2025. FINDINGS: The uterus measures approximately [...] 03/13/25 0802 DD/ 1232 TD/TT: 03/11/25 1331 Reimbursement Counselor: Marie Torrez MD IM MRI PROCEDURES Edited R esult - Final documented in this encounter Visit Diagnoses Diagnosis Ovarian mass, right- Primary documented in this encounter Additional Health Concerns Assessment Noted Time PHQ-9 Depression Total Score: 12 08/29/ 024 10:15 AM EST documented as of this encounter Care Teams Credit Card Specialist Relationship Specialty Start Date End Date Eulalia Tony FNP [address] [place] [phone] PCP - General Family Medicine 02/19/23 documented as of this encounter
--- OUTSIDE RECORDS SUMMARY | 2025-07-06 10:41 | XMS_ITS | Clinical Summary ---
Author Organization [facility] Address [address] [place] [address] Phone Care Team Providers Care Interlocker Maintainer Name Role Phone Physician, No Pcp Primary [...] of 3 - 19+ 3-dose series) 2002 HPV Vaccines (1 - 3-dose SCD M series) 2010 Hepatitis C Screening 09/07/2022 Social Influencers of Health Screening 09/07/2022 Depression Screening 10/05/2024 Cervical Cancer Screening: P ap Smear 05/16/2025 05/16/2022 COVID-19 Vaccine (2 - 2024-2 6 season) 2025 11/09/2021 Influenza Vaccine (#1) 2025 DTaP,Tdap,and Td Vaccines (2 - Td or Tdap) 01/18/2032 01/17/2022 RSV Immunization Adult Patie nts (1 - 1-dose 75+ series) 2058 Pneumococcal Vaccine: Pediat rics (0 to 5 [...] to complete this topic Insurance MEDICAID - [place] Care Teams Interlocker Maintainer Relationship Specialty Start Date End Date Physician, No Pcp PCP - General 01/10/25
--- OUTSIDE RECORDS SUMMARY | 2025-07-06 10:41 | XMS_ITS | Encounter Summary ---
Author Organization [employer] Address [address] [facility] [address] [place] [address] Care Team Providers Care Slag Dumper Name Role Phone Eulalia Tony Primary Care Provider [phone] Reason for Visit * Reason Onset Date Comments Appointment Request 12/14/2023 Encounter Details Date Type Department Care Team ([facility] st Contact Info) Description 12/14/2023 Telephone [facility] MED[facility] [address] [place] [address] Eulalia Tony FNP [address] [place] [address] Appointment Request Social History Tobacco Use Types [...] pt needs PE for work by 12/16. Managed Services Sales Consultant found no availability. Please contact pt at [phone]. documented in this encounter Plan of Treatment Upcoming Encounters Date Type Department Care Team (Late st Contact Info) Description 07/17/2025 8:00 AM EDT Office Visit [facility] ADULT DENTAL [address] [place] [address] Antonio Torrez documented as of this encounter Visit Diagnoses Not on filedocumented in this encounter Additional Health Concerns Assessment Noted Time PHQ-9 Depression Total Score: 7 03/27/20 9:58 AM EDT documented as of this encounter Care Teams Slag Dumper Relationship Specialty Start Date End Date Eulalia Tony FNP [address] [place] [address] PCP - General Family Medicine 02/19/23 documented as of this encounter
--- OUTSIDE RECORDS SUMMARY | 2025-07-06 10:41 | XMS_ITS | Encounter Summary ---
Author Organization [employer] Address [address] [place] [address] [address] [place] [address] Care Team Providers Care Devulcanizer Head Name Role Phone Eulalia Tony Primary Care Provider [phone] Encounter Details Date Type Department Care Team (Late Contact Info) Description 05/04/2023 Orders Only [facility] MEDICINE [address] [place] [address] Eulalia Tony FNP [address] [place], [place] [phone] Social History Tobacco Use Types Packs/Day Years [...] Description 07/17/2025 8:00 AM EDT Office Visit [facility] ADULT DENTAL [address] [place] [address] Antonio Torrez documented as of this encounter Procedures Procedure Name Priority Date/Time Associated Diagnosis Comments CHLAMYDIA/N. GONORRHOEAE RNA, TMA, UROGENITAL Routine 05/28/2023 3:34 PM EDT BACTERIAL VAGINOSIS PANEL Routine 05/28/2023 10:03 AM EDT documented in this encounter Results * Chlamydia/N. Gonorrhoeae RNA, TMA, Urogenitial (05/28/2023 3:34 PM EDT) CT PCR NOT DETECTED Not Detect. [facility] Comment:A not detected test result [...] psychologicalconsequences. NG PCR NOT DETECTED Not Detect. [facility] Comment:A not detected test result [...] PM EDT 05/29/2023 5:34 AM EDT Narrative [facility] - 05/29/2023 5:35 AM EDT Vaginal [facility] Exter nal Provider LAB MICROBIOLOGY - GENERAL ORDERABLES Final Result Performing Organization Address [facility] Co de Phone Number [facility] [address] [place] [address] [phone] * Bacterial Vaginosis (05/28/2023 10:03 AM EDT) Trichomonas DNA Probe Negative Negative [facility] Gardnerella DNA Probe Negative Negative [facility] Bhargavi DNA Probe Negative Negative [facility] 05/28/2023 10:0 3 AM EDT 05/29/2023 10:10 AM EDT [facility] Exter nal Provider LAB MICROBIOLOGY - GENERAL ORDERABLES Final Result Performing Organization Address [facility] de Phone Number [facility] [address] [place] [phone] documented in this encounter Visit Diagnoses Not on filedocumented in this encounter Additional Health Concerns Assessment Noted Time PHQ-9 Depression Total Score: 7 03/27/20 9:58 AM EDT documented as of this encounter Care Teams Devulcanizer Head Relationship Specialty Start Date End Date Eulalia Tony FNP [address] [place] [address] PCP - General Family Medicine 02/19/23 documented as of this encounter
== END 2025-07-06 09:40 | disposition home or self-care (01) ==
LOC: HO.US 09:39
PROVIDERS: PCP Registered Nurse; Visit Provider Registered Nurse
DX: M79.604 Pain in right leg (principal); M79.605 Pain in left leg
CPT/HCPCS: 93923

== ENCOUNTER → 2025-07-06 09:41 | Outpatient (BNV) | payer MEDICAID, SELFPAY | PROVIDERS: PCP Registered Nurse; Visit Provider Radiology Diagnostic Radiology | DX: M79.661 Pain in right lower leg (principal); M79.662 Pain in left lower leg | CPT/HCPCS: 93923 ==